=== PATIENT | female | born 1970 | race Caucasian/White ===

== ENCOUNTER 2019-04-15 13:41 | Emergency (ER) | payer MEDICAID ==
[2019-04-15] MEDS ORDERED: Sodium Chloride 0.9% 1,000 ML IV SCH (14:30)
[2019-04-15] MEDS ORDERED: Ondansetron 4 MG/2 ML SDV IVPUSH ONE (14:30)
[2019-04-15] MEDS ORDERED: LORazepam 2 MG/ML SDV IVPUSH ONE (14:31)
--- NOTE | 2019-04-15 14:42 | EDM.PDOC ---
ED HPI GENERAL MEDICAL PROBLEM - General Chief Complaint: Abdominal Pain Time Seen by Provider: 04/15/19 14:20 Source of Information: Reports: Patient, EMS, EMS Notes Reviewed History Limitations: Reports: No Limitations, Intoxication - History of Present Illness INITIAL COMMENTS - FREE TEXT/NARRATIVE: This patient presents to the ED via EMS for evaluation of abdominal pain and vomiting. EMS was called to the residence for an unresponsive patient; however, upon arrival the patient was not unresponsive. She states she has been drinking heavily and daily since February. She states that she drank 1 pint of vodka yesterday and has been vomiting. Vomiting started yesterday and has gotten much worse today. She is also complaining of right upper quadrant abdominal pain with nausea. She states she started drinking when she woke up this morning because she "was in so much pain." She does not know how much alcohol she has drank today. She has vomited countless times today. She is unsure if she had any urine output this morning or not. She is also complaining of a headache, denies chest pain. Onset: Gradual Onset Date: 04/12/19 Duration: Getting Worse Location: Reports: Abdomen Quality: Reports: Burning, Stabbing Severity: Severe Improves with: Reports: None Worsens with: Reports: None Associated Symptoms: Reports: Diaphoresis, Headaches, Nausea/Vomiting. Denies: Chest Pain, Fever/Chills - Related Data Allergies Allergy/AdvReac Type Severity Reaction Status Date / Time hydrocodone Allergy Rash Unverified 11/20/13 21:14 oxycodone [Oxycodone] Allergy Hives Unverified 11/20/13 21:14 Home Meds: Home Meds Escitalopram [Lexapro] 10 mg PO DAILY 05/10/13 [History] Gabapentin [Gralise] 300 mg PO TID 05/10/13 [History] Omeprazole 20 mg PO DAILY 05/10/13 [History] Ondansetron HCl [Zofran] 4 mg PO Q6HR 05/10/13 [History] Potassium Chloride 10 meq PO DAILY 05/10/13 [History] amLODIPine Besylate [Norvasc] 10 mg PO 05/10/13 [History] busPIRone HCl [busPIRone] 15 mg PO BID 05/10/13 [History] Methocarbamol [Robaxin] 1,500 mg PO QID 04/24/14 [History] SUMAtriptan Succinate [Imitrex] 50 mg PO PRN 12/21/13 [History] Social & Family History - Living Situation & Occupation Living situation: Reports: Occupation: Unemployed ED ROS GENERAL - Review of Systems Review Of Systems: See Below Constitutional: Reports: Diaphoresis, Other (Patient intoxicated) HEENT: Reports: No Symptoms Respiratory: Reports: No Symptoms Cardiovascular: Reports: No Symptoms GI/Abdominal: Reports: Abdominal Pain, Decreased Appetite, Melena (some blood in emesis yesterday), Nausea, Vomiting. Denies: Diarrhea Musculoskeletal: Reports: No Symptoms Skin: Reports: Diaphoresis Neurological: Reports: Change in Speech (mildly slurred speech) ED EXAM, GI/ABD - Physical Exam Exam: See Below Exam Limited By: Intoxication General Appearance: Alert, No Apparent Distress Eyes: Bilateral: Normal Appearance Ears: Normal External Exam Nose: Normal Inspection Throat/Mouth: Normal Inspection, Normal Oropharynx, No Airway Compromise Head: Atraumatic, Normocephalic Neck: Normal Inspection, Non-Tender, Full Range of Motion Respiratory/Chest: Lungs Clear, Normal Breath Sounds, Chest Non-Tender Cardiovascular: Regular Rate, Rhythm GI/Abdominal Exam: Distended, Tender (exquisite tenderness in RUQ; moderate tenderness in all other quadrants), Abnormal Bowel Sounds (hyperactive) Extremities: Normal Inspection Neurological: Alert, Other (intoxicated) Skin Exam: Warm, Dry Course - Vital Signs Last Recorded V/S: Last Vital Signs Temp 37.1 C 04/15/19 16:02 Pulse 103 H 04/15/19 16:02 Resp 16 04/15/19 16:02 BP 122/67 04/15/19 16:02 Pulse Ox 88 L 04/15/19 16:02 - Orders/Labs/Meds Orders: Active Orders 24 hr Category Date Time Status Abdomen Pelvis w Cont [CT] Stat Exams 04/15/19 14:29 Taken MVI, Adult with Vitamin K [Infuvite Adult] 10 ml Med 04/15/19 14:45 Active Thiamine [Vitamin B-1] 100 mg Folic Acid 1 mg Magnesium Sulfate [Magnesium Sulfate 50%] 3 gm Sodium Chloride 0.9% [Normal Saline] 1,000 ml IV ASDIRECTED Ondansetron [Zofran] Med 08/17/19 18:17 Active 4 mg IVPUSH Q4H PRN Sodium Chloride 0.9% [Normal Saline] 1,000 ml Med 04/15/19 14:30 Active IV ASDIRECTED Medication Orders Sodium Chloride (Normal Saline) 1,000 mls @ 1,000 mls/hr IV ASDIRECTED KELLEY Last Admin: 04/15/19 14:35 Dose: 1,000 mls/hr Multivitamins/Minerals 10 ml/Thiamine HCl 100 mg/ Folic Acid 1 mg/ Magnesium Sulfate 3 gm/ Sodium Chloride 1,017.2 mls @ 500 mls/hr IV ASDIRECTED KELLEY Last Admin: 04/15/19 15:36 Dose: 500 mls/hr Ondansetron HCl (Zofran) 4 mg IVPUSH Q4H PRN PRN Reason: Nausea/Vomiting Last Admin: 04/15/19 18:18 Dose: 4 mg Labs: Laboratory Tests 04/15/19 04/15/19 04/15/19 Range/Units 14:30 14:30 16:45 WBC 4.4 D (4.0-11.0) K/uL RBC 4.74 (3.80-5.80) M/uL Hgb 13.9 (11.5-16.5) g/dL Hct 42.4 (37.0-47.0) % MCV 90 (76-96) fL MCH 29.3 (27.0-32.0) pg MCHC 32.8 (31.0-35.0) g/dL RDW 17.3 H (11.0-16.0) % Plt Count 160 D (150-500) K/uL MPV 10.1 H (6.0-10.0) fL Neut % (Auto) 35.1 L (45.0-70.0) % Lymph % (Auto) 52.3 H (20.0-40.0) % [place] % (Auto) 10.7 H (3.0-10.0) % Eos % (Auto) 1.4 (1.0-5.0) % Baso % (Auto) 0.5 (0.0-0.5) % Neut # (Auto) 1.54 L (2.00-7.50) K/uL Lymph # (Auto) 2.29 (1.50-4.00) K/uL [place] # (Auto) 0.47 (0.20-0.80) K/uL Eos # (Auto) 0.06 (0.04-0.40) K/uL Baso # (Auto) 0.02 (0.02-0.10) K/uL Sodium 143 (136-145) mmol/L Potassium 4.6 (3.5-5.1) mmol/L Chloride 101 (98-107) mmol/L Carbon Dioxide 24.4 (21.0-32.0) mmol/L Anion Gap 22.2 H (5.0-15.0) mmol/L BUN 8 D (8-26) mg/dL Creatinine 0.85 (0.55-1.02) mg/dL Est Cr Clr Drug Dosing TNP Estimated GFR (MDRD) > 60 (>60) MLS/MIN BUN/Creatinine Ratio 9.4 (6-25) Glucose 60 L D (74-100) mg/dL Calcium 8.8 (8.5-10.1) mg/dL Total Bilirubin 0.8 (0.0-1.0) mg/dL AST 343 H (15-37) U/L ALT 216 H (12-78) U/L Alkaline Phosphatase 63 (46-116) U/L Total Protein 7.7 (6.4-8.2) g/dL Albumin 3.9 (3.4-5.0) g/dL Globulin 3.8 (2.2-4.2) g/dL Albumin/Globulin Ratio 1.0 (0.8-2.0) Urine Opiates Screen Negative (NEGATIVE) Ur Oxycodone Screen Negative (NEGATIVE) Urine Methadone Screen Negative (NEGATIVE) Ur Barbiturates Screen Negative (NEGATIVE) Ur Tricyclics Screen Negative (NEGATIVE) Ur Phencyclidine Scrn Negative (NEGATIVE) Ur Amphetamine Screen Negative (NEGATIVE) U Methamphetamines Scrn Negative (NEGATIVE) Urine MDMA Screen Negative (NEGATIVE) U Benzodiazepines Scrn Positive H (NEGATIVE) U Cocaine Metab Screen Negative (NEGATIVE) U Marijuana (THC) Screen Negative (NEGATIVE) Ethyl Alcohol 291.0 H (0.0-0.0) mg/dL Meds: Medications Generic Name Dose Route Start Last Admin Trade Name Freq PRN Reason Stop Dose Admin Sodium Chloride 1,000 mls @ 1,000 mls/hr 04/15/19 14:30 04/15/19 14:35 Normal Saline IV 1,000 mls/hr ASDIRECTED KELLEY Administration Multivitamins/Minerals 10 ml/ 1,017.2 mls @ 500 mls/hr 04/15/19 14:45 15:36 Thiamine HCl 100 mg/ Folic IV 500 mls/hr Acid 1 mg/ Magnesium Sulfate 3 ASDIRECTED KELLEY Administration gm/ Sodium Chloride Ondansetron HCl 4 mg 04/15/19 18:17 04/15/19 18:18 Zofran IVPUSH 4 mg Q4H PRN Administration Nausea/Vomiting Discontinued Medications Generic Name Dose Route Start Last Admin Trade Name Freq PRN Reason Stop Dose Admin Fentanyl 50 mcg 04/15/19 15:11 04/15/19 15:41 Sublimaze IVPUSH 04/15/19 15:12 Not Given ONETIME ONE Fentanyl Confirm 04/15/19 15:38 04/15/19 15:38 Sublimaze Administered 04/15/19 15:39 100 mcg Dose Administration 100 mcg .ROUTE .STK-MED ONE Lorazepam 1 mg 04/15/19 14:31 04/15/19 14:40 Ativan IVPUSH 04/15/19 14:32 1 mg ONETIME ONE Administration Lorazepam Confirm 04/15/19 14:46 04/15/19 16:33 Ativan Administered 04/15/19 14:47 Not Given Dose 2 mg .ROUTE .STK-MED ONE Ondansetron HCl 8 mg 04/15/19 14:30 04/15/19 14:43 Zofran IVPUSH 04/15/19 14:31 8 mg ONETIME ONE Administration Ondansetron HCl Confirm 04/15/19 14:46 04/15/19 16:34 Zofran Administered 04/15/19 14:47 Not Given Dose 4 mg .ROUTE .STK-MED ONE Ondansetron HCl Confirm 04/15/19 14:48 04/15/19 16:34 Zofran Administered 04/15/19 14:49 Not Given Dose 4 mg .ROUTE .STK-MED ONE Ondansetron HCl Confirm 04/15/19 18:19 Zofran Administered 04/15/19 18:20 Dose 4 mg .ROUTE .STK-MED ONE - Re-Assessments/Exams Free Text/Narrative Re-Assessment/Exam: 04/15/19 15:55 Patient improved with nausea resolved and decreased abdominal pain to a "tolerable" level. Discussed lab and CT results with patient. Questions answered. Patient wants to go to detox and addiction treatment. Contact made with [facility] in [place]. They do have a bed available and will accept this patient's transfer to their facility. Patient agreed with this plan. 04/15/19 18:34 Arrangements made for transfer of this patient to the [facility] in [place] via EMS. Patient is cooperative and willing to be transferred. Departure - Departure Time of Disposition: 18:40 Disposition: DC/Tfer to Other 70 Condition: Fair Clinical Impression: Alcohol intoxication - Discharge Information *PRESCRIPTION DRUG MONITORING PROGRAM REVIEWED*: Not Applicable *COPY OF PRESCRIPTION DRUG MONITORING REPORT IN PATIENT TRINO: Not Applicable Referrals: PCP,None [Primary Care Provider] - Forms: ED Department Discharge, ED Return to Work/School Form, Interfacility Transfer EMTALA - My Orders Last 24 Hours: My Active Orders 04/15/19 14:29 Abdomen Pelvis w Cont [CT] Stat 04/15/19 14:30 Sodium Chloride 0.9% [Normal Saline] 1,000 ml IV ASDIRECTED 04/15/19 14:45 MVI, Adult with Vitamin K [Infuvite Adult] 10 ml Thiamine [Vitamin B-1] 100 mg Folic Acid 1 mg Magnesium Sulfate [Magnesium Sulfate 50%] 3 gm Sodium Chloride 0.9% [Normal Saline] 1,000 ml IV ASDIRECTED - Assessment/Plan Last 24 Hours: My Active Orders 04/15/19 14:29 Abdomen Pelvis w Cont [CT] Stat 04/15/19 14:30 Sodium Chloride 0.9% [Normal Saline] 1,000 ml IV ASDIRECTED 04/15/19 14:45 MVI, Adult with Vitamin K [Infuvite Adult] 10 ml Thiamine [Vitamin B-1] 100 mg Folic Acid 1 mg Magnesium Sulfate [Magnesium Sulfate 50%] 3 gm Sodium Chloride 0.9% [Normal Saline] 1,000 ml IV ASDIRECTED
[2019-04-15] MEDS ORDERED: MVI, Adult with Vitamin K 10 ML, Thiamine 100 MG, Folic Acid 1 MG, Magnesium Sulfate 3 ... IV SCH ×5 (14:45)
[2019-04-15] MEDS ORDERED: LORazepam 2 MG/ML SDV ONE (14:46)
[2019-04-15] MEDS ORDERED: Ondansetron 4 MG/2 ML SDV ONE ×3 (14:46→18:19)
[2019-04-15] MEDS ORDERED: fentaNYL 250 MCG/5 ML SDV IVPUSH ONE (15:11)
[2019-04-15] MEDS ORDERED: fentaNYL 100 MCG/2 ML SDV ONE (15:38)
[2019-04-15 16:04] VITALS: BP 122/67; PULSE 103
[2019-04-15] MEDS ORDERED: Ondansetron 4 MG/2 ML SDV IVPUSH PRN (18:17)
--- NOTE | 2019-04-16 18:00 | CRLCT ---
DATE OF SERVICE: 04/15/19 CLINICAL DATA: vomiting, abd distention ENHANCED ABDOMEN AND PELVIC CT: Comparison is made to a prior exam dated 10/27/2013. The lung bases are clear. There is diffuse fatty infiltration of the liver. No focal hepatic lesions. the gallbladder is mildly distended. No calcified gallstones. No pericholecystic fluid. No biliary duct dilatation. The spleen appears normal. The pancreas appears normal. The right and left adrenals appear normal. The right and left kidneys appear normal and enhance symmetrically. No hydronephrosis or hydroureter. The bladder is partially fluid filled. It appears normal. The appendix is not dilated. No evidence of appendicitis. There is mild mural thickening within the hepatic flexure of the colon. This is probably related to nondistention. Colitis should be considered. No free air. No free fluid. No dilated loops of bowel. No adenopathy. No aortic aneurysm or dissection. The patient is status post hysterectomy. There is a small umbilical hernia containing fat. There is a 2.0 cm fluid density lesion in the left ovary, consistent with a cyst. [id number] [facility]
== END 2019-04-15 18:47 | disposition other institution (70) ==
LOC: LB.ED 13:41
DX: F10.129 Alcohol abuse with intoxication, unspecified (principal); R10.11 Right upper quadrant pain; R10.12 Left upper quadrant pain; R10.31 Right lower quadrant pain; R10.32 Left lower quadrant pain; Z79.899 Other long term (current) drug therapy; Y90.8 Blood alcohol level of 240 mg/100 ml or more
CPT/HCPCS: 36415; 74177; 80053; 80307; 85025; 96361; 96365; 96366; 96375; 96376; 99285; G0480; J2060; J2405; J3010; J3411; J3475; J7030; A0425; A0429; J3490

== ENCOUNTER 2019-08-11 08:50 | Emergency (ER) | payer MEDICAID ==
[2019-08-11 09:09] VITALS: BP 122/79; PULSE 108
--- NOTE | 2019-08-11 09:21 | EDM.PDOC ---
ED HPI GENERAL MEDICAL PROBLEM - General Chief Complaint: Headache Stated Complaint: MIGRAINE Time Seen by Provider: 08/11/19 09:15 Source of Information: Reports: Patient, RN History Limitations: Reports: No Limitations - History of Present Illness INITIAL COMMENTS - FREE TEXT/NARRATIVE: 48 yo female presents with migraine for a couple days. She has tried taking her Sumatriptan without relief. She did try taking the Zofran without relief. She tried going to work today and the pain worsened and she came to the ER, eye are sensitive to light and she nauseated and holding her head and bending slightly forward protecting her eyes and holding her head. States she hasn't had a severe migraine like this for quite some time. 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 Head Pain Score (Numeric/FACES): 8 - Related Data Allergies Allergy/AdvReac Type Severity Reaction Status Date / Time hydrocodone Allergy Rash Verified 08/11/19 17:43 oxycodone [Oxycodone] Allergy Hives Verified 08/11/19 17:43 Home Meds: Home Meds Gabapentin [Gralise] 300 mg PO TID 05/10/13 [History] Ondansetron HCl [Zofran] 4 mg PO Q6HR PRN 05/10/13 [History] busPIRone HCl [busPIRone] 15 mg PO BID 05/10/13 [History] Methocarbamol [Robaxin] 1,500 mg PO QID 12/21/13 [History] SUMAtriptan Succinate [Imitrex] 50 mg PO BID PRN 12/21/13 [History] Albuterol [Ventolin HFA] 2 sprays IN DAILY PRN 08/11/19 [History] Amoxicillin/Clavulanate K [Augmentin 875-125 MG] 1 tab PO BID #20 tablet [Rx] Baclofen 10 mg PO TID 08/11/19 [History] Famotidine 40 mg PO BID 08/11/19 [History] Fluticasone Propionate [Flovent] 2 spray INH DAILY PRN 08/11/19 [History] Multivitamin [Daily Chente] 1 tab PO DAILY 08/11/19 [History] traZODone HCl [Trazodone HCl] 100 mg PO DAILY 08/11/19 [History] Social & Family History - Living Situation & Occupation Living situation: Reports: Occupation: Unemployed ED ROS GENERAL - Review of Systems Review Of Systems: See Below Constitutional: Reports: Weakness, Decreased Appetite HEENT: Reports: Glasses, Other (migraine headache). Denies: Ear Pain, Eye Pain , Throat Pain Respiratory: Reports: No Symptoms Cardiovascular: Reports: No Symptoms GI/Abdominal: Reports: Nausea (Took zofran at home yesterday). Denies: Abdominal Pain, Diarrhea, Vomiting Musculoskeletal: Reports: No Symptoms Skin: Reports: No Symptoms Neurological: Reports: Headache. Denies: Confusion, Dizziness, Trouble Speaking , Difficulty Walking Psychiatric: Reports: No Symptoms - Physical Exam Exam: See Below Exam Limited By: No Limitations General Appearance: Alert, No Apparent Distress Eye Exam: Bilateral Eye: Vision Changes (photophobia and some blurred vision) Ears: Normal External Exam, Hearing Grossly Normal Nose: Normal Inspection Throat/Mouth: Normal Inspection, Normal Lips, Normal Voice, No Airway Compromise Head Exam: Atraumatic, Normocephalic, Sinus Tenderness Neck: Normal Inspection, Supple, Full Range of Motion Respiratory/Chest: No Respiratory Distress, Lungs Clear, Normal Breath Sounds Cardiovascular: Normal Peripheral Pulses, Regular Rate, Rhythm, No Edema GI/Abdominal: Normal Bowel Sounds, Soft, Non-Tender Neuro Exam (Abbreviated): Alert, Oriented, Normal Cognition Extremities: Normal Inspection, Normal Range of Motion, No Pedal Edema, Normal Capillary Refill Psychiatric: Normal Affect, Normal Mood Skin Exam: Warm, Dry, Normal Color Course - Vital Signs Last Recorded V/S: Last Vital Signs Temp 97 F 08/11/19 09:05 Pulse 108 H 08/11/19 09:05 Resp 20 08/11/19 09:05 BP 122/79 08/11/19 09:05 Pulse Ox 97 08/11/19 09:05 - Orders/Labs/Meds Meds: Medications Discontinued Medications Generic Name Dose Route Start Last Admin Trade Name Freq PRN Reason Stop Dose Admin Acetaminophen 1,000 mg 08/11/19 09:30 08/11/19 10:04 Tylenol Extra Strength PO 08/11/19 09:31 1,000 mg ONETIME ONE Administration Acetaminophen Confirm 08/11/19 10:10 08/11/19 10:12 Tylenol Administered 08/11/19 10:11 Not Given Dose 975 mg .ROUTE .STK-MED ONE Sodium Chloride 1,000 mls @ 999 mls/hr 08/11/19 09:30 08/11/19 09:34 Normal Saline IV 999 mls/hr ASDIRECTED KELLEY Administration Ketorolac Tromethamine 15 mg 08/11/19 09:23 08/11/19 09:37 Toradol IVPUSH 08/11/19 09:24 15 mg ONETIME ONE Administration Ketorolac Tromethamine Confirm 08/11/19 09:44 08/11/19 10:03 Toradol Administered 08/11/19 09:45 Not Given Dose 30 mg .ROUTE .STK-MED ONE Ondansetron HCl 4 mg 08/11/19 09:29 08/11/19 09:40 Zofran IVPUSH 08/11/19 09:30 4 mg ONETIME ONE Administration Ondansetron HCl Confirm 08/11/19 09:44 08/11/19 10:03 Zofran Administered 08/11/19 09:45 Not Given Dose 4 mg .ROUTE .STK-MED ONE - Re-Assessments/Exams Free Text/Narrative Re-Assessment/Exam: 08/11/19 10:06 400-500 IN fluids infused, Ketorolac and Zofran IV given. Pt states relief of severe pain and now some pressure continues to forehead. Continue with IV fluids and Tylenol 1,000 mg PO X 1. 08/11/19 11:13 sinus pressure continues, but migraine is improved. Will start Augmentin bid X 10 days. Recommend increase water daily and RTC in 1-2 weeks. Departure - Departure Time of Disposition: 11:20 Disposition: Home, Self-Care 01 Condition: Good Clinical Impression: Migraine, Acute sinus infection - Discharge Information *PRESCRIPTION DRUG MONITORING PROGRAM REVIEWED*: Not Applicable *COPY OF PRESCRIPTION DRUG MONITORING REPORT IN PATIENT TRINO: Not Applicable Prescriptions: Amoxicillin/Clavulanate K [Augmentin 875-125 MG] 1 tab PO BID #20 tablet Instructions: Steps to Quit Smoking, [id number], Amoxicillin; Clavulanic Acid tablets, Sinusitis, Adult, [id number], Migraine Headache Referrals: PCP,None [Primary Care Provider] - Forms: ED Department Discharge Care Plan Goals: Take augmentin 2 x day for 10 days. Drink plenty of fluids. Follow up in clinic when done with medicine Sepsis Event Note - Evaluation Sepsis Screening Result: No Definite Risk - Focused Exam Vital Signs: Vital Signs Temp Pulse Resp BP Pulse Ox 08/11/19 09:05 97 F 108 H 20 122/79 97 Date Exam was Performed: 08/11/19 Time Exam was Performed: 17:48 - Assessment/Plan Plan: Sinus pressure continues, but migraine is improved after one liter of Nacl, Zofran 4 mg IV and Toradol 15 mg IV.. Will start Augmentin bid X 10 days for acute sinustitis. Recommend increase water daily and RTC in 1-2 weeks or return to ER if symptoms worsen.
[2019-08-11] MEDS ORDERED: Ketorolac 60 MG/2 ML SDV IVPUSH ONE (09:23)
[2019-08-11] MEDS ORDERED: Ondansetron 4 MG/2 ML SDV IVPUSH ONE (09:29)
[2019-08-11] MEDS ORDERED: Sodium Chloride 0.9% 1,000 ML IV SCH (09:30)
[2019-08-11] MEDS ORDERED: Acetaminophen 500 MG Tab PO ONE (09:30)
[2019-08-11] MEDS ORDERED: Ondansetron 4 MG/2 ML SDV ONE (09:44)
[2019-08-11] MEDS ORDERED: Ketorolac 30 MG/ML SDV ONE (09:44)
[2019-08-11] MEDS ORDERED: Acetaminophen 325 MG Tab ONE (10:10)
== END 2019-08-11 11:20 | disposition home or self-care (01) ==
LOC: LB.ED 08:50
DX: G43.909 Migraine, unspecified, not intractable, without status migrainosus (principal); J01.90 Acute sinusitis, unspecified; Z88.5 Allergy status to narcotic agent
CPT/HCPCS: 96361; 96374; 96375; 99284; A9270; J1885; J2405; J7030

== ENCOUNTER 2019-08-13 11:30 | Emergency (ER) | payer MEDICAID ==
[2019-08-13] MEDS ORDERED: traMADol 50 MG Tab ONE (12:30)
[2019-08-13] MEDS ORDERED: Ketorolac 60 MG/2 ML SDV IVPUSH ONE (12:30)
[2019-08-13] MEDS ORDERED: Ondansetron 4 MG/2 ML SDV IVPUSH ONE (12:30)
[2019-08-13] MEDS ORDERED: diphenhydrAMINE 50 MG/ML SDV IVPUSH ONE (12:31)
[2019-08-13] MEDS ORDERED: Sodium Chloride 0.9% 1,000 ML IV ONE (12:37)
[2019-08-13] MEDS ORDERED: Ondansetron 4 MG/2 ML SDV ONE (12:40)
[2019-08-13] MEDS ORDERED: Ketorolac 60 MG/2 ML SDV ONE (12:49)
[2019-08-13] MEDS ORDERED: diphenhydrAMINE 50 MG/ML SDV ONE (12:50)
[2019-08-13 13:59] VITALS: PULSE 96
[2019-08-13] MEDS ORDERED: Morphine 2 MG/ML Syringe IVPUSH PRN (14:25)
[2019-08-13] MEDS ORDERED: Morphine 2 MG/ML Syringe ONE (14:27)
[2019-08-13] MEDS ORDERED: Sodium Chloride 0.9% 50 ML SDV FLUSH ONE (14:59)
[2019-08-13] MEDS ORDERED: Diatrizoate Meglumine/Diatrizoate Sodium 37% 30 ML Bottle PO SCH (15:00)
[2019-08-13] MEDS ORDERED: Iodixanol 652 MG/ML 100 ML Bottle IV SCH (15:00)
[2019-08-13 15:26] VITALS: BP 147/101
[2019-08-13] MEDS ORDERED: Sodium Chloride 0.9% 500 ML IV SCH (15:30)
--- NOTE | 2019-08-13 19:31 | CT ---
DATE OF SERVICE: 08/13/2019 CLINICAL DATA: Hx of pancreatitis, abd pain. ENHANCED ABDOMEN AND PELVIS CT: Multislice acquisition through the abdomen and pelvis with IV and oral contrast was performed. Comparison is made to a prior abdomen and pelvis CT dated 04/15/2019. The lung bases are clear. There is diffuse fatty infiltration of the liver. No focal hepatic lesions. The gallbladder appears normal. The spleen appears normal. The pancreas appears normal. The right and left adrenals appear normal. The right and left kidneys appear normal and enhance symmetrically. No hydronephrosis or hydroureter. There is a small amount of fluid within the bladder. It appears normal. The patient is status post hysterectomy. No evidence of appendicitis. No free air. No free fluid. No dilated loops of bowel. No adenopathy. No aortic aneurysm or dissection. There is degenerative disc disease throughout the lower thoracic and lumbar spine. IMPRESSION: No acute abnormalities. Other findings as discussed above. [id number] [facility]
--- NOTE | 2019-08-13 23:15 | ER ---
REASON FOR EMERGENCY ROOM VISIT: Headache and abdominal pain. HISTORY OF PRESENT ILLNESS: This is a 49-year-old woman who comes in with what she describes as a migraine that started 2 days ago at work. She had been seen 2 days ago as well with what was thought to be sinusitis by Leticia Chandler and placed on amoxicillin and clavulanate for that. Since she has been taking that amoxicillin and clavulanate, she has had some nausea and her headache has increased, particularly when blowing her nose and so forth. She did have some bloody mucus with blowing her nose yesterday. Yesterday evening, she began to have some nausea and vomiting x2. This was accompanied by some epigastric pain that moved over toward the right upper quadrant area. She states the pain has been steady, but it does tend to wax and wane somewhat. She had 3 loose stools on Wednesday, but none yesterday. She states she was sweating last evening, but has not had any documented fever. One week ago, she had "flu" manifested by aches, runny nose, and cough. She thinks that the Augmentin has caused much of her GI upset. She does state that the headache is in the frontal area more to the right of the midline and has not had any "thunderclap" characteristics. She does have an aversion to light and loud noises. The patient readily admits "I am an alcoholic" and states that she has failed inpatient treatment on 4 occasions. The last inpatient treatment being 1-1/2 years ago and that lasted 3 months. She does admit that approximately 5 days ago, she drank about 6 hard liquor drinks, but none since then. She does admit that she still smokes. She is active user of marijuana. PAST MEDICAL HISTORY: Significant for, 1. Multiple admissions related to alcohol abuse or dependence. 2. History of drug dependence. 3. History of seizure. 4. History of back pain. 5. History of migraines. 6. Sinus infection as described above. MEDICATIONS: Reviewed. Please see electronic medical record. They include the following; famotidine 40 mg p.o. b.i.d., multivitamins, gabapentin 300 mg p.o. t.i.d., baclofen 10 mg p.o. t.i.d., Augmentin 875 one b.i.d., Zofran, Robaxin, fluticasone inhaler, buspirone HCL, sumatriptan (Imitrex), trazodone, and albuterol inhaler. ALLERGIES: TO HYDROCODONE AND OXYCODONE (HIVES). REVIEW OF SYSTEMS: Pertinent positives and negatives as listed in the HPI. PHYSICAL EXAMINATION: GENERAL: She is somewhat uncomfortable in appearance. VITAL SIGNS: She is afebrile. Her pulse was 120 when she came in, but came down to 92 one hour later. Blood pressure 152/103, O2 sats 100% on room air, respiratory rate 20. HEENT: Head is normocephalic. TMs are normal. No conjunctivitis. No scleral icterus is noted. Oropharynx is normal. Nasal mucosa does appear to be slightly erythematous and edematous. NECK: Supple. No adenopathy. No JVD. CHEST: Good air exchange bilaterally with no wheezes, rhonchi, or rales. CARDIAC: Regular rate without murmur. ABDOMEN: Obese, it is soft. She has mild tenderness to deep palpation in the epigastrium, primarily. There is no rebound or guarding and no percussion tenderness. No palpable masses are noted. There is no hepatosplenomegaly. EXTREMITIES: Normal pulses. No edema. SKIN: No rashes. LABORATORY DATA: Her CBC is normal with a white count of 5.4 and hemoglobin of 15.6. Her CMP showed that her electrolytes are normal. She does have a borderline low CO2 content and her anion gap is 21. Her creatinine is normal with an estimated GFR of 60. Her total bilirubin is elevated at 3.0 with mild elevation of AST at 44. Her alkaline phosphatase and ALT are normal. Her amylase and lipase are normal. A CT scan with contrast was obtained with no remarkable findings apart from a fatty liver. No stones were noted. No abnormalities of the pancreas were noted. IMPRESSION: 1. Headache, possibly migraine versus sinus related. 2. Gastrointestinal upset with epigastric pain and mildly elevated bilirubin and fatty liver, uncertain etiology. 3. Alcoholism. 4. History of illicit drug use. EMERGENCY ROOM COURSE: She was given Toradol 60 mg IV x1 as well as Benadryl 50 mg IV and Zofran 4 mg IV. She also received 2 mg of morphine couple of hours later as her pain tended to persist. In addition to this, she received 1 L of normal saline IV. Gradually, she felt some considerable improvement, but was still having some epigastric discomfort at the time of discharge. PLAN: The results of the blood work and the CT findings were discussed with her as well as my impression. What remains to be determined is whether or not her epigastric discomfort is due to gallstones, although the CT scan does not reveal anything. An ultrasound probably would be the next step in her evaluation unless all of this passes overnight. I did discuss with her the role of continued alcohol use in all of this and she seems to know this very well. She also seems to be very resigned to her alcoholism at this point in time. We did discuss possible treatment again and she did not seem to be very receptive to the idea. I told her to discontinue taking the Augmentin at least this evening's dose and see how she feels tomorrow and to check in with her provider, Leticia Chandler, in the morning to see if something ought to be given as an alternative. I am not sure antibiotics are necessary for her sinus problems at this point anyway. I recommended she continue with her Prilosec that she is taking at home and to perhaps add some antacids. We did give her tramadol 50 mg dispensed #10 one q.4 hours p.r.n. pain. She understands and agrees with this plan. All questions were answered. MARK /[id number]
== END 2019-08-13 16:50 | disposition home or self-care (01) ==
LOC: LB.ED 11:30
DX: R51 Headache (principal); K30 Functional dyspepsia; R74.8 Abnormal levels of other serum enzymes; K76.0 Fatty (change of) liver, not elsewhere classified; F10.20 Alcohol dependence, uncomplicated; Y90.0 Blood alcohol level of less than 20 mg/100 ml; Z86.59 Personal history of other mental and behavioral disorders; Z88.5 Allergy status to narcotic agent
CPT/HCPCS: 36415; 74177; 80053; 82150; 83690; 85025; 87804; 87804-59; 96361; 96374; 96375; 99284-25; A9270-GY; G0480; J1200; J1885; J2270; J2405; J7030; Q9963

== ENCOUNTER 2019-09-04 12:13 | Emergency (ER) | payer MEDICAID ==
[2019-09-04] MEDS ORDERED: Sodium Chloride 0.9% 1,000 ML IV SCH (12:45)
[2019-09-04] MEDS: Ondansetron 4 MG/2 ML SDV IVPUSH ONE ×2 (13:00→14:14)
[2019-09-04] MEDS ORDERED: LORazepam 2 MG/ML SDV IVPUSH ONE (13:00)
[2019-09-04] MEDS ORDERED: LORazepam 0.5 MG Tab PO PRN (13:02)
[2019-09-04] MEDS ORDERED: Ondansetron 4 MG/2 ML SDV ONE ×2 (13:06→14:18)
--- NOTE | 2019-09-04 13:11 | EDM.PDOC ---
ED HPI GENERAL MEDICAL PROBLEM - General Chief Complaint: Abdominal Pain Stated Complaint: THROWING UP BLOOD Time Seen by Provider: 09/04/19 12:40 Source of Information: Reports: Patient, RN History Limitations: Reports: No Limitations - History of Present Illness INITIAL COMMENTS - FREE TEXT/NARRATIVE: 49 yo female presents with abdominal pain, vomiting blood and had her last alcohol 3pm yesterday. She did take her acid reflux medication and thinks it stayed down. She presents via EMS. She is alert, and oriented and continues with dry heaves. She is having pain, in general and not feeling well. No hematemesis noted in ER. - Related Data Allergies Allergy/AdvReac Type Severity Reaction Status Date / Time hydrocodone Allergy Rash Verified 09/04/19 13:46 oxycodone [Oxycodone] Allergy Hives Verified 09/04/19 13:46 Home Meds: Home Meds Gabapentin [Gralise] 300 mg PO TID 05/10/13 [History] busPIRone HCl [busPIRone] 15 mg PO Q6HR 05/10/13 [History] SUMAtriptan Succinate [Imitrex] 50 mg PO BID PRN 12/21/13 [History] Albuterol [Ventolin HFA] 2 sprays IN DAILY PRN 08/11/19 [History] Baclofen 10 mg PO TID 08/11/19 [History] Fluticasone Propionate [Flovent] 2 spray INH DAILY PRN 08/11/19 [History] Multivitamin [Daily Chente] 1 tab PO DAILY 08/11/19 [History] traZODone HCl [Trazodone HCl] 100 mg PO DAILY 08/11/19 [History] Ondansetron [Zofran Odt] 1 tab SL TID 09/04/19 [History] Pantoprazole 1 tab PO DAILY 09/04/19 [History] Past Medical History HEENT 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: Sinusitis Cardiovascular 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: Hypertension Respiratory 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: Asthma Gastrointestinal 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: GERD, Pancreatitis, Other (See Below) Other Gastrointestinal History: hx ulcers several years ago 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: 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 JEWELSMITH History: hysterectomy - cysts Musculoskeletal 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: Arthritis, Back Pain, Chronic Neurological 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: Migraines Psychiatric 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: Addiction, Anxiety, Depression Dermatologic 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: Eczema - Infectious Disease History Infectious Disease 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: Chicken Pox Social & Family History - Family History Family Medical History: Noncontributory - Caffeine Use Caffeine Use: Reports: Coffee - Living Situation & Occupation Living situation: Reports: Occupation: Unemployed ED ROS GENERAL - Review of Systems Review Of Systems: See Below Constitutional: Reports: Weakness, Decreased Appetite HEENT: Reports: No Symptoms Respiratory: Reports: No Symptoms. Denies: Shortness of Breath, Wheezing, Cough Cardiovascular: Reports: No Symptoms. Denies: Chest Pain, Dyspnea on Exertion, Edema GI/Abdominal: Reports: Abdominal Pain, Decreased Appetite, Nausea, Vomiting : Reports: No Symptoms Musculoskeletal: Reports: Other (achiness all over.) Skin: Reports: No Symptoms Neurological: Reports: Headache. Denies: Dizziness, Trouble Speaking, Difficulty Walking Psychiatric: Reports: Anxiety Hematologic/Lymphatic: Reports: No Symptoms Immunologic: Reports: No Symptoms ED EXAM, GI/ABD - Physical Exam Exam: See Below Exam Limited By: No Limitations General Appearance: Alert, Anxious, Mild Distress Eyes: Bilateral: Normal Appearance Ears: Hearing Grossly Normal Nose: Normal Inspection, Normal Mucosa Throat/Mouth: Normal Inspection, Normal Voice, No Airway Compromise Head: Atraumatic, Normocephalic Neck: Normal Inspection, Supple, Non-Tender Respiratory/Chest: No Respiratory Distress, Lungs Clear, Normal Breath Sounds. No: Decreased Breath Sounds, Crackles Cardiovascular: No Edema, No JVD, No Murmur, Tachycardia GI/Abdominal Exam: Normal Bowel Sounds, Soft, No Distention, No Mass, Tender Back Exam: No: Paraspinal Tenderness, Vertebral Tenderness Extremities: Normal Inspection, No Pedal Edema, Normal Capillary Refill. No: Arm Pain, Leg Pain, Increased Warmth Neurological: Alert, Oriented, Normal Cognition Psychiatric: Anxious Skin Exam: Warm, Dry, Normal Color Lymphatic: No Adenopathy EKG INTERPRETATION EKG Date: 09/04/19 Time: 12:45 Rate (Beats/Min): 149 P-Wave: Present QRS: Normal ST-T: Normal Course - Vital Signs Last Recorded V/S: Last Vital Signs Temp 98.7 F 09/04/19 16:55 Pulse 141 H 09/04/19 16:55 Resp 20 09/04/19 16:55 BP 146/82 H 09/04/19 16:55 Pulse Ox 100 09/04/19 16:55 - Orders/Labs/Meds Orders: Active Orders 24 hr Category Date Time Status Cardiac Monitoring [RC] .As Directed Care 09/04/19 12:40 Active EKG Documentation Completion [RC] ASDIRECTED Care 09/04/19 12:39 Active GLUCOSE POC LAB TO COLLECT [POC] Stat Lab 09/04/19 14:56 Ordered Labs: Laboratory Tests 09/04/19 09/04/19 09/04/19 Range/Units 12:55 12:55 12:55 WBC 6.1 (4.0-11.0) K/uL RBC 5.75 (3.80-5.80) M/uL Hgb 15.9 (11.5-16.5) g/dL Hct 49.0 H (37.0-47.0) % MCV 85 (76-96) fL MCH 27.7 (27.0-32.0) pg MCHC 32.4 (31.0-35.0) g/dL RDW 14.9 (11.0-16.0) % Plt Count 111 L D (150-500) K/uL MPV 10.6 H (6.0-10.0) fL Neut % (Auto) 72.9 H (45.0-70.0) % Lymph % (Auto) 19.8 L (20.0-40.0) % [place] % (Auto) 6.3 (3.0-10.0) % Eos % (Auto) 0.7 L (1.0-5.0) % Baso % (Auto) 0.3 (0.0-0.5) % Neut # (Auto) 4.41 (2.00-7.50) K/uL Lymph # (Auto) 1.20 L (1.50-4.00) K/uL [place] # (Auto) 0.38 (0.20-0.80) K/uL Eos # (Auto) 0.04 (0.04-0.40) K/uL Baso # (Auto) 0.02 (0.02-0.10) K/uL VBG pH (7.31-7.41) Sodium 136 (136-145) mmol/L Potassium 4.8 D (3.5-5.1) mmol/L Chloride 96 L (98-107) mmol/L Carbon Dioxide 9.4 L* D (21.0-32.0) mmol/L Anion Gap 35.4 H (5.0-15.0) mmol/L BUN 17 D (8-26) mg/dL Creatinine 0.98 (0.55-1.02) mg/dL Est Cr Clr Drug Dosing 68.27 mL/min Estimated GFR (MDRD) > 60 (>60) MLS/MIN BUN/Creatinine Ratio 17.3 (6-25) Glucose 59 L D (74-100) mg/dL POC Glucose (74-110) mg/dL Lactic Acid 8.52 H (0.90-1.70) mmol/L Calcium 8.7 (8.5-10.1) mg/dL Total Bilirubin 1.0 D (0.0-1.0) mg/dL AST 46 H (15-37) U/L ALT 44 (12-78) U/L Alkaline Phosphatase 72 (46-116) U/L Troponin I < 0.017 (0.000-0.060) ng/mL Total Protein 8.7 H (6.4-8.2) g/dL Albumin 4.3 (3.4-5.0) g/dL Globulin 4.4 H (2.2-4.2) g/dL Albumin/Globulin Ratio 1.0 (0.8-2.0) Lipase (73-393) U/L TSH, Ultra Sensitive (0.358-3.740) uIU/mL Urine Color Urine Appearance (CLEAR) Urine pH (5.0-8.0) Ur Specific Pyrites (1.003-1.030) Urine Protein (NEGATIVE) mg/dL Urine Glucose (UA) (NEGATIVE) mg/dL Urine Ketones (NEGATIVE) mg/dL Urine Occult Blood (NEGATIVE) Urine Nitrite (NEGATIVE) Urine Bilirubin (NEGATIVE) Urine Urobilinogen (0.2-1.0) E.U./dL Ur Leukocyte Esterase (NEGATIVE) Urine RBC /HPF Urine WBC /HPF Ur Squamous Epith Cells /HPF Urine Bacteria /HPF Hyaline Casts /HPF Urine Opiates Screen (NEGATIVE) Ur Oxycodone Screen (NEGATIVE) Urine Methadone Screen (NEGATIVE) Ur Barbiturates Screen (NEGATIVE) Ur Tricyclics Screen (NEGATIVE) Ur Phencyclidine Scrn (NEGATIVE) Ur Amphetamine Screen (NEGATIVE) U Methamphetamines Scrn (NEGATIVE) Urine MDMA Screen (NEGATIVE) U Benzodiazepines Scrn (NEGATIVE) U Cocaine Metab Screen (NEGATIVE) U Marijuana (THC) Screen (NEGATIVE) Ethyl Alcohol (<3.0) mg/dL 09/04/19 09/04/19 09/04/19 Range/Units 13:05 13:06 13:48 WBC (4.0-11.0) K/uL RBC (3.80-5.80) M/uL Hgb (11.5-16.5) g/dL Hct (37.0-47.0) % MCV (76-96) fL MCH (27.0-32.0) pg MCHC (31.0-35.0) g/dL RDW (11.0-16.0) % Plt Count (150-500) K/uL MPV (6.0-10.0) fL Neut % (Auto) (45.0-70.0) % Lymph % (Auto) (20.0-40.0) % Blackford % (Auto) (3.0-10.0) % Eos % (Auto) (1.0-5.0) % Baso % (Auto) (0.0-0.5) % Neut # (Auto) (2.00-7.50) K/uL Lymph # (Auto) (1.50-4.00) K/uL Blackford # (Auto) (0.20-0.80) K/uL Eos # (Auto) (0.04-0.40) K/uL Baso # (Auto) (0.02-0.10) K/uL VBG pH (7.31-7.41) Sodium (136-145) mmol/L Potassium (3.5-5.1) mmol/L Chloride (98-107) mmol/L Carbon Dioxide (21.0-32.0) mmol/L Anion Gap (5.0-15.0) mmol/L BUN (8-26) mg/dL Creatinine (0.55-1.02) mg/dL Est Cr Clr Drug Dosing mL/min Estimated GFR (MDRD) (>60) MLS/MIN BUN/Creatinine Ratio (6-25) Glucose (74-100) mg/dL POC Glucose 46 L* (74-110) mg/dL Lactic Acid (0.90-1.70) mmol/L Calcium (8.5-10.1) mg/dL Total Bilirubin (0.0-1.0) mg/dL AST (15-37) U/L ALT (12-78) U/L Alkaline Phosphatase (46-116) U/L Troponin I (0.000-0.060) ng/mL Total Protein (6.4-8.2) g/dL Albumin (3.4-5.0) g/dL Globulin (2.2-4.2) g/dL Albumin/Globulin Ratio (0.8-2.0) Lipase (73-393) U/L TSH, Ultra Sensitive 1.651 (0.358-3.740) uIU/mL Urine Color Urine Appearance (CLEAR) Urine pH (5.0-8.0) Ur Specific Pyrites (1.003-1.030) Urine Protein (NEGATIVE) mg/dL Urine Glucose (UA) (NEGATIVE) mg/dL Urine Ketones (NEGATIVE) mg/dL Urine Occult Blood (NEGATIVE) Urine Nitrite (NEGATIVE) Urine Bilirubin (NEGATIVE) Urine Urobilinogen (0.2-1.0) E.U./dL Ur Leukocyte Esterase (NEGATIVE) Urine RBC /HPF Urine WBC /HPF Ur Squamous Epith Cells /HPF Urine Bacteria /HPF Hyaline Casts /HPF Urine Opiates Screen (NEGATIVE) Ur Oxycodone Screen (NEGATIVE) Urine Methadone Screen (NEGATIVE) Ur Barbiturates Screen (NEGATIVE) Ur Tricyclics Screen (NEGATIVE) Ur Phencyclidine Scrn (NEGATIVE) Ur Amphetamine Screen (NEGATIVE) U Methamphetamines Scrn (NEGATIVE) Urine MDMA Screen (NEGATIVE) U Benzodiazepines Scrn (NEGATIVE) U Cocaine Metab Screen (NEGATIVE) U Marijuana (THC) Screen (NEGATIVE) Ethyl Alcohol 140.0 H (<3.0) mg/dL 09/04/19 09/04/19 09/04/19 Range/Units 14:56 15:14 15:15 WBC (4.0-11.0) K/uL RBC (3.80-5.80) M/uL Hgb (11.5-16.5) g/dL Hct (37.0-47.0) % MCV (76-96) fL MCH (27.0-32.0) pg MCHC (31.0-35.0) g/dL RDW (11.0-16.0) % Plt Count (150-500) K/uL MPV (6.0-10.0) fL Neut % (Auto) (45.0-70.0) % Lymph % (Auto) (20.0-40.0) % [place] % (Auto) (3.0-10.0) % Eos % (Auto) (1.0-5.0) % Baso % (Auto) (0.0-0.5) % Neut # (Auto) (2.00-7.50) K/uL Lymph # (Auto) (1.50-4.00) K/uL [place] # (Auto) (0.20-0.80) K/uL Eos # (Auto) (0.04-0.40) K/uL Baso # (Auto) (0.02-0.10) K/uL VBG pH 7.26 L (7.31-7.41) Sodium (136-145) mmol/L Potassium (3.5-5.1) mmol/L Chloride (98-107) mmol/L Carbon Dioxide (21.0-32.0) mmol/L Anion Gap (5.0-15.0) mmol/L BUN (8-26) mg/dL Creatinine (0.55-1.02) mg/dL Est Cr Clr Drug Dosing mL/min Estimated GFR (MDRD) (>60) MLS/MIN BUN/Creatinine Ratio (6-25) Glucose 104 H D (74-100) mg/dL POC Glucose 145 H (74-110) mg/dL Lactic Acid (0.90-1.70) mmol/L Calcium (8.5-10.1) mg/dL Total Bilirubin (0.0-1.0) mg/dL AST (15-37) U/L ALT (12-78) U/L Alkaline Phosphatase (46-116) U/L Troponin I (0.000-0.060) ng/mL Total Protein (6.4-8.2) g/dL Albumin (3.4-5.0) g/dL Globulin (2.2-4.2) g/dL Albumin/Globulin Ratio (0.8-2.0) Lipase (73-393) U/L TSH, Ultra Sensitive (0.358-3.740) uIU/mL Urine Color Urine Appearance (CLEAR) Urine pH (5.0-8.0) Ur Specific Pyrites (1.003-1.030) Urine Protein (NEGATIVE) mg/dL Urine Glucose (UA) (NEGATIVE) mg/dL Urine Ketones (NEGATIVE) mg/dL Urine Occult Blood (NEGATIVE) Urine Nitrite (NEGATIVE) Urine Bilirubin (NEGATIVE) Urine Urobilinogen (0.2-1.0) E.U./dL Ur Leukocyte Esterase (NEGATIVE) Urine RBC /HPF Urine WBC /HPF Ur Squamous Epith Cells /HPF Urine Bacteria /HPF Hyaline Casts /HPF Urine Opiates Screen (NEGATIVE) Ur Oxycodone Screen (NEGATIVE) Urine Methadone Screen (NEGATIVE) Ur Barbiturates Screen (NEGATIVE) Ur Tricyclics Screen (NEGATIVE) Ur Phencyclidine Scrn (NEGATIVE) Ur Amphetamine Screen (NEGATIVE) U Methamphetamines Scrn (NEGATIVE) Urine MDMA Screen (NEGATIVE) U Benzodiazepines Scrn (NEGATIVE) U Cocaine Metab Screen (NEGATIVE) U Marijuana (THC) Screen (NEGATIVE) Ethyl Alcohol (<3.0) mg/dL 09/04/19 09/04/19 09/04/19 Range/Units 15:30 16:00 16:00 WBC (4.0-11.0) K/uL RBC (3.80-5.80) M/uL Hgb (11.5-16.5) g/dL Hct (37.0-47.0) % MCV (76-96) fL MCH (27.0-32.0) pg MCHC (31.0-35.0) g/dL RDW (11.0-16.0) % Plt Count (150-500) K/uL MPV (6.0-10.0) fL Neut % (Auto) (45.0-70.0) % Lymph % (Auto) (20.0-40.0) % [place] % (Auto) (3.0-10.0) % Eos % (Auto) (1.0-5.0) % Baso % (Auto) (0.0-0.5) % Neut # (Auto) (2.00-7.50) K/uL Lymph # (Auto) (1.50-4.00) K/uL [place] # (Auto) (0.20-0.80) K/uL Eos # (Auto) (0.04-0.40) K/uL Baso # (Auto) (0.02-0.10) K/uL VBG pH (7.31-7.41) Sodium (136-145) mmol/L Potassium (3.5-5.1) mmol/L Chloride (98-107) mmol/L Carbon Dioxide (21.0-32.0) mmol/L Anion Gap (5.0-15.0) mmol/L BUN (8-26) mg/dL Creatinine (0.55-1.02) mg/dL Est Cr Clr Drug Dosing mL/min Estimated GFR (MDRD) (>60) MLS/MIN BUN/Creatinine Ratio (6-25) Glucose (74-100) mg/dL POC Glucose (74-110) mg/dL Lactic Acid (0.90-1.70) mmol/L Calcium (8.5-10.1) mg/dL Total Bilirubin (0.0-1.0) mg/dL AST (15-37) U/L ALT (12-78) U/L Alkaline Phosphatase (46-116) U/L Troponin I (0.000-0.060) ng/mL Total Protein (6.4-8.2) g/dL Albumin (3.4-5.0) g/dL Globulin (2.2-4.2) g/dL Albumin/Globulin Ratio (0.8-2.0) Lipase 89 (73-393) U/L TSH, Ultra Sensitive (0.358-3.740) uIU/mL Urine Color Yellow Urine Appearance Clear (CLEAR) Urine pH 5.0 (5.0-8.0) Ur Specific Pyrites >= 1.030 (1.003-1.030) Urine Protein 30 H (NEGATIVE) mg/dL Urine Glucose (UA) Negative (NEGATIVE) mg/dL Urine Ketones 80 H (NEGATIVE) mg/dL Urine Occult Blood Negative (NEGATIVE) Urine Nitrite Negative (NEGATIVE) Urine Bilirubin Negative (NEGATIVE) Urine Urobilinogen 0.2 (0.2-1.0) E.U./dL Ur Leukocyte Esterase Negative (NEGATIVE) Urine RBC Not seen /HPF Urine WBC Not seen /HPF Ur Squamous Epith Cells Moderate /HPF Urine Bacteria Not seen /HPF Hyaline Casts Few /HPF Urine Opiates Screen Positive H (NEGATIVE) Ur Oxycodone Screen Negative (NEGATIVE) Urine Methadone Screen Negative (NEGATIVE) Ur Barbiturates Screen Negative (NEGATIVE) Ur Tricyclics Screen Negative (NEGATIVE) Ur Phencyclidine Scrn Negative (NEGATIVE) Ur Amphetamine Screen Negative (NEGATIVE) U Methamphetamines Scrn Negative (NEGATIVE) Urine MDMA Screen Negative (NEGATIVE) U Benzodiazepines Scrn Negative (NEGATIVE) U Cocaine Metab Screen Negative (NEGATIVE) U Marijuana (THC) Screen Negative (NEGATIVE) Ethyl Alcohol (<3.0) mg/dL Meds: Medications Discontinued Medications Generic Name Dose Route Start Last Admin Trade Name Freq PRN Reason Stop Dose Admin Dextrose/Water 50 ml 09/04/19 15:40 09/04/19 15:53 Dextrose 50% In Water IVPUSH 09/04/19 15:41 50 ml ONETIME ONE Administration Dextrose/Water Confirm 09/04/19 15:48 09/04/19 19:11 Dextrose 50% In Water Administered 09/04/19 15:49 Not Given Dose 50 ml .ROUTE .STK-MED ONE Sodium Chloride 1,000 mls @ 125 mls/hr 09/04/19 12:45 09/04/19 15:05 Normal Saline IV 125 mls/hr ASDIRECTED KELLEY Infusion Pantoprazole Sodium 80 mg/ 100 mls @ 200 mls/hr 09/04/19 13:12 09/04/19 13:36 Sodium Chloride IV 09/04/19 13:41 200 mls/hr .BOLUS ONE Administration Dextrose/Sodium Chloride 1,000 mls @ 500 mls/hr 09/04/19 15:00 09/04/19 15:53 Dextrose 5%-Normal Saline IV 500 mls/hr ASDIRECTED KELLEY Infusion Lactated Ringer's 1,000 mls @ 999 mls/hr 09/04/19 15:41 Ringers, Lactated IV 09/04/19 16:41 BOLUS ONE Lactated Ringer's 1,000 mls @ 999 mls/hr 09/04/19 15:42 Ringers, Lactated IV 09/04/19 16:42 BOLUS ONE Lorazepam 0.5 mg 09/04/19 13:02 09/04/19 15:52 Ativan PO 0.5 mg Q4H PRN Administration Agitation Protocol Lorazepam Confirm 09/04/19 13:20 09/04/19 14:07 Ativan Administered 09/04/19 13:21 Not Given Dose 2 mg .ROUTE .STK-MED ONE Lorazepam 0.5 mg 09/04/19 13:00 09/04/19 13:25 Ativan IVPUSH 09/04/19 13:01 0.5 mg ONETIME ONE Administration Lorazepam Confirm 09/04/19 15:59 09/04/19 19:11 Ativan Administered 09/04/19 16:00 Not Given Dose 0.5 mg .ROUTE .STK-MED ONE Morphine Sulfate 2 mg 09/04/19 13:15 09/04/19 17:00 Morphine IVPUSH 2 mg Q2H PRN Administration Abdominal Pain Morphine Sulfate Confirm 09/04/19 13:28 09/04/19 13:46 Morphine Administered 09/04/19 13:29 Not Given Dose 2 mg .ROUTE .STK-MED ONE Morphine Sulfate Confirm 09/04/19 15:14 09/04/19 16:53 Morphine Administered 09/04/19 15:15 Not Given Dose 2 mg .ROUTE .STK-MED ONE Morphine Sulfate Confirm 09/04/19 17:08 Morphine Administered 09/04/19 17:09 Dose 2 mg .ROUTE .STK-MED ONE Ondansetron HCl 4 mg 09/04/19 12:42 09/04/19 13:00 Zofran IVPUSH 09/04/19 12:43 4 mg ONETIME ONE Administration Ondansetron HCl Confirm 09/04/19 13:06 09/04/19 13:45 Zofran Administered 09/04/19 13:07 Not Given Dose 4 mg .ROUTE .STK-MED ONE Ondansetron HCl 4 mg 09/04/19 14:00 09/04/19 14:11 Zofran IVPUSH 09/04/19 14:01 4 mg ONETIME ONE Administration Ondansetron HCl Confirm 09/04/19 14:18 09/04/19 15:31 Zofran Administered 09/04/19 14:19 Not Given Dose 4 mg .ROUTE .STK-MED ONE Pantoprazole Sodium Confirm 09/04/19 13:28 09/04/19 13:45 Protonix Iv Administered 09/04/19 13:29 Not Given Dose 40 mg .ROUTE .STK-MED ONE Pantoprazole Sodium Confirm 09/04/19 13:44 09/04/19 13:45 Protonix Iv Administered 09/04/19 13:45 Not Given Dose 40 mg .ROUTE .STK-MED ONE Promethazine HCl 25 mg 09/04/19 15:12 09/04/19 15:24 Phenergan IM 09/04/19 15:13 25 mg ONETIME ONE Administration Promethazine HCl Confirm 09/04/19 15:29 09/04/19 15:30 Phenergan Administered 09/04/19 15:30 Not Given Dose 25 mg .ROUTE .STK-MED ONE - Re-Assessments/Exams Free Text/Narrative Re-Assessment/Exam: 09/04/19 15:[address] Hansen with Co2 level 9.4 and Lactic acid 8.52, metabolic acidosis, Creat 0.98 and AST 46, ALT 44, Alk Phos 72. EKG with sinus tachcardia w occasional PVC, WBC 6.1, Hgb 15.9, Plt 111, will transfer to closest accepting facility. Contact [facility] and no available bed, Contact [facility] and consult with Dr Calvillo, order for D50 1 amp, LR IV bolus X 2 Liter. Phenergan 25 mg IM given, MS 2 mg IV given, Ativan 0.5 mg IV and Zofran 4mg IV X 2 given. Pt is starting to be more comfortable. 09/04/19 15:58 CT of abdomen/pelvis with quick read, Diffuse fatty infiltration of liver, no hepatic lesions, gallbladder is moderately distended, no stones no pericholecystic fluid, no biliary duct dilatation. No free air, no free fluid, no dilated loops of bowel, no aortic aneurysm, no adenopathy. Departure - Departure Time of Disposition: 17:00 Disposition: DC/Tfer to Acute Hospital 02 Clinical Impression: Abdominal pain, Vomiting, Hypoglycemia, Alcohol dependence, Metabolic acidosis - Discharge Information Referrals: PCP,None [Primary Care Provider] - Forms: ED Department Discharge, ED Return to Work/School Form Sepsis Event Note - Focused Exam Date Exam was Performed: 09/05/19 Time Exam was Performed: 12:00 - My Orders Last 24 Hours: My Active Orders 09/04/19 12:39 EKG Documentation Completion [RC] ASDIRECTED 09/04/19 12:40 Cardiac Monitoring [RC] .As Directed 09/04/19 14:56 GLUCOSE POC LAB TO COLLECT [POC] Stat - Assessment/Plan Last 24 Hours: My Active Orders 09/04/19 12:39 EKG Documentation Completion [RC] ASDIRECTED 09/04/19 12:40 Cardiac Monitoring [RC] .As Directed 09/04/19 14:56 GLUCOSE POC LAB TO COLLECT [POC] Stat Plan: Reviewed results with patient, will Transfer [facility] ambulance to [facility], with metabolic acidosis, hx of alcoholism and last alcohol intake last night. Lactic acid elevated, Blood sugar 46 and D50 1 amp bolus X 1 given. LR IV X 2 liters, started. Ativan 0.5 mg po and IV given, Morphine 2mg IV, Zofran 4mg IV and Phenergan 25 mg IM. Vomiting improved and pt resting well. Pt states she is interested in going through detox, she reports going through this at home in past and one time in [facility]. Pt remains alert, oriented and in no acute distress. [facility], [place] is the closest, accepting facility.
[2019-09-04] MEDS ORDERED: LORazepam 2 MG/ML SDV ONE (13:20)
[2019-09-04] MEDS: Morphine 2 MG/ML SYRINGE IVPUSH PRN ×3 (13:25→17:00)
[2019-09-04] MEDS ORDERED: Pantoprazole 40 MG Vial ONE ×2 (13:28→13:44)
[2019-09-04] MEDS ORDERED: Morphine 2 MG/ML SYRINGE ONE ×3 (13:28→17:08)
--- NOTE | 2019-09-04 13:34 | CT ---
DATE OF SERVICE: 09/04/2019 CLINICAL DATA: abdominal pain Unenhanced abdomen and pelvic CT: Multislice acquisition through the abdomen and pelvis without IV or oral contrast was performed. Comparison is made to a prior exam dated 08/13/2019. The lung bases are clear. There is diffuse fatty infiltration of the liver. No focal hepatic lesions. The gallbladder is moderately distended. No calcified gallstones. No pericholecystic fluid. No biliary duct dilatation. The spleen appears normal. The pancreas appears normal. The right and left adrenals appear normal. The right left kidneys appear normal. No nephrocalcinosis or nephrolithiasis. No hydronephrosis or hydroureter. There is a small amount of fluid within the bladder. It appears normal. The patient is status post hysterectomy. The appendix appears normal. No free air. No free fluid. No dilated loops of bowel. No adenopathy. No aortic aneurysm. No significant change from the prior study. Thank you for allowing us to participate in the care of your patient. Dictated and Authenticated by: Cam Yun MD 09/04/2019 1:22 PM Central Time ([place]) [facility]
[2019-09-04] MEDS: Pantoprazole 80 MG in Sodium Chloride 0.9% 100 ML IV ONE ×2 (13:36→14:14)
[2019-09-04] MEDS ORDERED: Ondansetron 4 MG/2 ML SDV IVPUSH ONE (14:00)
[2019-09-04] MEDS ORDERED: Dextrose 5%-0.9% NaCl 1,000 ML IV SCH (15:00)
[2019-09-04] MEDS ORDERED: Promethazine 25 MG/ML SDV IM ONE (15:12)
[2019-09-04] MEDS ORDERED: Promethazine 25 MG/ML SDV ONE (15:29)
[2019-09-04] MEDS ORDERED: 50% Dextrose in Water 50 ML Syringe IVPUSH ONE (15:40)
[2019-09-04] MEDS ORDERED: Lactated Ringers 1,000 ML IV ONE ×2 (15:41→15:42)
[2019-09-04] MEDS ORDERED: 50% Dextrose in Water 50 ML Syringe ONE (15:48)
[2019-09-04] MEDS ORDERED: LORazepam 0.5 MG Tab ONE (15:59)
[2019-09-04 19:16] VITALS: BP 146/82; PULSE 141
== END 2019-09-04 17:00 ==
LOC: LB.ED 12:13
DX: R10.9 Unspecified abdominal pain (principal); E87.2 Acidosis; R11.10 Vomiting, unspecified; E16.2 Hypoglycemia, unspecified; F41.9 Anxiety disorder, unspecified; F32.9 Major depressive disorder, single episode, unspecified; G43.909 Migraine, unspecified, not intractable, without status migrainosus; F10.20 Alcohol dependence, uncomplicated; J45.909 Unspecified asthma, uncomplicated; I10 Essential (primary) hypertension; K21.9 Gastro-esophageal reflux disease without esophagitis; Z79.899 Other long term (current) drug therapy; Z88.5 Allergy status to narcotic agent
CPT/HCPCS: 36415; 74176; 80053; 80307; 80320; 81001; 82800; 82947; 82962; 83605; 83690; 84443; 84484; 85025; 93005; 96365; 96372; 96375; 96376; 99285; A0425; A0429; A9270; C9113; J2060; J2270; J2405; J2550; J7030; J7050; G0480

== ENCOUNTER 2019-10-30 06:59 | Emergency (ER) | payer MEDICAID ==
[2019-10-30] MEDS ORDERED: Sodium Chloride 0.9% 10 ML Syringe FLUSH PRN (07:23)
[2019-10-30] MEDS ORDERED: LORazepam 2 MG/ML SDV IVPUSH ONE ×2 (07:23→09:07)
[2019-10-30] MEDS ORDERED: Ondansetron 4 MG/2 ML SDV IVPUSH ONE ×2 (07:24→09:01)
--- NOTE | 2019-10-30 07:26 | EDM.PDOC ---
ED HPI GENERAL MEDICAL PROBLEM - General Chief Complaint: Gastrointestinal Problem Stated Complaint: intoxication Time Seen by Provider: 10/30/19 07:15 Source of Information: Reports: Patient History Limitations: Reports: Intoxication - History of Present Illness INITIAL COMMENTS - FREE TEXT/NARRATIVE: This patient presents to the ED intoxicated requesting assistance with detoxification. She states she has been drinking for a while now and last had a drink at 0200. She was going to go to the liquor store this morning but decided to come here instead. She is requesting hospitalization for detoxification with subsequent treatment. She cannot say how much she has had to drink in the past 24 hours. She is quite tremulous now and is complaining of nausea. She does state that she has had seizures in the past when she has tried to stop drinking. Onset: Today - Related Data Allergies Allergy/AdvReac Type Severity Reaction Status Date / Time hydrocodone Allergy Rash Verified 09/04/19 13:46 oxycodone [Oxycodone] Allergy Hives Verified 09/04/19 13:46 Home Meds: Home Meds Gabapentin [Gralise] 300 mg PO TID 05/10/13 [History] busPIRone HCl [busPIRone] 15 mg PO Q6HR 05/10/13 [History] SUMAtriptan Succinate [Imitrex] 50 mg PO BID PRN 12/21/13 [History] Albuterol [Ventolin HFA] 2 sprays IN DAILY PRN 08/11/19 [History] Baclofen 10 mg PO TID 08/11/19 [History] Fluticasone Propionate [Flovent] 2 spray INH DAILY PRN 08/11/19 [History] Multivitamin [Daily Chente] 1 tab PO DAILY 08/11/19 [History] traZODone HCl [Trazodone HCl] 100 mg PO DAILY 08/11/19 [History] Ondansetron [Zofran Odt] 1 tab SL TID 09/04/19 [History] Pantoprazole 1 tab PO DAILY 09/04/19 [History] Past Medical History HEENT 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: Sinusitis Cardiovascular 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: Hypertension Respiratory 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: Asthma Gastrointestinal 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: GERD, Pancreatitis, Other (See Below) Other Gastrointestinal History: hx ulcers several years ago 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 ELECTRICAL SYSTEMS DRAFTER History: hysterectomy - cysts Musculoskeletal 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: Arthritis, Back Pain, Chronic Neurological 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: Migraines Other Neuro History: when detoxing Psychiatric 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: Addiction, Anxiety, Depression Dermatologic 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: Eczema - Infectious Disease History Infectious Disease 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: Chicken Pox Social & Family History - Family History Family Medical History: Noncontributory - Caffeine Use Caffeine Use: Reports: Coffee - Living Situation & Occupation Living situation: Reports: Occupation: Unemployed ED ROS GENERAL - Review of Systems Review Of Systems: See Below Constitutional: Denies: Fever, Chills HEENT: Denies: Ear Pain, Eye Pain Respiratory: Denies: Shortness of Breath, Cough Cardiovascular: Reports: Blood Pressure Problem, Lightheadedness. Denies: Chest Pain, Dyspnea on Exertion, Syncope GI/Abdominal: Reports: Decreased Appetite, Nausea. Denies: Abdominal Pain, Diarrhea, Distension, Vomiting Musculoskeletal: Reports: No Symptoms Skin: Reports: No Symptoms Neurological: Reports: Headache, Tremors Psychiatric: Reports: Anxiety, Cravings ED EXAM, GENERAL - Physical Exam Exam: See Below Exam Limited By: Intoxication General Appearance: Alert, Moderate Distress Eye Exam: Bilateral Eye: Nystagmus Ears: Normal External Exam Nose: Normal Inspection Throat/Mouth: Normal Inspection Head: Atraumatic, Normocephalic Neck: Normal Inspection, Non-Tender, Full Range of Motion Respiratory/Chest: No Respiratory Distress, Lungs Clear, Normal Breath Sounds, No Accessory Muscle Use Cardiovascular: Tachycardia Back Exam: Normal Inspection Extremities: Normal Inspection, Normal Capillary Refill Neurological: Alert, Oriented, No Motor/Sensory Deficits Psychiatric: Anxious, Flat Affect, Tearful Skin Exam: Warm, Dry Course - Vital Signs Last Recorded V/S: Last Vital Signs Temp 37.4 C 10/30/19 08:22 Pulse 111 H 10/30/19 08:22 Resp 16 10/30/19 08:22 BP 124/85 10/30/19 08:22 Pulse Ox 99 10/30/19 08:22 - Orders/Labs/Meds Orders: Active Orders 24 hr Category Date Time Status DRUG SCREEN, URINE [URCHEM] Stat Lab 10/30/19 07:35 Ordered URINALYSIS W/MICROSCOPIC [UA W/MICROSCOPIC] [URIN] Stat Lab 10/30/19 07:34 Ordered MVI, Adult with Vitamin K [Infuvite Adult] 10 ml Med 10/30/19 07:30 Active Thiamine [Vitamin B-1] 100 mg Folic Acid 1 mg Magnesium Sulfate [Magnesium Sulfate 50%] 3 gm Sodium Chloride 0.9% [Normal Saline] 1,000 ml IV ASDIRECTED Sodium Chloride 0.9% [Normal Saline] 1,000 ml Med 10/30/19 07:30 Active IV ASDIRECTED Sodium Chloride 0.9% [Saline Flush] Med 10/30/19 07:23 Active 10 ml FLUSH ASDIRECTED PRN Saline Lock Insert [OM.PC] Stat Oth 10/30/19 07:23 Ordered Medication Orders Multivitamins/Minerals 10 ml/Thiamine HCl 100 mg/ Folic Acid 1 mg/ Magnesium Sulfate 3 gm/ Sodium Chloride 1,017.2 mls @ 250 mls/hr IV ASDIRECTED KELLEY Sodium Chloride (Normal Saline) 1,000 mls @ 1,000 mls/hr IV ASDIRECTED KELLEY Last Admin: 10/30/19 07:30 Dose: 1,000 mls/hr Sodium Chloride (Saline Flush) 10 ml FLUSH ASDIRECTED PRN PRN Reason: Keep Vein Open Labs: Laboratory Tests 10/30/19 10/30/19 10/30/19 Range/Units 07:45 07:45 07:45 WBC 2.8 L D (4.0-11.0) K/uL RBC 4.95 (3.80-5.80) M/uL Hgb 13.8 (11.5-16.5) g/dL Hct 41.7 (37.0-47.0) % MCV 84 (76-96) fL MCH 27.9 (27.0-32.0) pg MCHC 33.1 (31.0-35.0) g/dL RDW 14.9 (11.0-16.0) % Plt Count 180 D (150-500) K/uL MPV 9.8 (6.0-10.0) fL Neut % (Auto) 36.3 L (45.0-70.0) % Lymph % (Auto) 41.7 H (20.0-40.0) % Bennett % (Auto) 19.1 H (3.0-10.0) % Eos % (Auto) 2.2 (1.0-5.0) % Baso % (Auto) 0.7 H (0.0-0.5) % Neut # (Auto) 1.01 L (2.00-7.50) K/uL Lymph # (Auto) 1.16 L (1.50-4.00) K/uL Bennett # (Auto) 0.53 (0.20-0.80) K/uL Eos # (Auto) 0.06 (0.04-0.40) K/uL Baso # (Auto) 0.02 (0.02-0.10) K/uL Sodium 143 (136-145) mmol/L Potassium 4.0 (3.5-5.1) mmol/L Chloride 105 (98-107) mmol/L Carbon Dioxide 19.1 L D (21.0-32.0) mmol/L Anion Gap 22.9 H (5.0-15.0) mmol/L BUN 15 (8-26) mg/dL Creatinine 0.77 (0.55-1.02) mg/dL Est Cr Clr Drug Dosing TNP Estimated GFR (MDRD) > 60 (>60) MLS/MIN BUN/Creatinine Ratio 19.5 (6-25) Glucose 103 H (74-100) mg/dL Calcium 9.1 (8.5-10.1) mg/dL Total Bilirubin 0.9 (0.0-1.0) mg/dL AST 105 H (15-37) U/L ALT 77 (12-78) U/L Alkaline Phosphatase 71 (46-116) U/L Total Protein 8.1 (6.4-8.2) g/dL Albumin 4.2 (3.4-5.0) g/dL Globulin 3.9 (2.2-4.2) g/dL Albumin/Globulin Ratio 1.1 (0.8-2.0) Ethyl Alcohol 158.0 H (<3.0) mg/dL Meds: Medications Generic Name Dose Route Start Last Admin Trade Name Freq PRN Reason Stop Dose Admin Multivitamins/Minerals 10 ml/ 1,017.2 mls @ 250 mls/hr 10/30/19 07:30 Thiamine HCl 100 mg/ Folic IV Acid 1 mg/ Magnesium Sulfate 3 ASDIRECTED KELLEY gm/ Sodium Chloride Sodium Chloride 1,000 mls @ 1,000 mls/hr 10/30/19 07:30 10/30/19 07:30 Normal Saline IV 1,000 mls/hr ASDIRECTED KELLEY Administration Sodium Chloride 10 ml 10/30/19 07:23 Saline Flush FLUSH ASDIRECTED PRN Keep Vein Open Discontinued Medications Generic Name Dose Route Start Last Admin Trade Name Zandra PRN Reason Stop Dose Admin Lorazepam 2 mg 10/30/19 07:23 10/30/19 07:42 Ativan IVPUSH 10/30/19 07:24 2 mg ONETIME ONE Administration Lorazepam Confirm 10/30/19 07:39 10/30/19 08:31 Ativan Administered 10/30/19 07:40 Not Given Dose 2 mg .ROUTE .STK-MED ONE Ondansetron HCl 4 mg 10/30/19 07:24 10/30/19 07:44 Zofran IVPUSH 10/30/19 07:25 4 mg ONETIME ONE Administration Ondansetron HCl Confirm 10/30/19 07:38 10/30/19 08:31 Zofran Administered 10/30/19 07:39 Not Given Dose 4 mg .ROUTE .STK-MED ONE - Re-Assessments/Exams Free Text/Narrative Re-Assessment/Exam: 10/30/19 08:41 This patient presents to the ED requesting assistance with detoxification from alcohol stating she is ready to go to treatment. She does have a history of seizures with detoxification. Her electrolytes are within normal limits and her blood alcohol level is 158. At this time I believe she does require a medically monitored detoxification; however, does not require an inpatient hospitalization. I contacted several facilities in an attempt to find appropriate placement for this patient. She was accepted for admission to the inpatient unit at [facility] by Dr. Iniguez, the hospitalist. Arrangements were made for her to be transported to their facility by [facility] ground ambulance. The patient was stable at the time of transfer. 10/30/19 08:45 10/30/19 08:50 10/30/19 08:56 Departure - Departure Time of Disposition: 09:30 Disposition: DC/Tfer to Hospice - Home 50 Condition: Poor Clinical Impression: Acute alcohol intoxication - Discharge Information *PRESCRIPTION DRUG MONITORING PROGRAM REVIEWED*: No Referrals: PCP,None [Primary Care Provider] - Forms: ED Department Discharge, Interfacility Transfer EMTALA Sepsis Event Note - Focused Exam Vital Signs: Vital Signs Temp Pulse Resp BP Pulse Ox 10/30/19 08:22 37.4 C 111 H 16 124/85 99 10/30/19 08:16 37.3 C 129 H 18 142/97 H 99 Date Exam was Performed: 10/30/19 Time Exam was Performed: 08:41 - My Orders Last 24 Hours: My Active Orders 10/30/19 07:23 Sodium Chloride 0.9% [Saline Flush] 10 ml FLUSH ASDIRECTED PRN Saline Lock Insert [OM.PC] Stat 10/30/19 07:30 MVI, Adult with Vitamin K [Infuvite Adult] 10 ml Thiamine [Vitamin B-1] 100 mg Folic Acid 1 mg Magnesium Sulfate [Magnesium Sulfate 50%] 3 gm Sodium Chloride 0.9% [Normal Saline] 1,000 ml IV ASDIRECTED Sodium Chloride 0.9% [Normal Saline] 1,000 ml IV ASDIRECTED 10/30/19 07:34 URINALYSIS W/MICROSCOPIC [UA W/MICROSCOPIC] [URIN] Stat 10/30/19 07:35 DRUG SCREEN, URINE [URCHEM] Stat - Assessment/Plan Last 24 Hours: My Active Orders 10/30/19 07:23 Sodium Chloride 0.9% [Saline Flush] 10 ml FLUSH ASDIRECTED PRN Saline Lock Insert [OM.PC] Stat 10/30/19 07:30 MVI, Adult with Vitamin K [Infuvite Adult] 10 ml Thiamine [Vitamin B-1] 100 mg Folic Acid 1 mg Magnesium Sulfate [Magnesium Sulfate 50%] 3 gm Sodium Chloride 0.9% [Normal Saline] 1,000 ml IV ASDIRECTED Sodium Chloride 0.9% [Normal Saline] 1,000 ml IV ASDIRECTED 10/30/19 07:34 URINALYSIS W/MICROSCOPIC [UA W/MICROSCOPIC] [URIN] Stat 10/30/19 07:35 DRUG SCREEN, URINE [URCHEM] Stat
[2019-10-30] MEDS ORDERED: Sodium Chloride 0.9% 1,000 ML IV SCH (07:30)
[2019-10-30] MEDS ORDERED: MVI, Adult with Vitamin K 10 ML, Thiamine 100 MG, Folic Acid 1 MG, Magnesium Sulfate 3 ... IV SCH ×5 (07:30)
[2019-10-30] MEDS ORDERED: Ondansetron 4 MG/2 ML SDV ONE ×2 (07:38→09:00)
[2019-10-30] MEDS ORDERED: LORazepam 2 MG/ML SDV ONE ×2 (07:39→09:11)
[2019-10-30 08:26] VITALS: BP 124/85; PULSE 111
== END 2019-10-30 10:11 | disposition hospice, home (50) ==
LOC: LB.ED 06:59
DX: F10.129 Alcohol abuse with intoxication, unspecified (principal); I10 Essential (primary) hypertension; J45.909 Unspecified asthma, uncomplicated; K21.9 Gastro-esophageal reflux disease without esophagitis; M19.90 Unspecified osteoarthritis, unspecified site; F41.9 Anxiety disorder, unspecified; F32.9 Major depressive disorder, single episode, unspecified; Z88.5 Allergy status to narcotic agent; Z79.899 Other long term (current) drug therapy
CPT/HCPCS: 36415; 80053; 80307; 85025; 96361; 96365; 96375; 96376; 99284; J2060; J2405; J3411; J3475; J7030; J3490

== ENCOUNTER 2020-05-19 09:45 | Emergency (ER) | payer MEDICAID ==
[2020-05-19] MEDS ORDERED: Ondansetron 4 MG/2 ML SDV IVPUSH ONE (11:55)
[2020-05-19] MEDS ORDERED: Sodium Chloride 0.9% 500 ML IV ONE (11:56)
[2020-05-19] MEDS ORDERED: Ondansetron 4 MG/2 ML SDV ONE (12:09)
[2020-05-19] MEDS: Promethazine 12.5 MG in Sodium Chloride 0.9% 50 ML IV PRN ×2 (13:08→14:58)
[2020-05-19] MEDS ORDERED: Promethazine 25 MG/ML SDV ONE ×2 (13:16→15:04)
[2020-05-19] MEDS ORDERED: 50% Dextrose in Water 50 ML Syringe IVPUSH ONE (13:50)
[2020-05-19] MEDS ORDERED: Thiamine 100 MG in Sodium Chloride 0.9% 100 ML IV ONE (14:37)
[2020-05-19] MEDS ORDERED: Lactated Ringers 1,000 ML IV SCH (15:00)
--- NOTE | 2020-05-19 15:17 | EDM.PDOC ---
ED HPI GENERAL MEDICAL PROBLEM - General Chief Complaint: General Stated Complaint: ethoh abuse Time Seen by Provider: 05/19/20 10:53 Source of Information: Reports: Patient, RN History Limitations: Reports: Intoxication - History of Present Illness INITIAL COMMENTS - FREE TEXT/NARRATIVE: Patient has a long history of ETOH abuse. States she has been on a binge x 2 months and drank a liter of Vodka this AM. PMH pancreatitis. C/O abdominal pain, nausea. Denies any SOB,CP, fever, cough, chills. SHe would like to detox and find treatment with home health care social worker assistance. Location: Reports: Abdomen Quality: Reports: Ache, Sharp Severity: Moderate Improves with: Reports: None Worsens with: Reports: None Associated Symptoms: Reports: Nausea/Vomiting - Related Data Allergies Allergy/AdvReac Type Severity Reaction Status Date / Time hydrocodone Allergy Rash Verified 09/04/19 13:46 oxycodone [Oxycodone] Allergy Hives Verified 09/04/19 13:46 Home Meds: Home Meds Gabapentin [Gralise] 300 mg PO TID 05/10/13 [History] busPIRone HCl [busPIRone] 15 mg PO Q6HR 05/10/13 [History] SUMAtriptan succinate [Imitrex] 50 mg PO BID PRN 12/21/13 [History] Albuterol [Ventolin HFA] 2 sprays IN DAILY PRN 08/11/19 [History] Baclofen 10 mg PO TID 08/11/19 [History] Fluticasone Propionate [Flovent] 2 spray INH DAILY PRN 08/11/19 [History] Multivitamin [Daily Chente] 1 tab PO DAILY 08/11/19 [History] traZODone HCl [Trazodone HCl] 100 mg PO DAILY 08/11/19 [History] Ondansetron [Zofran Odt] 1 tab SL TID 09/04/19 [History] Pantoprazole 1 tab PO DAILY 09/04/19 [History] Past Medical History HEENT 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: Sinusitis Cardiovascular 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: Hypertension Respiratory 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: Asthma Gastrointestinal 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: GERD, Pancreatitis, Other (See Below) Other Gastrointestinal History: hx ulcers several years ago 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 Musculoskeletal 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: Arthritis, Back Pain, Chronic Neurological 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: Migraines Other Neuro History: when detoxing Psychiatric 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: Addiction, Anxiety, Depression Other Psychiatric History: alcohol abuse and addiction Dermatologic 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: Eczema - Infectious Disease History Infectious Disease 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: Chicken Pox Social & Family History - Family History Family Medical History: Noncontributory - Tobacco Use Smoking Status *Q: Current Some Day Smoker Years of Tobacco use: 25 Packs/Tins Daily: 0.5 - Caffeine Use Caffeine Use: Reports: Coffee, Soda - Alcohol Use Days Per Week of Alcohol Use: 7 Number of Drinks Per Day: 12 Total Drinks Per Week: 84 Date of Last Drink: 05/19/20 Time of Last Drink: 10:00 - Recreational Drug Use Recreational Drug Use: Yes Drug Use in Last 12 Months: Yes Recreational Drug Type: Reports: Marijuana/Hashish Recreational Drug Use Frequency: Monthly - Living Situation & Occupation Living situation: Reports: Occupation: Unemployed ED ROS GENERAL - Review of Systems Review Of Systems: See Below Constitutional: Reports: No Symptoms HEENT: Reports: No Symptoms Respiratory: Reports: No Symptoms Cardiovascular: Reports: No Symptoms Endocrine: Reports: No Symptoms GI/Abdominal: Reports: Abdominal Pain, Nausea, Vomiting. Denies: Diarrhea : Reports: No Symptoms Musculoskeletal: Reports: No Symptoms Skin: Reports: No Symptoms Neurological: Reports: Other (ETOH intoxication) Psychiatric: Denies: Hallucinations, Homicidal Ideation, Suicidal Ideation Hematologic/Lymphatic: Reports: Easy Bruising (states all her life) ED EXAM, GENERAL - Physical Exam Exam: See Below Exam Limited By: Intoxication General Appearance: Alert, Moderate Distress Eye Exam: Bilateral Eye: PERRL Ears: Normal External Exam Nose: Normal Inspection Throat/Mouth: Normal Inspection, Normal Lips, Normal Gums, Normal Oropharynx, Normal Voice Head: Atraumatic Neck: Normal Inspection, Non-Tender, Full Range of Motion Respiratory/Chest: No Respiratory Distress, Lungs Clear, Normal Breath Sounds Cardiovascular: Normal Peripheral Pulses, No Edema, No JVD, No Murmur, Tachycardia Peripheral Pulses: 3+: Radial (L), Radial (R), Posterior Tibial (L), Posterior Tibial (R) GI/Abdominal: Normal Bowel Sounds, No Organomegaly, Tender (Female) Exam: Deferred Rectal (Female) Exam: Deferred Back Exam: Normal Inspection, Full Range of Motion. No: CVA Tenderness (R), CVA Tenderness (L) Extremities: Normal Inspection, Normal Range of Motion, No Pedal Edema, Normal Capillary Refill Neurological: Alert, Oriented, Other (ETOH intoxication) Psychiatric: Normal Affect Skin Exam: Warm, Dry, Intact Lymphatic: No Adenopathy Course - Vital Signs Last Recorded V/S: Last Vital Signs Temp 98.7 F 05/19/20 16:23 Pulse 117 H 05/19/20 16:23 Resp 28 H 05/19/20 16:23 BP 120/58 L 05/19/20 16:23 Pulse Ox 90 L 05/19/20 16:23 - Orders/Labs/Meds Orders: Active Orders 24 hr Category Date Time Status Abdomen Pelvis wo Cont [CT] Stat Exams 05/19/20 11:42 Taken Labs: Laboratory Tests 05/19/20 05/19/20 05/19/20 Range/Units 11:15 11:20 11:37 WBC Cancelled Corrected WBC Cancelled RBC Cancelled Hgb Cancelled Hct Cancelled MCV Cancelled MCH Cancelled MCHC Cancelled RDW Cancelled Plt Count Cancelled MPV Cancelled Neut % (Auto) Cancelled Lymph % (Auto) Cancelled [place] % (Auto) Cancelled Eos % (Auto) Cancelled Baso % (Auto) Cancelled Neut # (Auto) Cancelled Lymph # (Auto) Cancelled [place] # (Auto) Cancelled Eos # (Auto) Cancelled Baso # (Auto) Cancelled Add Manual Diff Cancelled Neutrophils % (Manual) Cancelled Band Neutrophils % Cancelled Lymphocytes % (Manual) Cancelled Reactive Lymphs % Cancelled Atypical Lymphs % Cancelled Monocytes % (Manual) Cancelled Eosinophils % (Manual) Cancelled Basophils % (Manual) Cancelled Metamyelocytes % Cancelled Myelocytes % Cancelled Promyelocytes % Cancelled Blast Cells % Cancelled Nucleated RBCs Cancelled Differential Comment Cancelled Hypersegmented Neuts Cancelled Vacuolated Monocytes Cancelled Smudge Cells Cancelled Toxic Granulation Cancelled Megakaryocytic Frags Cancelled WBC Morphology Comment Cancelled Platelet Estimate Cancelled Hypogranular Platelets Cancelled Platelet Agranulation Cancelled Clumped Platelets Cancelled Giant Platelets Cancelled Platelet Satelliting Cancelled Bizarre Platelets Cancelled Plt Morphology Comment Cancelled Polychromasia Cancelled Hypochromasia Cancelled Poikilocytosis Cancelled Basophilic Stippling Cancelled Anisocytosis Cancelled Microcytosis Cancelled Macrocytosis Cancelled Spherocytes Cancelled Target Cells Cancelled Tear Drop Cells Cancelled Ovalocytes Cancelled Stomatocytes Cancelled Helmet Cells Cancelled [place] Bodies Cancelled Barker Cells Cancelled Elliptocytes Cancelled Acanthocytes (Spur) Cancelled Rouleaux Cancelled Schistocytes Cancelled RBC Morph Comment Cancelled ABG pH (7.35-7.45) ABG pCO2 (35-45) mmHg ABG pO2 (80-105) mmHg ABG HCO3 (22-26) mmol/L ABG O2 Saturation (95-98) % ABG Base Excess (-2-2) Colin Test O2 Delivery Device Sodium Cancelled Potassium Cancelled Chloride Cancelled Carbon Dioxide Cancelled Anion Gap Cancelled BUN Cancelled Creatinine Cancelled Est Cr Clr Drug Dosing Cancelled Estimated GFR (MDRD) Cancelled BUN/Creatinine Ratio Cancelled Glucose Cancelled Lactic Acid (0.4-2.0) mmol/L Calcium Cancelled Total Bilirubin Cancelled AST Cancelled ALT Cancelled Alkaline Phosphatase Cancelled Total Protein Cancelled Albumin Cancelled Globulin Cancelled Albumin/Globulin Ratio Cancelled Triglycerides (30-150) mg/dL Lipase Cancelled Urine Color Urine Appearance (CLEAR) Urine pH (5.0-8.0) Ur Specific [place] (1.003-1.030) Urine Protein (NEGATIVE) mg/dL Urine Glucose (UA) (NEGATIVE) mg/dL Urine Ketones (NEGATIVE) mg/dL Urine Occult Blood (NEGATIVE) Urine Nitrite (NEGATIVE) Urine Bilirubin (NEGATIVE) Urine Urobilinogen (0.2-1.0) E.U./dL Ur Leukocyte Esterase (NEGATIVE) U Hyaline Cast (Auto) /HPF Urine RBC /HPF Urine WBC Ur Epithelial Cells /HPF Amorphous Sediment /HPF Urine Opiates Screen Negative (NEGATIVE) Ur Oxycodone Screen Negative (NEGATIVE) Urine Methadone Screen Negative (NEGATIVE) Ur Barbiturates Screen Negative (NEGATIVE) Ur Tricyclics Screen Negative (NEGATIVE) Ur Phencyclidine Scrn Negative (NEGATIVE) Ur Amphetamine Screen Negative (NEGATIVE) U Methamphetamines Scrn Negative (NEGATIVE) Urine MDMA Screen Negative (NEGATIVE) U Benzodiazepines Scrn Negative (NEGATIVE) U Cocaine Metab Screen Negative (NEGATIVE) U Marijuana (THC) Screen Negative (NEGATIVE) Ethyl Alcohol Cancelled SARS CoV-2 RNA Rapid ARIN 05/19/20 05/19/20 05/19/20 Range/Units 12:00 12:33 12:45 WBC Corrected WBC RBC Hgb Hct MCV MCH MCHC RDW Plt Count MPV Neut % (Auto) Lymph % (Auto) [place] % (Auto) Eos % (Auto) Baso % (Auto) Neut # (Auto) Lymph # (Auto) [place] # (Auto) Eos # (Auto) Baso # (Auto) Add Manual Diff Neutrophils % (Manual) Band Neutrophils % Lymphocytes % (Manual) Reactive Lymphs % Atypical Lymphs % Monocytes % (Manual) Eosinophils % (Manual) Basophils % (Manual) Metamyelocytes % Myelocytes % Promyelocytes % Blast Cells % Nucleated RBCs Differential Comment Hypersegmented Neuts Vacuolated Monocytes Smudge Cells Toxic Granulation Megakaryocytic Frags WBC Morphology Comment Platelet Estimate Hypogranular Platelets Platelet Agranulation Clumped Platelets Giant Platelets Platelet Satelliting Bizarre Platelets Plt Morphology Comment Polychromasia Hypochromasia Poikilocytosis Basophilic Stippling Anisocytosis Microcytosis Macrocytosis Spherocytes Target Cells Tear Drop Cells Ovalocytes Stomatocytes Helmet Cells [place] Bodies Gayatri Cells Elliptocytes Acanthocytes (Spur) Rouleaux Schistocytes RBC Morph Comment ABG pH 7.31 L (7.35-7.45) ABG pCO2 28.1 L (35-45) mmHg ABG pO2 83 (80-105) mmHg ABG HCO3 14.1 L (22-26) mmol/L ABG O2 Saturation 95 (95-98) % ABG Base Excess -12 L (-2-2) Colin Test Positive O2 Delivery Device Room air Sodium Potassium Chloride Carbon Dioxide Anion Gap BUN Creatinine Est Cr Clr Drug Dosing Estimated GFR (MDRD) BUN/Creatinine Ratio Glucose Lactic Acid (0.4-2.0) mmol/L Calcium Total Bilirubin AST ALT Alkaline Phosphatase Total Protein Albumin Globulin Albumin/Globulin Ratio Triglycerides (30-150) mg/dL Lipase Urine Color Yellow Urine Appearance Slightly cloudy (CLEAR) Urine pH 5.5 (5.0-8.0) Ur Specific [place] >= 1.030 (1.003-1.030) Urine Protein >=300 H (NEGATIVE) mg/dL Urine Glucose (UA) Negative (NEGATIVE) mg/dL Urine Ketones 40 H (NEGATIVE) mg/dL Urine Occult Blood Trace-lysed H (NEGATIVE) Urine Nitrite Negative (NEGATIVE) Urine Bilirubin Moderate H (NEGATIVE) Urine Urobilinogen 0.2 (0.2-1.0) E.U./dL Ur Leukocyte Esterase Negative (NEGATIVE) U Hyaline Cast (Auto) Rare /HPF Urine RBC 0-5 H /HPF Urine WBC Not Reportable Ur Epithelial Cells Few /HPF Amorphous Sediment Moderate /HPF Urine Opiates Screen (NEGATIVE) Ur Oxycodone Screen (NEGATIVE) Urine Methadone Screen (NEGATIVE) Ur Barbiturates Screen (NEGATIVE) Ur Tricyclics Screen (NEGATIVE) Ur Phencyclidine Scrn (NEGATIVE) Ur Amphetamine Screen (NEGATIVE) U Methamphetamines Scrn (NEGATIVE) Urine MDMA Screen (NEGATIVE) U Benzodiazepines Scrn (NEGATIVE) U Cocaine Metab Screen (NEGATIVE) U Marijuana (THC) Screen (NEGATIVE) Ethyl Alcohol SARS CoV-2 RNA Rapid ARIN Negative 05/19/20 05/19/20 05/19/20 Range/Units 12:56 12:56 14:40 WBC 4.8 D Corrected WBC RBC 5.43 Hgb 15.6 Hct 47.1 H MCV 87 MCH 28.7 MCHC 33.1 RDW 15.4 Plt Count 172 MPV 9.5 Neut % (Auto) 53.9 Lymph % (Auto) 36.9 [place] % (Auto) 9.0 Eos % (Auto) 0.0 L Baso % (Auto) 0.2 Neut # (Auto) 2.57 Lymph # (Auto) 1.76 [place] # (Auto) 0.43 Eos # (Auto) 0.00 L Baso # (Auto) 0.01 L Add Manual Diff Neutrophils % (Manual) Band Neutrophils % Lymphocytes % (Manual) Reactive Lymphs % Atypical Lymphs % Monocytes % (Manual) Eosinophils % (Manual) Basophils % (Manual) Metamyelocytes % Myelocytes % Promyelocytes % Blast Cells % Nucleated RBCs Differential Comment Hypersegmented Neuts Vacuolated Monocytes Smudge Cells Toxic Granulation Megakaryocytic Frags WBC Morphology Comment Platelet Estimate Hypogranular Platelets Platelet Agranulation Clumped Platelets Giant Platelets Platelet Satelliting Bizarre Platelets Plt Morphology Comment Polychromasia Hypochromasia Poikilocytosis Basophilic Stippling Anisocytosis Microcytosis Macrocytosis Spherocytes Target Cells Tear Drop Cells Ovalocytes Stomatocytes Helmet Cells [place] Bodies Gayatri Cells Elliptocytes Acanthocytes (Spur) Rouleaux Schistocytes RBC Morph Comment ABG pH (7.35-7.45) ABG pCO2 (35-45) mmHg ABG pO2 (80-105) mmHg ABG HCO3 (22-26) mmol/L ABG O2 Saturation (95-98) % ABG Base Excess (-2-2) Colin Test O2 Delivery Device Sodium 135 L Potassium 5.0 D Chloride 96 L Carbon Dioxide 13.8 L* D Anion Gap 30.2 H BUN 20 D Creatinine 0.99 D Est Cr Clr Drug Dosing 67.58 Estimated GFR (MDRD) 60 BUN/Creatinine Ratio 20.2 Glucose 65 L D Lactic Acid 3.6 H (0.4-2.0) mmol/L Calcium 8.1 L Total Bilirubin 0.7 AST 209 H ALT 115 H Alkaline Phosphatase 77 Total Protein 8.6 H Albumin 4.2 Globulin 4.4 H Albumin/Globulin Ratio 1.0 Triglycerides (30-150) mg/dL Lipase 668 H* D Urine Color Urine Appearance (CLEAR) Urine pH (5.0-8.0) Ur Specific [place] (1.003-1.030) Urine Protein (NEGATIVE) mg/dL Urine Glucose (UA) (NEGATIVE) mg/dL Urine Ketones (NEGATIVE) mg/dL Urine Occult Blood (NEGATIVE) Urine Nitrite (NEGATIVE) Urine Bilirubin (NEGATIVE) Urine Urobilinogen (0.2-1.0) E.U./dL Ur Leukocyte Esterase (NEGATIVE) U Hyaline Cast (Auto) /HPF Urine RBC /HPF Urine WBC Ur Epithelial Cells /HPF Amorphous Sediment /HPF Urine Opiates Screen (NEGATIVE) Ur Oxycodone Screen (NEGATIVE) Urine Methadone Screen (NEGATIVE) Ur Barbiturates Screen (NEGATIVE) Ur Tricyclics Screen (NEGATIVE) Ur Phencyclidine Scrn (NEGATIVE) Ur Amphetamine Screen (NEGATIVE) U Methamphetamines Scrn (NEGATIVE) Urine MDMA Screen (NEGATIVE) U Benzodiazepines Scrn (NEGATIVE) U Cocaine Metab Screen (NEGATIVE) U Marijuana (THC) Screen (NEGATIVE) Ethyl Alcohol 358.0 H* SARS CoV-2 RNA Rapid ARIN 05/19/20 Range/Units 14:48 WBC Corrected WBC RBC Hgb Hct MCV MCH MCHC RDW Plt Count MPV Neut % (Auto) Lymph % (Auto) [place] % (Auto) Eos % (Auto) Baso % (Auto) Neut # (Auto) Lymph # (Auto) [place] # (Auto) Eos # (Auto) Baso # (Auto) Add Manual Diff Neutrophils % (Manual) Band Neutrophils % Lymphocytes % (Manual) Reactive Lymphs % Atypical Lymphs % Monocytes % (Manual) Eosinophils % (Manual) Basophils % (Manual) Metamyelocytes % Myelocytes % Promyelocytes % Blast Cells % Nucleated RBCs Differential Comment Hypersegmented Neuts Vacuolated Monocytes Smudge Cells Toxic Granulation Megakaryocytic Frags WBC Morphology Comment Platelet Estimate Hypogranular Platelets Platelet Agranulation Clumped Platelets Giant Platelets Platelet Satelliting Bizarre Platelets Plt Morphology Comment Polychromasia Hypochromasia Poikilocytosis Basophilic Stippling Anisocytosis Microcytosis Macrocytosis Spherocytes Target Cells Tear Drop Cells Ovalocytes Stomatocytes Helmet Cells [place] Bodies Gayatri Cells Elliptocytes Acanthocytes (Spur) Rouleaux Schistocytes RBC Morph Comment ABG pH (7.35-7.45) ABG pCO2 (35-45) mmHg ABG pO2 (80-105) mmHg ABG HCO3 (22-26) mmol/L ABG O2 Saturation (95-98) % ABG Base Excess (-2-2) Colin Test O2 Delivery Device Sodium Potassium Chloride Carbon Dioxide Anion Gap BUN Creatinine Est Cr Clr Drug Dosing Estimated GFR (MDRD) BUN/Creatinine Ratio Glucose Lactic Acid (0.4-2.0) mmol/L Calcium Total Bilirubin AST ALT Alkaline Phosphatase Total Protein Albumin Globulin Albumin/Globulin Ratio Triglycerides 199 H (30-150) mg/dL Lipase Urine Color Urine Appearance (CLEAR) Urine pH (5.0-8.0) Ur Specific [place] (1.003-1.030) Urine Protein (NEGATIVE) mg/dL Urine Glucose (UA) (NEGATIVE) mg/dL Urine Ketones (NEGATIVE) mg/dL Urine Occult Blood (NEGATIVE) Urine Nitrite (NEGATIVE) Urine Bilirubin (NEGATIVE) Urine Urobilinogen (0.2-1.0) E.U./dL Ur Leukocyte Esterase (NEGATIVE) U Hyaline Cast (Auto) /HPF Urine RBC /HPF Urine WBC Ur Epithelial Cells /HPF Amorphous Sediment /HPF Urine Opiates Screen (NEGATIVE) Ur Oxycodone Screen (NEGATIVE) Urine Methadone Screen (NEGATIVE) Ur Barbiturates Screen (NEGATIVE) Ur Tricyclics Screen (NEGATIVE) Ur Phencyclidine Scrn (NEGATIVE) Ur Amphetamine Screen (NEGATIVE) U Methamphetamines Scrn (NEGATIVE) Urine MDMA Screen (NEGATIVE) U Benzodiazepines Scrn (NEGATIVE) U Cocaine Metab Screen (NEGATIVE) U Marijuana (THC) Screen (NEGATIVE) Ethyl Alcohol SARS CoV-2 RNA Rapid ARIN Meds: Medications Discontinued Medications Generic Name Dose Route Start Last Admin Trade Name Freq PRN Reason Stop Dose Admin Dextrose/Water 50 ml 05/19/20 13:50 05/19/20 13:57 Dextrose 50% In Water IVPUSH 05/19/20 13:51 50 ml ONETIME ONE Administration Sodium Chloride 500 mls @ 500 mls/hr 05/19/20 11:56 05/19/20 12:06 Normal Saline IV 05/19/20 12:55 500 mls/hr .BOLUS ONE Administration Promethazine HCl 12.5 mg/ 50.5 mls @ 200 mls/hr 05/19/20 12:59 05/19/20 14:58 Sodium Chloride IV 200 mls/hr Q6H PRN Administration Nausea/Vomiting Thiamine HCl 100 mg/ Sodium 101 mls @ 202 mls/hr 05/19/20 14:37 05/19/20 15:26 Chloride IV 05/19/20 14:38 202 mls/hr ONETIME ONE Administration Lactated Ringer's 1,000 mls @ 0 mls/hr 05/19/20 15:00 Ringers[facility] mg 05/19/20 15:38 05/19/20 15:50 Ativan IVPUSH 05/19/20 15:39 1 mg ONETIME ONE Administration Lorazepam Confirm 05/19/20 15:58 05/19/20 16:31 Ativan Administered 05/19/20 15:59 Not Given Dose 2 mg .ROUTE .STK-MED ONE Ondansetron HCl 8 mg 05/19/20 11:55 05/19/20 12:06 Zofran IVPUSH 05/19/20 11:56 8 mg ONETIME ONE Administration Ondansetron HCl Confirm 05/19/20 12:09 05/19/20 13:08 Zofran Administered 05/19/20 12:10 Not Given Dose 8 mg .ROUTE .STK-MED ONE Promethazine HCl Confirm 05/19/20 13:16 05/19/20 13:08 Phenergan Administered 05/19/20 13:17 Not Given Dose 25 mg .ROUTE .STK-MED ONE Promethazine HCl Confirm 05/19/20 15:04 05/19/20 15:00 Phenergan Administered 05/19/20 15:05 Not Given Dose 25 mg .ROUTE .STK-MED ONE Departure - Departure Time of Disposition: 17:00 Disposition: DC/Tfer to Acute Hospital 02 Clinical Impression: ETOH abuse, Alcohol dependence Pancreatitis, alcoholic, acute Qualifiers: Acute pancreatitis complication: no infection or necrosis Qualified Code(s): K85.20 - Alcohol induced acute pancreatitis without necrosis or infection - Discharge Information *PRESCRIPTION DRUG MONITORING PROGRAM REVIEWED*: Not Applicable *COPY OF PRESCRIPTION DRUG MONITORING REPORT IN PATIENT TRINO: Not Applicable Instructions: Alcohol Abuse and Dependence Information, Adult, Chronic Pancreatitis Referrals: Carmen Nunez LOGISTICS MANAGER [Primary Care Provider] - Forms: ED Department Discharge Sepsis Event Note (ED) - Evaluation Sepsis Screening Result: No Definite Risk - Focused Exam Vital Signs: Vital Signs Temp Pulse Resp BP Pulse Ox 05/19/20 16:23 98.7 F 117 H 28 H 120/58 L 90 L 05/19/20 14:18 99 F 18 142/84 H 05/19/20 10:53 98.2 F 120 H 18 135/76 96 - Problem List Review Problem List Initiated/Reviewed/Updated: Yes - My Orders Last 24 Hours: My Active Orders 05/19/20 11:42 Abdomen Pelvis wo Cont [CT] Stat - Assessment/Plan Last 24 Hours: My Active Orders 05/19/20 11:42 Abdomen Pelvis wo Cont [CT] Stat Plan: [id number] Choe in [place], he will accept patient. She will need a home health care social worker consult for treatment placement assistance. He would like a triglycerides and lactic acid done prior to transfer.
[2020-05-19] MEDS ORDERED: LORazepam 2 MG/ML SDV IVPUSH ONE (15:38)
[2020-05-19] MEDS ORDERED: LORazepam 2 MG/ML SDV ONE (15:58)
[2020-05-19 16:29] VITALS: BP 120/58; PULSE 117
--- NOTE | 2020-05-20 08:56 | CT ---
DATE OF SERVICE: 05/19/20 CLINICAL DATA: abdominal pain, low platelet UNENHANCED ABDOMEN AND PELVIC CT: Multislice acquisition through the abdomen and pelvis without IV or oral contrast was performed. Comparison is made to a prior exam dated 09/04/19. The lung bases are clear. The heart size is normal. There is diffuse fatty infiltration of the liver. No focal hepatic lesions. The gallbladder is distended. No calcified gallstones. No pericholecystic fluid. The spleen appears normal. The pancreas appears normal. The right and left adrenals appear normal. The right and left kidneys appear normal. No nephrocalcinosis or nephrolithiasis. No hydronephrosis or hydroureter. There is a small amount of fluid within the bladder. It appears normal. The patient is status post hysterectomy. No evidence of appendicitis. No free air. No free fluid. No dilated loops of bowel. No adenopathy. No aortic aneurysm. There is degenerative disc disease at multiple levels in the lower thoracic and lumbar spine. No other significant findings. [id number] [facility]
== END 2020-05-19 17:00 ==
LOC: LB.ED 09:45
DX: K85.20 Alcohol induced acute pancreatitis without necrosis or infection (principal); F15.20 Other stimulant dependence, uncomplicated; F17.210 Nicotine dependence, cigarettes, uncomplicated; I10 Essential (primary) hypertension; J45.909 Unspecified asthma, uncomplicated; K21.9 Gastro-esophageal reflux disease without esophagitis; M19.90 Unspecified osteoarthritis, unspecified site; F41.9 Anxiety disorder, unspecified; F32.9 Major depressive disorder, single episode, unspecified; Z20.828 Contact with and (suspected) exposure to other viral communicable diseases; Z79.899 Other long term (current) drug therapy; Z88.5 Allergy status to narcotic agent
CPT/HCPCS: 36415; 36600; 74176; 80053; 80307; 81001; 82803; 83605; 83690; 84478; 85025; 93005; 96361; 96365; 96366; 96367; 96375; 99283; 99285-25; J2060; J2405; J2550; J3411; J7040; J7050; U0002

== ENCOUNTER 2020-06-18 15:02 | Inpatient (IN) | payer MEDICAID ==
[2020-06-18] MEDS ORDERED: Prochlorperazine 10 MG in Sodium Chloride 0.9% 50 ML IV ONE (15:50)
[2020-06-18] MEDS ORDERED: Morphine 4 MG/ML VIAL IVPUSH ONE ×4 (15:50→19:15)
--- NOTE | 2020-06-18 15:55 | EDM.PDOC ---
ED HPI GENERAL MEDICAL PROBLEM - General Chief Complaint: Drug or Alcohol Abuse Stated Complaint: PANCREAS FLARE Time Seen by Provider: 06/18/20 15:30 - History of Present Illness INITIAL COMMENTS - FREE TEXT/NARRATIVE: PMH pancreatitis and alcoholism. Upper abdominal pain and nausea started yesterday and patient states it is similar pain as previous episodes of pancreatitis with radiation into back. She took oral zofran at home with some relief of the nausea. Patient admits to not taking prescribed medications for several days and just drinking vodka. She was in [facility] last month with same symptoms, pancreatitis. - Related Data Allergies Allergy/AdvReac Type Severity Reaction Status Date / Time hydrocodone Allergy Rash Verified 09/04/19 13:46 oxycodone [Oxycodone] Allergy Hives Verified 09/04/19 13:46 Home Meds: Home Meds Gabapentin [Gralise] 300 mg PO TID 05/10/13 [History] busPIRone HCl [busPIRone] 15 mg PO Q6HR 05/10/13 [History] SUMAtriptan succinate [Imitrex] 50 mg PO BID PRN 12/21/13 [History] Albuterol [Ventolin HFA] 2 sprays IN DAILY PRN 08/11/19 [History] Baclofen 10 mg PO TID 08/11/19 [History] Fluticasone Propionate [Flovent] 2 spray INH DAILY PRN 08/11/19 [History] Multivitamin [Daily Chente] 1 tab PO DAILY 08/11/19 [History] traZODone HCl [Trazodone HCl] 100 mg PO DAILY 08/11/19 [History] Ondansetron [Zofran Odt] 1 tab SL TID 09/04/19 [History] Pantoprazole 1 tab PO DAILY 09/04/19 [History] Past Medical History HEENT 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: Sinusitis Cardiovascular 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: Hypertension Respiratory 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: Asthma Gastrointestinal 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: GERD, Pancreatitis, Other (See Below) Other Gastrointestinal History: hx ulcers several years ago STONE ROUGHER 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: Other STONE ROUGHER History: hysterectomy - cysts Musculoskeletal 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: Arthritis, Back Pain, Chronic Neurological 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: Migraines Other Neuro History: when detoxing Psychiatric 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: Addiction, Anxiety, Depression Other Psychiatric History: alcohol abuse and addiction Dermatologic 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: Eczema - Infectious Disease History Infectious Disease 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: Chicken Pox Social & Family History - Family History Family Medical History: Noncontributory - Caffeine Use Caffeine Use: Reports: Coffee, Soda - Living Situation & Occupation Living situation: Reports: Occupation: Unemployed ED ROS GENERAL - Review of Systems Review Of Systems: See Below Constitutional: Reports: No Symptoms HEENT: Reports: No Symptoms Respiratory: Reports: No Symptoms Cardiovascular: Reports: No Symptoms GI/Abdominal: Reports: Abdominal Pain, Nausea. Denies: Constipation, Diarrhea, Vomiting : Reports: No Symptoms Musculoskeletal: Reports: No Symptoms Skin: Reports: No Symptoms Neurological: Reports: No Symptoms Psychiatric: Reports: Depression ED EXAM, GI/ABD - Physical Exam Exam: See Below Exam Limited By: No Limitations General Appearance: Alert, No Apparent Distress Eyes: Bilateral: Normal Appearance Ears: Normal External Exam, Normal Canal, Hearing Grossly Normal, Normal TMs Nose: Normal Inspection, Normal Mucosa, No Blood Throat/Mouth: Normal Inspection, Normal Lips, Normal Oropharynx, Normal Voice, No Airway Compromise Head: Atraumatic Neck: Normal Inspection, Full Range of Motion Respiratory/Chest: No Respiratory Distress, Lungs Clear, Normal Breath Sounds, No Accessory Muscle Use Cardiovascular: Normal Peripheral Pulses, No Edema, No Murmur, Tachycardia GI/Abdominal Exam: Normal Bowel Sounds, Tender Back Exam: Full Range of Motion Extremities: Normal Inspection, Non-Tender, No Pedal Edema, Normal Capillary Refill Neurological: Alert, Oriented, Normal Cognition, No Motor/Sensory Deficits Psychiatric: Normal Affect, Normal Mood Skin Exam: Warm, Dry, Intact Lymphatic: No Adenopathy Course - Vital Signs Last Recorded V/S: Last Vital Signs Temp 97.5 F 06/18/20 15:28 Pulse 108 H 06/18/20 15:28 Resp 20 06/18/20 15:28 BP 149/89 H 06/18/20 15:28 Pulse Ox 99 06/18/20 15:28 - Orders/Labs/Meds Orders: Active Orders 24 hr Category Date Time Status Patient Status [ADT] Routine ADT 06/18/20 18:04 Active CIWAA Assessment [RC] Q30M Care 06/18/20 15:54 Active Up With Assistance [RC] ASDIRECTED Care 06/18/20 18:03 Active Vital Signs [RC] Q4H Care 06/18/20 18:04 Active NPO [Nothing Per Oral Diet] [DIET] Diet 06/18/20 Dinner Ordered LACTIC ACID [CHEM] Stat Lab 06/18/20 19:00 Ordered MVI, Adult with Vitamin K [Infuvite Adult] 10 ml Med 06/18/20 16:00 Active Thiamine [Vitamin B-1] 100 mg Folic Acid 1 mg Magnesium Sulfate [Magnesium Sulfate 50%] 3 gm Sodium Chloride 0.9% [Normal Saline] 1,000 ml IV ASDIRECTED Medication Orders Multivitamins/Minerals 10 ml/Thiamine HCl 100 mg/ Folic Acid 1 mg/ Magnesium Sulfate 3 gm/ Sodium Chloride 1,017.2 mls @ 1,000 mls/hr IV ASDIRECTED KELLEY Last Admin: 06/18/20 16:40 Dose: 1,000 mls/hr Documented by: ADALGISA Labs: Laboratory Tests 06/18/20 06/18/20 06/18/20 Range/Units 15:22 15:53 16:30 WBC 3.2 L D (4.0-11.0) K/uL RBC 4.70 (3.80-5.80) M/uL Hgb 13.8 (11.5-16.5) g/dL Hct 41.8 (37.0-47.0) % MCV 89 (76-96) fL MCH 29.4 (27.0-32.0) pg MCHC 33.0 (31.0-35.0) g/dL RDW 17.1 H (11.0-16.0) % Plt Count 144 L (150-500) K/uL MPV 10.0 (6.0-10.0) fL Neut % (Auto) 48.2 (45.0-70.0) % Lymph % (Auto) 40.8 H (20.0-40.0) % Kerr % (Auto) 10.7 H (3.0-10.0) % Eos % (Auto) 0.0 L (1.0-5.0) % Baso % (Auto) 0.3 (0.0-0.5) % Neut # (Auto) 1.54 L (2.00-7.50) K/uL Lymph # (Auto) 1.30 L (1.50-4.00) K/uL Kerr # (Auto) 0.34 (0.20-0.80) K/uL Eos # (Auto) 0.00 L (0.04-0.40) K/uL Baso # (Auto) 0.01 L (0.02-0.10) K/uL ABG pH (7.35-7.45) ABG pCO2 (35-45) mmHg ABG pO2 (80-105) mmHg ABG HCO3 (22-26) mmol/L ABG O2 Saturation (95-98) % ABG Base Excess (-2-2) Colin Test O2 Delivery Device Sodium 142 (136-145) mmol/L Potassium 4.6 (3.5-5.1) mmol/L Chloride 102 (98-107) mmol/L Carbon Dioxide 16.8 L D (21.0-32.0) mmol/L Anion Gap 27.8 H (5.0-15.0) mmol/L BUN 9 D (8-26) mg/dL Creatinine 0.78 D (0.55-1.02) mg/dL Est Cr Clr Drug Dosing TNP Estimated GFR (MDRD) > 60 (>60) MLS/MIN BUN/Creatinine Ratio 11.5 (6-25) Glucose 59 L (74-100) mg/dL Lactic Acid 6.1 H (0.4-2.0) mmol/L Calcium 7.7 L (8.5-10.1) mg/dL Total Bilirubin 0.5 (0.0-1.0) mg/dL AST 102 H (15-37) U/L ALT 91 H (12-78) U/L Alkaline Phosphatase 62 (46-116) U/L Total Protein 7.5 (6.4-8.2) g/dL Albumin 3.6 (3.4-5.0) g/dL Globulin 3.9 (2.2-4.2) g/dL Albumin/Globulin Ratio 0.9 (0.8-2.0) Lipase 85 D (73-393) U/L Ethyl Alcohol 313.0 H* (<3.0) mg/dL 06/18/20 Range/Units 17:35 WBC (4.0-11.0) K/uL RBC (3.80-5.80) M/uL Hgb (11.5-16.5) g/dL Hct (37.0-47.0) % MCV (76-96) fL MCH (27.0-32.0) pg MCHC (31.0-35.0) g/dL RDW (11.0-16.0) % Plt Count (150-500) K/uL MPV (6.0-10.0) fL Neut % (Auto) (45.0-70.0) % Lymph % (Auto) (20.0-40.0) % Kerr % (Auto) (3.0-10.0) % Eos % (Auto) (1.0-5.0) % Baso % (Auto) (0.0-0.5) % Neut # (Auto) (2.00-7.50) K/uL Lymph # (Auto) (1.50-4.00) K/uL Kerr # (Auto) (0.20-0.80) K/uL Eos # (Auto) (0.04-0.40) K/uL Baso # (Auto) (0.02-0.10) K/uL ABG pH 7.29 L (7.35-7.45) ABG pCO2 38.1 D (35-45) mmHg ABG pO2 67.4 L (80-105) mmHg ABG HCO3 18.1 L (22-26) mmol/L ABG O2 Saturation 90.8 L (95-98) % ABG Base Excess -8.5 L (-2-2) Colin Test Positive O2 Delivery Device Room air Sodium (136-145) mmol/L Potassium (3.5-5.1) mmol/L Chloride (98-107) mmol/L Carbon Dioxide (21.0-32.0) mmol/L Anion Gap (5.0-15.0) mmol/L BUN (8-26) mg/dL Creatinine (0.55-1.02) mg/dL Est Cr Clr Drug Dosing Estimated GFR (MDRD) (>60) MLS/MIN BUN/Creatinine Ratio (6-25) Glucose (74-100) mg/dL Lactic Acid (0.4-2.0) mmol/L Calcium (8.5-10.1) mg/dL Total Bilirubin (0.0-1.0) mg/dL AST (15-37) U/L ALT (12-78) U/L Alkaline Phosphatase (46-116) U/L Total Protein (6.4-8.2) g/dL Albumin (3.4-5.0) g/dL Globulin (2.2-4.2) g/dL Albumin/Globulin Ratio (0.8-2.0) Lipase (73-393) U/L Ethyl Alcohol (<3.0) mg/dL Meds: Medications Generic Name Dose Route Start Last Admin Trade Name Zandra PRN Reason Stop Dose Admin Multivitamins/Minerals 10 ml/ 1,017.2 mls @ 1,000 mls/hr 06/18/20 16:00 06/18/20 16:40 Thiamine HCl 100 mg/ Folic IV 1,000 mls/hr Acid 1 mg/ Magnesium Sulfate 3 ASDIRECTED KELLEY Administration gm/ Sodium Chloride Discontinued Medications Generic Name Dose Route Start Last Admin Trade Name Zandra PRN Reason Stop Dose Admin Dextrose/Water Confirm 06/18/20 16:34 06/18/20 16:40 Dextrose 50% In Water Administered 06/18/20 16:35 25 ml Dose Administration 50 ml .ROUTE .STK-MED ONE Prochlorperazine Edisylate 10 52 mls @ 150 mls/hr 06/18/20 15:50 06/18/20 16 :00 mg/ Sodium Chloride IV 06/18/20 16:10 150 mls/hr ONETIME ONE Administration Metoclopramide HCl 10 mg 06/18/20 16:55 06/18/20 17:08 Reglan IV 06/18/20 16:56 10 mg ONETIME ONE Administration Metoclopramide HCl Confirm 06/18/20 17:10 Reglan Administered 06/18/20 17:11 Dose 10 mg .ROUTE .STK-MED ONE Morphine Sulfate 4 mg 06/18/20 15:50 06/18/20 15:56 Morphine IVPUSH 06/18/20 15:51 4 mg ONETIME ONE Administration Morphine Sulfate Confirm 06/18/20 16:04 Morphine Administered 06/18/20 16:05 Dose 4 mg .ROUTE .STK-MED ONE Morphine Sulfate 4 mg 06/18/20 16:51 06/18/20 17:08 Morphine IVPUSH 06/18/20 16:52 4 mg ONETIME ONE Administration Morphine Sulfate Confirm 06/18/20 17:10 Morphine Administered 06/18/20 17:11 Dose 4 mg .ROUTE .STK-MED ONE Morphine Sulfate Confirm 06/18/20 18:05 Morphine Administered 06/18/20 18:06 Dose 4 mg .ROUTE .STK-MED ONE Prochlorperazine Edisylate Confirm 06/18/20 16:04 Compazine Administered 06/18/20 16:05 Dose 10 mg .ROUTE .STK-MED ONE Departure - Departure Time of Disposition: 18:10 Disposition: Admitted As Inpatient 67 Clinical Impression: Metabolic acidosis Alcohol withdrawal syndrome Qualifiers: Complication of substance-induced condition: with unspecified complication Qualified Code(s): F10.239 - Alcohol dependence with withdrawal, unspecified Abdominal pain Qualifiers: Abdominal location: epigastric Qualified Code(s): R10.13 - Epigastric pain - Discharge Information *PRESCRIPTION DRUG MONITORING PROGRAM REVIEWED*: Not Applicable *COPY OF PRESCRIPTION DRUG MONITORING REPORT IN PATIENT TRINO: Not Applicable Referrals: PCP,None [Primary Care Provider] - Forms: ED Department Discharge Sepsis Event Note (ED) - Evaluation Sepsis Screening Result: No Definite Risk - Focused Exam Vital Signs: Vital Signs Temp Pulse Resp BP Pulse Ox 06/18/20 15:28 97.5 F 108 H 20 149/89 H 99 - My Orders Last 24 Hours: My Active Orders 06/18/20 15:54 CIWAA Assessment [RC] Q30M 06/18/20 16:00 MVI, Adult with Vitamin K [Infuvite Adult] 10 ml Thiamine [Vitamin B-1] 100 mg Folic Acid 1 mg Magnesium Sulfate [Magnesium Sulfate 50%] 3 gm Sodium Chloride 0.9% [Normal Saline] 1,000 ml IV ASDIRECTED 06/18/20 Dinner NPO [Nothing Per Oral Diet] [DIET] 06/18/20 18:03 Up With Assistance [RC] ASDIRECTED 06/18/20 18:04 Patient Status [ADT] Routine Vital Signs [RC] Q4H 06/18/20 19:00 LACTIC ACID [CHEM] Stat - Assessment/Plan Last 24 Hours: My Active Orders 06/18/20 15:54 CIWAA Assessment [RC] Q30M 06/18/20 16:00 MVI, Adult with Vitamin K [Infuvite Adult] 10 ml Thiamine [Vitamin B-1] 100 mg Folic Acid 1 mg Magnesium Sulfate [Magnesium Sulfate 50%] 3 gm Sodium Chloride 0.9% [Normal Saline] 1,000 ml IV ASDIRECTED 06/18/20 Dinner NPO [Nothing Per Oral Diet] [DIET] 06/18/20 18:03 Up With Assistance [RC] ASDIRECTED 06/18/20 18:04 Patient Status [ADT] Routine Vital Signs [RC] Q4H 06/18/20 19:00 LACTIC ACID [CHEM] Stat Plan: We will medicate the patient for pain and nausea. IV fluids/banana bag. CIWWA scale. NPO
[2020-06-18] MEDS ORDERED: MVI, Adult with Vitamin K 10 ML, Thiamine 100 MG, Folic Acid 1 MG, Magnesium Sulfate 3 ... IV SCH ×5 (16:00)
[2020-06-18] MEDS ORDERED: Morphine 4 MG/ML VIAL ONE ×4 (16:04→22:48)
[2020-06-18] MEDS ORDERED: Prochlorperazine 10 MG/2 ML SDV ONE (16:04)
[2020-06-18] MEDS ORDERED: 50% Dextrose in Water 50 ML Syringe ONE (16:34)
[2020-06-18] MEDS ORDERED: Metoclopramide 10 MG/2 ML SDV IV ONE (16:55)
[2020-06-18] MEDS ORDERED: Metoclopramide 10 MG/2 ML SDV ONE (17:10)
[2020-06-18] MEDS ORDERED: SUMAtriptan 25 MG Tab PO PRN (19:26)
[2020-06-18] MEDS ORDERED: Albuterol 8 GM Inhaler INH PRN (19:26)
[2020-06-18] MEDS ORDERED: Mometasone Furoate Powder 220 MCG/Puff 14 Dose Inhaler INH PRN (19:26)
[2020-06-18] MEDS: LORazepam 2 MG/ML SDV IVPUSH PRN ×3 (19:30→23:58)
[2020-06-18] MEDS ORDERED: LORazepam 2 MG/ML SDV ONE (19:33)
[2020-06-18] MEDS ORDERED: GABAPENTIN 300 MG PO SCH (20:00)
[2020-06-18] MEDS ORDERED: ONDANSETRON SL SCH (20:00)
[2020-06-18] MEDS ORDERED: Promethazine 6.25 MG in Sodium Chloride 0.9% 50 ML IV PRN (20:58)
[2020-06-18] MEDS ORDERED: Acetaminophen 325 MG Tab PO PRN (20:58)
[2020-06-18] MEDS: Sodium Chloride 0.9% 1,000 ML IV ONE (21:07)
[2020-06-18] MEDS ORDERED: Morphine 10 MG/ML Syringe IVPUSH PRN (21:12)
[2020-06-18] MEDS: chlordiazePOXIDE 25 MG Cap PO ONE (21:35)
[2020-06-18] MEDS: Baclofen 10 MG Tab PO SCH (21:36)
[2020-06-18] MEDS: Nicotine 21 MG/24 Hr Patch TRDERM SCH (22:04)
[2020-06-18] MEDS: Sodium Chloride 0.9% 1,000 ML IV SCH (22:21)
--- NOTE | 2020-06-18 22:36 | PCM.CONS ---
H&P History of Present Illness - General Date of Service: 06/18/20 Admit Problem/Dx: Admission Diagnosis/Problem Admission Diagnosis/Problem Alcohol abuse Source of Information: Patient - History of Present Illness Initial Comments - Free Text/Narative: The patient presents with complaints of abdominal pain. She states that for the past few days she has had intermittent right upper quadrant abdominal pain that radiates to her back, 10/10 intensity at its worse however currently 4/10 intensity after being given pain medications. The pain is stabbing in quality and worse after she drinks alcohol is associated with nausea vomiting. Review of systems other emergency room is negative. - Related Data Allergies/Adverse Reactions: Allergies Allergy/AdvReac Type Severity Reaction Status Date / Time hydrocodone Allergy Rash Verified 09/04/19 13:46 oxycodone [Oxycodone] Allergy Hives Verified 09/04/19 13:46 Home Medications: Home Meds Gabapentin [Gralise] 300 mg PO TID 05/10/13 [History] busPIRone HCl [busPIRone] 15 mg PO Q6HR 05/10/13 [History] SUMAtriptan succinate [Imitrex] 50 mg PO BID PRN 12/21/13 [History] Albuterol [Ventolin HFA] 2 sprays IN DAILY PRN 08/11/19 [History] Baclofen 10 mg PO TID 08/11/19 [History] Fluticasone Propionate [Flovent] 2 spray INH DAILY PRN 08/11/19 [History] Multivitamin [Daily Chente] 1 tab PO DAILY 08/11/19 [History] traZODone HCl [Trazodone HCl] 100 mg PO DAILY 08/11/19 [History] Ondansetron [Zofran Odt] 1 tab SL TID 09/04/19 [History] Pantoprazole 1 tab PO DAILY 09/04/19 [History] Past Medical History HEENT 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: Sinusitis Other HEENT History: wears glasses Cardiovascular 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: Hypertension Respiratory 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: Asthma Gastrointestinal 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: GERD, Pancreatitis, Other (See Below) Other Gastrointestinal History: hx ulcers several years ago 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 OB/BYN History: hysterectomy - cysts Musculoskeletal 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: Arthritis, Back Pain, Chronic Neurological 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: Migraines Other Neuro History: when detoxing Psychiatric 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: Addiction, Anxiety, Depression Other Psychiatric History: alcohol abuse and addiction Dermatologic 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: Eczema - Infectious Disease History Infectious Disease 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: Chicken Pox - Past Surgical History Other GI Surgeries/Procedures: pancreatitis Social & Family History - Family History Family Medical History: Noncontributory - Tobacco Use Tobacco Use Status *Q: Current Every Day Tobacco User Years of Tobacco use: 30 Packs/Tins Daily: 0.5 Used Tobacco, but Quit: Yes Month/Year Tobacco Last Used: 2019 Tobacco Use Comment: She smokes half a pack per day on and off for the past 30 years - Caffeine Use Caffeine Use: Reports: Soda - Alcohol Use Days Per Week of Alcohol Use: 7 Number of Drinks Per Day: 20 Total Drinks Per Week: 140 Date of Last Drink: 06/18/20 Time of Last Drink: 14:00 Alcohol Use Comment: She drinks a liter of vodka daily, last drink was this morning - Recreational Drug Use Recreational Drug Use: Yes Drug Use in Last 12 Months: Yes Recreational Drug Type: Reports: Marijuana/Hashish Recreational Drug Use Frequency: Rarely - Living Situation & Occupation Living situation: Reports: Occupation: Unemployed H&P Review of Systems - Review of Systems: Review Of Systems: See Below Exam - Exam Exam: See Below - Vital Signs Vital Signs: Last Vital Signs Temp 37.3 C 06/18/20 19:35 Pulse 119 H 06/18/20 19:35 Resp 20 06/18/20 19:35 BP 146/96 H 06/18/20 19:35 Pulse Ox 93 L 06/18/20 20:59 Weight: 99.065 kg - Exam Physical Exam Comments:: Exam (performed via interactive video with assistance of bedside nurse): General: Alert, cooperative, no acute distress HEENT: Oral mucosa pink and moist without erythema Lungs: Clear to auscultation bilaterally without crackle or wheeze CV: Tachycardic rate and regular rhythm without loud murmur rub or gallop Abd: Bowel sounds present but hypoactive, does exhibit signs of pain with palpation in right upper quadrant with voluntary guarding done by bedside nurse Ext: No pitting edema noted Skin: Bruising on abdomen from previous pharmacologic DVT prophylaxis Neuro: Alert, oriented x 3. CN III -VII, XI, XII grossly intact, moves all extremities without any significant focal deficit Psych: Judgment and insight intact - Patient Data Lab Results Last 24 hrs: Laboratory Results - last 24 hr 06/18/20 06/18/20 06/18/20 Range/Units 15:22 15:53 16:30 WBC 3.2 L D (4.0-11.0) K/uL RBC 4.70 (3.80-5.80) M/uL Hgb 13.8 (11.5-16.5) g/dL Hct 41.8 (37.0-47.0) % MCV 89 (76-96) fL MCH 29.4 (27.0-32.0) pg MCHC 33.0 (31.0-35.0) g/dL RDW 17.1 H (11.0-16.0) % Plt Count 144 L (150-500) K/uL MPV 10.0 (6.0-10.0) fL Neut % (Auto) 48.2 (45.0-70.0) % Lymph % (Auto) 40.8 H (20.0-40.0) % [place] % (Auto) 10.7 H (3.0-10.0) % Eos % (Auto) 0.0 L (1.0-5.0) % Baso % (Auto) 0.3 (0.0-0.5) % Neut # (Auto) 1.54 L (2.00-7.50) K/uL Lymph # (Auto) 1.30 L (1.50-4.00) K/uL [place] # (Auto) 0.34 (0.20-0.80) K/uL Eos # (Auto) 0.00 L (0.04-0.40) K/uL Baso # (Auto) 0.01 L (0.02-0.10) K/uL ABG pH (7.35-7.45) ABG pCO2 (35-45) mmHg ABG pO2 (80-105) mmHg ABG HCO3 (22-26) mmol/L ABG O2 Saturation (95-98) % ABG Base Excess (-2-2) Colin Test VBG pH (7.31-7.41) VBG pCO2 (41-51) mm/Hg VBG pO2 (30-50) mm/Hg VBG HCO3 (23.0-28.0) mmol/L VBG O2 Saturation (60-85) % VBG Base Excess (-2-3) mm/L O2 Delivery Device Sodium 142 (136-145) mmol/L Potassium 4.6 (3.5-5.1) mmol/L Chloride 102 (98-107) mmol/L Carbon Dioxide 16.8 L D (21.0-32.0) mmol/L Anion Gap 27.8 H (5.0-15.0) mmol/L BUN 9 D (8-26) mg/dL Creatinine 0.78 D (0.55-1.02) mg/dL Est Cr Clr Drug Dosing TNP Estimated GFR (MDRD) > 60 (>60) MLS/MIN BUN/Creatinine Ratio 11.5 (6-25) Glucose 59 L (74-100) mg/dL Lactic Acid 6.1 H (0.4-2.0) mmol/L Calcium 7.7 L (8.5-10.1) mg/dL Total Bilirubin 0.5 (0.0-1.0) mg/dL AST 102 H (15-37) U/L ALT 91 H (12-78) U/L Alkaline Phosphatase 62 (46-116) U/L Total Protein 7.5 (6.4-8.2) g/dL Albumin 3.6 (3.4-5.0) g/dL Globulin 3.9 (2.2-4.2) g/dL Albumin/Globulin Ratio 0.9 (0.8-2.0) Lipase 85 D (73-393) U/L Ethyl Alcohol 313.0 H* (<3.0) mg/dL 06/18/20 06/18/20 06/18/20 Range/Units 17:35 19:08 22:14 WBC (4.0-11.0) K/uL RBC (3.80-5.80) M/uL Hgb (11.5-16.5) g/dL Hct (37.0-47.0) % MCV (76-96) fL MCH (27.0-32.0) pg MCHC (31.0-35.0) g/dL RDW (11.0-16.0) % Plt Count (150-500) K/uL MPV (6.0-10.0) fL Neut % (Auto) (45.0-70.0) % Lymph % (Auto) (20.0-40.0) % [place] % (Auto) (3.0-10.0) % Eos % (Auto) (1.0-5.0) % Baso % (Auto) (0.0-0.5) % Neut # (Auto) (2.00-7.50) K/uL Lymph # (Auto) (1.50-4.00) K/uL [place] # (Auto) (0.20-0.80) K/uL Eos # (Auto) (0.04-0.40) K/uL Baso # (Auto) (0.02-0.10) K/uL ABG pH 7.29 L (7.35-7.45) ABG pCO2 38.1 D (35-45) mmHg ABG pO2 67.4 L (80-105) mmHg ABG HCO3 18.1 L (22-26) mmol/L ABG O2 Saturation 90.8 L (95-98) % ABG Base Excess -8.5 L (-2-2) Colin Test Positive VBG pH 7.32 (7.31-7.41) VBG pCO2 36.8 L (41-51) mm/Hg VBG pO2 65.5 H (30-50) mm/Hg VBG HCO3 19.1 L (23.0-28.0) mmol/L VBG O2 Saturation 91.1 H (60-85) % VBG Base Excess -7.0 L (-2-3) mm/L O2 Delivery Device Room air Room air Sodium (136-145) mmol/L Potassium (3.5-5.1) mmol/L Chloride (98-107) mmol/L Carbon Dioxide (21.0-32.0) mmol/L Anion Gap (5.0-15.0) mmol/L BUN (8-26) mg/dL Creatinine (0.55-1.02) mg/dL Est Cr Clr Drug Dosing Estimated GFR (MDRD) (>60) MLS/MIN BUN/Creatinine Ratio (6-25) Glucose (74-100) mg/dL Lactic Acid 6.1 H (0.4-2.0) mmol/L Calcium (8.5-10.1) mg/dL Total Bilirubin (0.0-1.0) mg/dL AST (15-37) U/L ALT (12-78) U/L Alkaline Phosphatase (46-116) U/L Total Protein (6.4-8.2) g/dL Albumin (3.4-5.0) g/dL Globulin (2.2-4.2) g/dL Albumin/Globulin Ratio (0.8-2.0) Lipase (73-393) U/L Ethyl Alcohol (<3.0) mg/dL Result Diagrams: 06/18/20 15:53 06/18/20 22:30 Sepsis Event Note - Evaluation Sepsis Screening Result: No Definite Risk - Focused Exam Vital Signs: Vital Signs Temp Pulse Resp BP Pulse Ox 06/18/20 20:59 93 L 06/18/20 19:35 37.3 C 119 H 20 146/96 H 94 L 06/18/20 15:28 36.4 C 108 H 20 149/89 H 99 *Q Meaningful Use (ADM) - VTE *Q VTE Criteria *Q: 05 VTE Mechanical Contraindications *Q: At Risk for Falls - VTE Risk Assess *Q Each Risk Factor Represents 1 Point: Age 41 - 59 years Total Score 1 Point Risk Factors: 1 Each Risk Factor Represents 2 Points: None Total Score 2 Point Risk Factors: 0 Each Risk Factor Represents 3 Points: None Total Score 3 Point Risk Factors: 0 - Stroke *Q Stroke Criteria *Q: not needed Aspirin Contraindications Stroke *Q: Other (Use Special Inst) - AMI *Q AMI Criteria *Q: not needed Aspirin Contraindications AMI *Q: Alternative TX Request PT Statin Contraindications AMI *Q: Alternative TX Request PT Consult PN Assessment/Plan Procedures: Procedures ASSAY GLUCOSE BLOOD QUANT (09/04/19) ASSAY OF AMYLASE (08/13/19) ASSAY OF ETHANOL (12/21/13) ASSAY OF LACTIC ACID (05/19/20) ASSAY OF LIPASE (05/19/20) ASSAY OF SERUM POTASSIUM (10/27/13) ASSAY OF TRIGLYCERIDES (05/19/20) ASSAY OF TROPONIN QUANT (09/04/19) ASSAY THYROID STIM HORMONE (09/04/19) BLOOD GASES ANY COMBINATION (05/19/20) BLOOD PH (09/04/19) COMPLETE CBC AUTOMATED (05/10/13) COMPLETE CBC W/AUTO DIFF WBC (05/19/20) COMPREHEN METABOLIC PANEL (05/19/20) CT ABD & PELV 1/> REGNS (10/27/13) CT ABD & PELV W/CONTRAST (08/13/19) CT ABD & PELVIS W/O CONTRAST (05/19/20) DRUG SCREEN QUANTALCOHOLS (09/04/19) DRUG SCRN 1+ CLASS NONCHROMO (05/10/13) DRUG TEST PRSMV CHEM ANLYZR (05/19/20) ELECTROCARDIOGRAM TRACING (05/19/20) EMERGENCY DEPT VISIT (05/19/20) EMERGENCY DEPT VISIT (10/30/19) EMERGENCY DEPT VISIT (09/04/19) EMERGENCY DEPT VISIT (08/13/19) EMERGENCY DEPT VISIT (08/13/19) EMERGENCY DEPT VISIT (04/15/19) GLUCOSE BLOOD TEST (09/04/19) HYDRATE IV INFUSION ADD-ON (05/19/20) INFLUENZA ASSAY W/OPTIC (08/13/19) METABOLIC PANEL TOTAL CA (09/14/19) ROUTINE VENIPUNCTURE (05/19/20) SARS-COV2 COVID-19 AMP PRB (05/19/20) SCR MAMMO BI INCL CAD (05/12/19) THER/PROPH/DIAG INJ IV PUSH (08/13/19) THER/PROPH/DIAG INJ SC/IM (09/04/19) THER/PROPH/DIAG IV INF ADDON (05/19/20) THER/PROPH/DIAG IV INF INIT (05/19/20) TRANSVAGINAL US NON-OB (10/27/13) TX/PRO/DX INJ NEW DRUG ADDON (05/19/20) TX/PRO/DX INJ SAME DRUG 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 (10/30/19) TX/PROPH/DG ADDL SEQ IV INF (05/19/20) URINALYSIS AUTO W/O SCOPE (11/15/13) URINALYSIS AUTO W/SCOPE (05/19/20) URINE BACTERIA CULTURE (11/15/13) US EXAM ABDOM COMPLETE (08/17/19) US EXAM PELVIC COMPLETE (10/27/13) WITHDRAWAL OF ARTERIAL BLOOD (05/19/20) X-RAY EXAM OF ANKLE (06/02/13) X-RAY EXAM OF KNEE 1 OR 2 (06/02/13) Problem List Initiated/Reviewed/Updated: Yes My Orders Last 24 Hours: My Active Orders 06/18/20 Breakfast Nothing per Oral Now Diet [DIET] 06/18/20 20:58 Height and Weight [RC] DAILY Oxygen Therapy [RC] 10 Up ad Sarah [RC] ASDIRECTED Vital Signs [RC] 00,04,08,12,16,20 Acetaminophen [TylenoL] 650 mg PO Q4H PRN Ondansetron [Zofran] 4 mg IV Q4H PRN Promethazine [Phenergan] 6.25 mg Sodium Chloride 0.9% [Normal Saline] 50 ml IV Q6H Resuscitation Status Routine 06/18/20 20:59 Cardiac Monitoring [RC] CONTINUOUS Intake and Output [RC] 06,18 Notify Provider Vital Signs [RC] ASDIRECTED Pulse Oximetry [RC] CONTINUOUS 06/18/20 21:00 Nicotine [Habitrol] 21 mg TRDERM DAILY 06/18/20 21:12 Morphine 4 mg IVPUSH Q4H PRN 06/18/20 22:00 Sodium Chloride 0.9% [Normal Saline] 1,000 ml IV ASDIRECTED 06/18/20 22:30 COMPREHENSIVE METABOLIC PN,CMP [CHEM] Routine LACTIC ACID [CHEM] Routine 06/19/20 08:00 Enoxaparin [Lovenox] 40 mg SUBCUT DAILY Folic Acid 1 mg PO DAILY chlordiazePOXIDE [Librium] 50 mg PO TID 06/19/20 20:00 Thiamine [Vitamin B-1] 100 mg PO BEDTIME Plan: 1. Acute pancreatitis-secondary to EtOH abuse. N.p.o. IVF. Pain control with IV morphine 2. EtOH abuse-the patient consumes at least a liter of vodka daily. Her last drink was this morning. On CIWA with Ativan IV as needed. Given her significant alcohol intake I have scheduled Librium 50 mg 3 times daily. Continue thiamine and folic acid. High risk for worsening symptoms. 3. Metabolic acidosis-this improved with additional 1L IVF bolus. IVF increased to 150 cc/h. Continue to trend BMP 4. Elevated lactic acid-improving with IVF. Continue to trend 5. Asthma-stable as needed albuterol 6. GERD/PUD-stable on Protonix 7. HTN-stable for now monitor. The patient is not adherent with blood pressure medications. She does not remember the name of the medication she has been prescribed. As needed hydralazine for SBP greater than 190, DBP greater than 100 8. Anxiety/depression-stable on BuSpar 9. Smoking habituation-nicotine patch 10. Chronic neck and back pain-on Neurontin 11. Migraines-as needed sumatriptan 12. DVT prophylaxis Lovenox 13. CODE STATUS full code discussed with patient Chart review was performed as well as evaluation of the patient via video. Thank you for involving ehospitalist. Please contact [phone] if further assistance is needed.
[2020-06-18] MEDS: Morphine 4 MG/ML VIAL IVPUSH PRN (22:45)
[2020-06-18] MEDS ORDERED: Morphine 2 MG/ML SYRINGE IVPUSH ONE (23:37)
[2020-06-18] MEDS ORDERED: Morphine 2 MG/ML SYRINGE ONE (23:44)
[2020-06-18] MEDS: busPIRone 10 MG Tab ONE (23:53)
[2020-06-19] MEDS: busPIRone 15 MG Tab PO SCH ×3 (00:01→13:53)
[2020-06-19] MEDS: Ibuprofen 200 MG Tab PO PRN (01:11)
[2020-06-19] MEDS ORDERED: hydrALAZINE 20 MG/ML SDV IVPUSH PRN (01:44)
[2020-06-19] MEDS: LORazepam 2 MG/ML SDV IVPUSH PRN ×6 (01:48→16:55)
[2020-06-19] MEDS: Morphine 4 MG/ML VIAL IVPUSH PRN ×5 (01:50→19:29)
[2020-06-19] MEDS ORDERED: LORazepam 2 MG/ML SDV ONE ×3 (03:45→07:57)
[2020-06-19] MEDS: Sodium Chloride 0.9% 1,000 ML IV SCH ×2 (04:16→20:47)
[2020-06-19] MEDS ORDERED: Sodium Chloride 0.9% 500 ML IV ONE (04:35)
[2020-06-19] MEDS: Ondansetron 4 MG/2 ML SDV IV PRN ×2 (06:00→19:30)
[2020-06-19] MEDS ORDERED: busPIRone 10 MG Tab ONE ×3 (06:20→13:52)
[2020-06-19] MEDS: Pantoprazole 40 MG Tab.CR PO SCH (07:27)
[2020-06-19] MEDS: Multivitamins with Iron/Calcium/Folic Acid/Minerals Tab PO SCH (07:27)
[2020-06-19] MEDS: Baclofen 10 MG Tab PO SCH ×3 (07:27→19:33)
[2020-06-19] MEDS: Gabapentin 300 MG Cap PO SCH ×3 (07:27→19:34)
[2020-06-19] MEDS: Ondansetron 4 MG Tab.DIS PO SCH ×3 (07:27→19:35)
[2020-06-19] MEDS: Folic Acid 1 MG Tab PO SCH (07:27)
[2020-06-19] MEDS: chlordiazePOXIDE 25 MG Cap PO SCH ×3 (07:28→19:34)
[2020-06-19] MEDS: Enoxaparin 40 MG/0.4 ML Syringe SUBCUT SCH (07:29)
[2020-06-19] MEDS ORDERED: traZODone 100 MG Tab PO SCH (08:00)
[2020-06-19] MEDS: busPIRone 10 MG Tab ONE (13:48)
[2020-06-19] MEDS: chlordiazePOXIDE 25 MG Cap PO ONE (13:49)
[2020-06-19] MEDS: Sodium Chloride 0.9% 1,000 ML IV ONE (13:55)
--- NOTE | 2020-06-19 14:47 | PCM.PN ---
- General Info Date of Service: 06/19/20 - Patient Data Vitals - Most Recent: Last Vital Signs Temp 36.6 C 06/19/20 08:00 Pulse 98 06/19/20 12:00 Resp 16 06/19/20 08:00 BP 124/73 06/19/20 08:00 Pulse Ox 98 06/19/20 09:30 Weight - Most Recent: 101.151 kg I&O - Last 24 Hours: Intake & Output 06/18/20 06/19/20 06/19/20 22:59 06:59 14:59 Intake Total 2852 Output Total 900 Balance 1952 Lab Results Last 24 Hours: Laboratory Results - last 24 hr 06/18/20 06/18/20 06/18/20 Range/Units 15:22 15:53 16:30 WBC 3.2 L D (4.0-11.0) K/uL RBC 4.70 (3.80-5.80) M/uL Hgb 13.8 (11.5-16.5) g/dL Hct 41.8 (37.0-47.0) % MCV 89 (76-96) fL MCH 29.4 (27.0-32.0) pg MCHC 33.0 (31.0-35.0) g/dL RDW 17.1 H (11.0-16.0) % Plt Count 144 L (150-500) K/uL MPV 10.0 (6.0-10.0) fL Neut % (Auto) 48.2 (45.0-70.0) % Lymph % (Auto) 40.8 H (20.0-40.0) % [place] % (Auto) 10.7 H (3.0-10.0) % Eos % (Auto) 0.0 L (1.0-5.0) % Baso % (Auto) 0.3 (0.0-0.5) % Neut # (Auto) 1.54 L (2.00-7.50) K/uL Lymph # (Auto) 1.30 L (1.50-4.00) K/uL [place] # (Auto) 0.34 (0.20-0.80) K/uL Eos # (Auto) 0.00 L (0.04-0.40) K/uL Baso # (Auto) 0.01 L (0.02-0.10) K/uL ABG pH (7.35-7.45) ABG pCO2 (35-45) mmHg ABG pO2 (80-105) mmHg ABG HCO3 (22-26) mmol/L ABG O2 Saturation (95-98) % ABG Base Excess (-2-2) Colin Test VBG pH (7.31-7.41) VBG pCO2 (41-51) mm/Hg VBG pO2 (30-50) mm/Hg VBG HCO3 (23.0-28.0) mmol/L VBG O2 Saturation (60-85) % VBG Base Excess (-2-3) mm/L O2 Delivery Device Sodium 142 (136-145) mmol/L Potassium 4.6 (3.5-5.1) mmol/L Chloride 102 (98-107) mmol/L Carbon Dioxide 16.8 L D (21.0-32.0) mmol/L Anion Gap 27.8 H (5.0-15.0) mmol/L BUN 9 D (8-26) mg/dL Creatinine 0.78 D (0.55-1.02) mg/dL Est Cr Clr Drug Dosing TNP Estimated GFR (MDRD) > 60 (>60) MLS/MIN BUN/Creatinine Ratio 11.5 (6-25) Glucose 59 L (74-100) mg/dL Lactic Acid 6.1 H (0.4-2.0) mmol/L Calcium 7.7 L (8.5-10.1) mg/dL Phosphorus (2.5-4.9) mg/dL Magnesium (1.8-2.4) mg/dL Total Bilirubin 0.5 (0.0-1.0) mg/dL AST 102 H (15-37) U/L ALT 91 H (12-78) U/L Alkaline Phosphatase 62 (46-116) U/L Total Protein 7.5 (6.4-8.2) g/dL Albumin 3.6 (3.4-5.0) g/dL Globulin 3.9 (2.2-4.2) g/dL Albumin/Globulin Ratio 0.9 (0.8-2.0) Lipase 85 D (73-393) U/L Ethyl Alcohol 313.0 H* (<3.0) mg/dL SARS CoV-2 RNA Rapid ARIN 06/18/20 06/18/20 06/18/20 Range/Units 17:35 19:08 22:14 WBC (4.0-11.0) K/uL RBC (3.80-5.80) M/uL Hgb (11.5-16.5) g/dL Hct (37.0-47.0) % MCV (76-96) fL MCH (27.0-32.0) pg MCHC (31.0-35.0) g/dL RDW (11.0-16.0) % Plt Count (150-500) K/uL MPV (6.0-10.0) fL Neut % (Auto) (45.0-70.0) % Lymph % (Auto) (20.0-40.0) % [place] % (Auto) (3.0-10.0) % Eos % (Auto) (1.0-5.0) % Baso % (Auto) (0.0-0.5) % Neut # (Auto) (2.00-7.50) K/uL Lymph # (Auto) (1.50-4.00) K/uL [place] # (Auto) (0.20-0.80) K/uL Eos # (Auto) (0.04-0.40) K/uL Baso # (Auto) (0.02-0.10) K/uL ABG pH 7.29 L (7.35-7.45) ABG pCO2 38.1 D (35-45) mmHg ABG pO2 67.4 L (80-105) mmHg ABG HCO3 18.1 L (22-26) mmol/L ABG O2 Saturation 90.8 L (95-98) % ABG Base Excess -8.5 L (-2-2) Colin Test Positive VBG pH 7.32 (7.31-7.41) VBG pCO2 36.8 L (41-51) mm/Hg VBG pO2 65.5 H (30-50) mm/Hg VBG HCO3 19.1 L (23.0-28.0) mmol/L VBG O2 Saturation 91.1 H (60-85) % VBG Base Excess -7.0 L (-2-3) mm/L O2 Delivery Device Room air Room air Sodium (136-145) mmol/L Potassium (3.5-5.1) mmol/L Chloride (98-107) mmol/L Carbon Dioxide (21.0-32.0) mmol/L Anion Gap (5.0-15.0) mmol/L BUN (8-26) mg/dL Creatinine (0.55-1.02) mg/dL Est Cr Clr Drug Dosing Estimated GFR (MDRD) (>60) MLS/MIN BUN/Creatinine Ratio (6-25) Glucose (74-100) mg/dL Lactic Acid 6.1 H (0.4-2.0) mmol/L Calcium (8.5-10.1) mg/dL Phosphorus (2.5-4.9) mg/dL Magnesium (1.8-2.4) mg/dL Total Bilirubin (0.0-1.0) mg/dL AST (15-37) U/L ALT (12-78) U/L Alkaline Phosphatase (46-116) U/L Total Protein (6.4-8.2) g/dL Albumin (3.4-5.0) g/dL Globulin (2.2-4.2) g/dL Albumin/Globulin Ratio (0.8-2.0) Lipase (73-393) U/L Ethyl Alcohol (<3.0) mg/dL SARS CoV-2 RNA Rapid ARIN 06/18/20 06/18/20 06/19/20 Range/Units 22:15 22:30 08:00 WBC (4.0-11.0) K/uL RBC (3.80-5.80) M/uL Hgb (11.5-16.5) g/dL Hct (37.0-47.0) % MCV (76-96) fL MCH (27.0-32.0) pg MCHC (31.0-35.0) g/dL RDW (11.0-16.0) % Plt Count (150-500) K/uL MPV (6.0-10.0) fL Neut % (Auto) (45.0-70.0) % Lymph % (Auto) (20.0-40.0) % [place] % (Auto) (3.0-10.0) % Eos % (Auto) (1.0-5.0) % Baso % (Auto) (0.0-0.5) % Neut # (Auto) (2.00-7.50) K/uL Lymph # (Auto) (1.50-4.00) K/uL [place] # (Auto) (0.20-0.80) K/uL Eos # (Auto) (0.04-0.40) K/uL Baso # (Auto) (0.02-0.10) K/uL ABG pH (7.35-7.45) ABG pCO2 (35-45) mmHg ABG pO2 (80-105) mmHg ABG HCO3 (22-26) mmol/L ABG O2 Saturation (95-98) % ABG Base Excess (-2-2) Colin Test VBG pH (7.31-7.41) VBG pCO2 (41-51) mm/Hg VBG pO2 (30-50) mm/Hg VBG HCO3 (23.0-28.0) mmol/L VBG O2 Saturation (60-85) % VBG Base Excess (-2-3) mm/L O2 Delivery Device Sodium 143 (136-145) mmol/L Potassium 4.2 (3.5-5.1) mmol/L Chloride 108 H (98-107) mmol/L Carbon Dioxide 17.4 L (21.0-32.0) mmol/L Anion Gap 21.8 H (5.0-15.0) mmol/L BUN 5 L D (8-26) mg/dL Creatinine 0.62 D (0.55-1.02) mg/dL Est Cr Clr Drug Dosing 107.91 Estimated GFR (MDRD) > 60 (>60) MLS/MIN BUN/Creatinine Ratio 8.1 (6-25) Glucose 64 L (74-100) mg/dL Lactic Acid 4.2 H 0.8 (0.4-2.0) mmol/L Calcium 6.6 L (8.5-10.1) mg/dL Phosphorus (2.5-4.9) mg/dL Magnesium (1.8-2.4) mg/dL Total Bilirubin 0.5 (0.0-1.0) mg/dL AST 72 H (15-37) U/L ALT 71 (12-78) U/L Alkaline Phosphatase 49 (46-116) U/L Total Protein 6.2 L (6.4-8.2) g/dL Albumin 3.0 L (3.4-5.0) g/dL Globulin 3.2 (2.2-4.2) g/dL Albumin/Globulin Ratio 0.9 (0.8-2.0) Lipase (73-393) U/L Ethyl Alcohol (<3.0) mg/dL SARS CoV-2 RNA Rapid ARIN 06/19/20 06/19/20 06/19/20 Range/Units 08:00 08:00 09:10 WBC 3.6 L (4.0-11.0) K/uL RBC 4.00 (3.80-5.80) M/uL Hgb 11.7 (11.5-16.5) g/dL Hct 36.8 L (37.0-47.0) % MCV 92 (76-96) fL MCH 29.3 (27.0-32.0) pg MCHC 31.8 (31.0-35.0) g/dL RDW 16.9 H (11.0-16.0) % Plt Count 101 L D (150-500) K/uL MPV 9.1 (6.0-10.0) fL Neut % (Auto) 50.3 (45.0-70.0) % Lymph % (Auto) 30.3 (20.0-40.0) % [place] % (Auto) 18.3 H (3.0-10.0) % Eos % (Auto) 0.8 L (1.0-5.0) % Baso % (Auto) 0.3 (0.0-0.5) % Neut # (Auto) 1.81 L (2.00-7.50) K/uL Lymph # (Auto) 1.09 L (1.50-4.00) K/uL [place] # (Auto) 0.66 (0.20-0.80) K/uL Eos # (Auto) 0.03 L (0.04-0.40) K/uL Baso # (Auto) 0.01 L (0.02-0.10) K/uL ABG pH (7.35-7.45) ABG pCO2 (35-45) mmHg ABG pO2 (80-105) mmHg ABG HCO3 (22-26) mmol/L ABG O2 Saturation (95-98) % ABG Base Excess (-2-2) Colin Test VBG pH (7.31-7.41) VBG pCO2 (41-51) mm/Hg VBG pO2 (30-50) mm/Hg VBG HCO3 (23.0-28.0) mmol/L VBG O2 Saturation (60-85) % VBG Base Excess (-2-3) mm/L O2 Delivery Device Sodium 141 (136-145) mmol/L Potassium 4.0 (3.5-5.1) mmol/L Chloride 104 (98-107) mmol/L Carbon Dioxide 23.0 D (21.0-32.0) mmol/L Anion Gap 18.0 H (5.0-15.0) mmol/L BUN 5 L (8-26) mg/dL Creatinine 0.63 (0.55-1.02) mg/dL Est Cr Clr Drug Dosing 106.20 Estimated GFR (MDRD) > 60 (>60) MLS/MIN BUN/Creatinine Ratio 7.9 (6-25) Glucose 71 L (74-100) mg/dL Lactic Acid (0.4-2.0) mmol/L Calcium 6.9 L (8.5-10.1) mg/dL Phosphorus 1.5 L (2.5-4.9) mg/dL Magnesium 1.3 L (1.8-2.4) mg/dL Total Bilirubin 1.1 H D (0.0-1.0) mg/dL AST 87 H (15-37) U/L ALT 75 (12-78) U/L Alkaline Phosphatase 49 (46-116) U/L Total Protein 6.3 L (6.4-8.2) g/dL Albumin 3.1 L (3.4-5.0) g/dL Globulin 3.2 (2.2-4.2) g/dL Albumin/Globulin Ratio 1.0 (0.8-2.0) Lipase 74 (73-393) U/L Ethyl Alcohol (<3.0) mg/dL SARS CoV-2 RNA Rapid ARIN Negative Med Orders - Current: Current Medications Albuterol (Ventolin Hfa) 0 gm INH DAILY PRN PRN Reason: Dyspnea Stop: 06/20/20 23:59 Baclofen (Lioresal) 10 mg PO TID [facility] Last Admin: 06/19/20 13:49 Dose: 10 mg Documented by: Buspirone HCl (Buspar) 15 mg PO Q6HR [facility] Last Admin: 06/19/20 13:53 Dose: 15 mg Documented by: Chlordiazepoxide HCl (Librium) 50 mg PO TID [facility] Last Admin: 06/19/20 14:40 Dose: 50 mg Documented by: Enoxaparin Sodium (Lovenox) 40 mg SUBCUT DAILY [facility] Last Admin: 06/19/20 07:29 Dose: 40 mg Documented by: Folic Acid (Folic Acid) 1 mg PO DAILY [facility] Last Admin: 06/19/20 07:27 Dose: 1 mg Documented by: Gabapentin (Neurontin) 300 mg PO TID [facility] Last Admin: 06/19/20 13:49 Dose: 300 mg Documented by: Hydralazine HCl (Apresoline) 10 mg IVPUSH Q8H PRN PRN Reason: SBP>190, DBP>100 Multivitamins/Minerals 10 ml/Thiamine HCl 100 mg/ Folic Acid 1 mg/ Magnesium Sulfate 3 gm/ Sodium Chloride 1,017.2 mls @ 1,000 mls/hr IV ASDIRECTED [facility] Last Admin: 06/18/20 16:40 Dose: 1,000 mls/hr Documented by: Sodium Chloride (Normal Saline) 1,000 mls @ 150 mls/hr IV ASDIRECTED [facility] Last Admin: 06/19/20 04:16 Dose: 125 mls/hr Documented by: Promethazine HCl 6.25 mg/ (Sodium Chloride) 50.25 mls @ 200 mls/hr IV Q6H PRN PRN Reason: Nausea/Vomiting Ibuprofen (Motrin) 200 mg PO Q6H PRN PRN Reason: mild pain/fever Last Admin: 06/19/20 01:11 Dose: 200 mg Documented by: Lorazepam (Ativan) 0 mg IVPUSH Q1H PRN; Protocol PRN Reason: Anxiety Last Admin: 06/19/20 10:53 Dose: 1 mg Documented by: Mometasone Furoate (Asmanex 220 Mcg) 0 puff INH DAILY PRN PRN Reason: Allergies Morphine Sulfate (Morphine) 4 mg IVPUSH Q3H PRN PRN Reason: Pain (severe 7-10) Last Admin: 06/19/20 10:46 Dose: 4 mg Documented by: Multivitamins/Minerals (Thera M Plus) 1 tab PO DAILY [facility] Last Admin: 06/19/20 07:27 Dose: 1 tab Documented by: Nicotine (Habitrol) 21 mg TRDERM DAILY [facility] Last Admin: 06/18/20 22:04 Dose: 21 mg Documented by: Ondansetron HCl (Zofran) 4 mg IV Q4H PRN PRN Reason: Nausea/Vomiting Last Admin: 06/19/20 06:00 Dose: 4 mg Documented by: Ondansetron HCl (Zofran Odt) 4 mg PO TID [facility] Last Admin: 06/19/20 13:49 Dose: 4 mg Documented by: Pantoprazole Sodium (Protonix) 40 mg PO DAILY [facility] Last Admin: 06/19/20 07:27 Dose: 40 mg Documented by: Sumatriptan Succinate (Imitrex) 50 mg PO BID PRN PRN Reason: headache Thiamine HCl (Vitamin B-1) 100 mg PO BEDTIME [facility] Trazodone HCl (Trazodone) 100 mg PO DAILY [facility] Last Admin: 06/19/20 07:29 Dose: 100 mg Documented by: Discontinued Medications Acetaminophen (Tylenol) 650 mg PO Q4H PRN PRN Reason: Pain (Mild 1-3)/fever Buspirone HCl (Buspar) Confirm Administered Dose 20 mg .ROUTE .STK-MED ONE Stop: 06/18/20 23:44 Last Admin: 06/19/20 13:48 Dose: 20 mg Documented by: Buspirone HCl (Buspar) Confirm Administered Dose 20 mg .ROUTE .STK-MED ONE Stop: 06/19/20 06:21 Buspirone HCl (Buspar) Confirm Administered Dose 10 mg .ROUTE .STK-MED ONE Stop: 06/19/20 13:45 Buspirone HCl (Buspar) Confirm Administered Dose 10 mg .ROUTE .STK-MED ONE Stop: 06/19/20 13:53 Chlordiazepoxide HCl (Librium) 50 mg PO ONETIME ONE Stop: 06/18/20 21:07 Last Admin: 06/19/20 13:49 Dose: 50 mg Documented by: Dextrose/Water (Dextrose 50% In Water) Confirm Administered Dose 50 ml .ROUTE .STK-MED ONE Stop: 06/18/20 16:35 Last Admin: 06/18/20 16:40 Dose: 25 ml Documented by: Prochlorperazine Edisylate 10 (mg/ Sodium Chloride) 52 mls @ 150 mls/hr IV ONETIME ONE Stop: 06/18/20 16:10 Last Admin: 06/18/20 16:00 Dose: 150 mls/hr Documented by: Sodium Chloride (Normal Saline) 1,000 mls @ 1,000 mls/hr IV .BOLUS ONE Stop: 06/18/20 21:00 Last Admin: 06/19/20 13:55 Dose: 150 mls/hr Documented by: Sodium Chloride (Normal Saline) 500 mls @ 500 mls/hr IV .BOLUS ONE Stop: 06/19/20 05:34 Last Admin: 06/19/20 04:45 Dose: 500 mls/hr Documented by: Lorazepam (Ativan) Confirm Administered Dose 2 mg .ROUTE .STK-MED ONE Stop: 06/18/20 19:34 Last Admin: 06/18/20 20:23 Dose: Not Given Documented by: Lorazepam (Ativan) Confirm Administered Dose 2 mg .ROUTE .STK-MED ONE Stop: 06/19/20 03:46 Last Admin: 06/19/20 04:42 Dose: Not Given Documented by: Lorazepam (Ativan) Confirm Administered Dose 2 mg .ROUTE .STK-MED ONE Stop: 06/19/20 05:52 Last Admin: 06/19/20 06:18 Dose: Not Given Documented by: Lorazepam (Ativan) Confirm Administered Dose 2 mg .ROUTE .STK-MED ONE Stop: 06/19/20 07:58 Metoclopramide HCl (Reglan) 10 mg IV ONETIME ONE Stop: 06/18/20 16:56 Last Admin: 06/18/20 17:08 Dose: 10 mg Documented by: Metoclopramide HCl (Reglan) Confirm Administered Dose 10 mg .ROUTE .STK-MED ONE Stop: 06/18/20 17:11 Last Admin: 06/18/20 18:24 Dose: Not Given Documented by: Morphine Sulfate (Morphine) 4 mg IVPUSH ONETIME ONE Stop: 06/18/20 15:51 Last Admin: 06/18/20 15:56 Dose: 4 mg Documented by: Morphine Sulfate (Morphine) Confirm Administered Dose 4 mg .ROUTE .STK-MED ONE Stop: 06/18/20 16:05 Last Admin: 06/18/20 18:25 Dose: Not Given Documented by: Morphine Sulfate (Morphine) 4 mg IVPUSH ONETIME ONE Stop: 06/18/20 16:52 Last Admin: 06/18/20 17:08 Dose: 4 mg Documented by: Morphine Sulfate (Morphine) Confirm Administered Dose 4 mg .ROUTE .STK-MED ONE Stop: 06/18/20 17:11 Last Admin: 06/18/20 18:24 Dose: Not Given Documented by: Morphine Sulfate (Morphine) Confirm Administered Dose 4 mg .ROUTE .STK-MED ONE Stop: 06/18/20 18:06 Last Admin: 06/18/20 18:10 Dose: 4 mg Documented by: Morphine Sulfate (Morphine) 4 mg IVPUSH ONETIME ONE Stop: 06/18/20 18:25 Last Admin: 06/18/20 19:21 Dose: 4 mg Documented by: Morphine Sulfate (Morphine) 4 mg IVPUSH ONETIME ONE Stop: 06/18/20 19:16 Last Admin: 06/18/20 19:19 Dose: 4 mg Documented by: Morphine Sulfate (Morphine) 4 mg IVPUSH Q4H PRN PRN Reason: Pain (severe 7-10) Morphine Sulfate (Morphine) Confirm Administered Dose 4 mg .ROUTE .STK-MED ONE Stop: 06/18/20 22:49 Last Admin: 06/18/20 23:11 Dose: Not Given Documented by: Morphine Sulfate (Morphine) 2 mg IVPUSH ONETIME ONE Stop: 06/18/20 23:38 Last Admin: 06/18/20 23:56 Dose: 2 mg Documented by: Morphine Sulfate (Morphine) Confirm Administered Dose 2 mg .ROUTE .STK-MED ONE Stop: 06/18/20 23:45 Last Admin: 06/18/20 23:56 Dose: Not Given Documented by: Non-Formulary Medication (Gabapentin [Gralise]) 300 mg PO TID [facility] Last Admin: 06/18/20 21:49 Dose: Not Given Documented by: Non-Formulary Medication (Ondansetron [Zofran Odt]) 1 tab SL TID [facility] Last Admin: 06/18/20 21:50 Dose: Not Given Documented by: Prochlorperazine Edisylate (Compazine) Confirm Administered Dose 10 mg .ROUTE .STK-MED ONE Stop: 06/18/20 16:05 Last Admin: 06/18/20 18:25 Dose: Not Given Documented by: Sepsis Event Note - Evaluation Sepsis Screening Result: No Definite Risk - Focused Exam Vital Signs: Vital Signs Temp Temp Pulse Resp BP Pulse Ox Pulse Ox 06/19/20 12:00 98 06/19/20 09:30 98 06/19/20 08:00 36.6 C 99 16 124/73 98 06/19/20 04:00 36.7 C 124 H 16 133/83 96 - Problem List & Annotations (1) Metabolic acidosis SNOMED Code(s): 43572689 Code(s): E87.2 - ACIDOSIS Status: Acute Priority: High Current Visit: Yes (2) Acute alcohol intoxication SNOMED Code(s): 05704018, 84962605 Code(s): F10.929 - ALCOHOL USE, UNSPECIFIED WITH INTOXICATION, UNSPECIFIED Status: Acute Priority: High Current Visit: Yes - Problem List Review Problem List Initiated/Reviewed/Updated: Yes - My Orders Last 24 Hours: My Active Orders 06/19/20 Dinner Regular Diet [DIET] - Plan Plan:: Plan: 1. Acute pancreatitis-secondary to EtOH abuse. N.p.o. IVF. Pain control with IV morphine 2. EtOH abuse-the patient consumes at least a liter of vodka daily. Her last drink was this morning. On CIWA with Ativan IV as needed. Given her significant alcohol intake I have scheduled Librium 50 mg 3 times daily. Continue thiamine and folic acid. High risk for worsening symptoms. 3. Metabolic acidosis-this improved with additional 1L IVF bolus. IVF increased to 150 cc/h. Continue to trend BMP 4. Elevated lactic acid-improving with IVF. Continue to trend 5. Asthma-stable as needed albuterol 6. GERD/PUD-stable on Protonix 7. HTN-stable for now monitor. The patient is not adherent with blood pressure medications. She does not remember the name of the medication she has been prescribed. As needed hydralazine for SBP greater than 190, DBP greater than 100 8. Anxiety/depression-stable on BuSpar 9. Smoking habituation-nicotine patch 10. Chronic neck and back pain-on Neurontin 11. Migraines-as needed sumatriptan 12. DVT prophylaxis Lovenox 13. CODE STATUS full code discussed with patient 06/19/20 Repeat lipase and monitor liver enzymes in am. Continue Ciwa protocol and f/u inpatient alcohol treatment programs. F/u metabolic acidosis with continue hydration. HTN stable - continue monitoring. F/u labs in am.
[2020-06-19] MEDS: Thiamine 100 MG Tab PO SCH (19:33)
[2020-06-19] MEDS: traZODone 100 MG Tab PO SCH (19:33)
[2020-06-20] MEDS: busPIRone 10 MG Tab PO SCH ×4 (00:28→17:20)
[2020-06-20] MEDS: Morphine 4 MG/ML VIAL IVPUSH PRN ×2 (00:28→06:19)
[2020-06-20] MEDS: Sodium Chloride 0.9% 1,000 ML IV SCH (04:09)
[2020-06-20] MEDS: Enoxaparin 40 MG/0.4 ML Syringe SUBCUT SCH (07:43)
[2020-06-20] MEDS: Nicotine 21 MG/24 Hr Patch TRDERM SCH (07:46)
[2020-06-20] MEDS: Gabapentin 300 MG Cap PO SCH ×3 (07:47→19:50)
[2020-06-20] MEDS: Folic Acid 1 MG Tab PO SCH (07:47)
[2020-06-20] MEDS: Baclofen 10 MG Tab PO SCH ×3 (07:47→19:50)
[2020-06-20] MEDS: chlordiazePOXIDE 25 MG Cap PO SCH ×3 (07:48→19:49)
[2020-06-20] MEDS: Pantoprazole 40 MG Tab.CR PO SCH (07:48)
[2020-06-20] MEDS: Ondansetron 4 MG Tab.DIS PO SCH ×3 (07:48→19:50)
[2020-06-20] MEDS: Multivitamins with Iron/Calcium/Folic Acid/Minerals Tab PO SCH (07:48)
--- NOTE | 2020-06-20 09:47 | PCM.PN ---
- General Info Date of Service: 06/20/20 Subjective Update: Patient sleeping well and does appear improved. Patient has continued Right abdominal pain and discomfort. She notes the morphine has helped. She is willing to go to inpatient rehab. - Review of Systems General: Reports: Weakness HEENT: Reports: No Symptoms Pulmonary: Reports: No Symptoms Cardiovascular: Reports: No Symptoms Gastrointestinal: Reports: No Symptoms Genitourinary: Reports: No Symptoms Musculoskeletal: Reports: No Symptoms Skin: Reports: No Symptoms Neurological: Reports: No Symptoms Psychiatric: Reports: Anxiety, Agitation - Patient Data Vitals - Most Recent: Last Vital Signs Temp 36.6 C 06/20/20 07:30 Pulse 91 06/20/20 07:30 Resp 18 06/20/20 07:30 BP 142/94 H 06/20/20 07:30 Pulse Ox 93 L 06/20/20 07:34 Weight - Most Recent: 101.151 kg I&O - Last 24 Hours: Intake & Output 06/19/20 06/20/20 06/20/20 22:59 06:59 14:59 Intake Total 1800 1800 Balance 1800 1800 Lab Results Last 24 Hours: Laboratory Results - last 24 hr 06/19/20 06/20/20 06/20/20 Range/Units 09:10 07:20 07:20 WBC 3.9 L (4.0-11.0) K/uL RBC 3.88 (3.80-5.80) M/uL Hgb 11.5 (11.5-16.5) g/dL Hct 36.3 L (37.0-47.0) % MCV 94 (76-96) fL MCH 29.6 (27.0-32.0) pg MCHC 31.7 (31.0-35.0) g/dL RDW 16.5 H (11.0-16.0) % Plt Count 76 L D (150-500) K/uL MPV 10.7 H (6.0-10.0) fL Neut % (Auto) 52.5 (45.0-70.0) % Lymph % (Auto) 30.6 (20.0-40.0) % [place] % (Auto) 13.0 H (3.0-10.0) % Eos % (Auto) 3.6 (1.0-5.0) % Baso % (Auto) 0.3 (0.0-0.5) % Neut # (Auto) 2.02 (2.00-7.50) K/uL Lymph # (Auto) 1.18 L (1.50-4.00) K/uL [place] # (Auto) 0.50 (0.20-0.80) K/uL Eos # (Auto) 0.14 (0.04-0.40) K/uL Baso # (Auto) 0.01 L (0.02-0.10) K/uL Sodium 140 (136-145) mmol/L Potassium 3.8 (3.5-5.1) mmol/L Chloride 103 (98-107) mmol/L Carbon Dioxide 23.4 (21.0-32.0) mmol/L Anion Gap 17.4 H (5.0-15.0) mmol/L BUN 3 L D (8-26) mg/dL Creatinine 0.50 L D (0.55-1.02) mg/dL Est Cr Clr Drug Dosing 133.81 mL/min Estimated GFR (MDRD) > 60 (>60) MLS/MIN BUN/Creatinine Ratio 6.0 (6-25) Glucose 74 (74-100) mg/dL Calcium 7.5 L (8.5-10.1) mg/dL Total Bilirubin 0.9 (0.0-1.0) mg/dL AST 57 H (15-37) U/L ALT 61 (12-78) U/L Alkaline Phosphatase 50 (46-116) U/L Total Protein 6.2 L (6.4-8.2) g/dL Albumin 2.9 L (3.4-5.0) g/dL Globulin 3.3 (2.2-4.2) g/dL Albumin/Globulin Ratio 0.9 (0.8-2.0) SARS CoV-2 RNA Rapid ARIN Negative Med Orders - Current: Current Medications Albuterol (Ventolin Hfa) 0 gm INH DAILY PRN PRN Reason: Dyspnea Stop: 06/20/20 23:59 Baclofen (Lioresal) 10 mg PO TID [facility] Last Admin: 06/20/20 07:47 Dose: 10 mg Documented by: Buspirone HCl (Buspar) 15 mg PO Q6HR [facility] Last Admin: 06/20/20 06:18 Dose: 15 mg Documented by: Chlordiazepoxide HCl (Librium) 50 mg PO TID [facility] Last Admin: 06/20/20 07:48 Dose: 50 mg Documented by: Enoxaparin Sodium (Lovenox) 40 mg SUBCUT DAILY [facility] Last Admin: 06/20/20 07:43 Dose: 40 mg Documented by: Folic Acid (Folic Acid) 1 mg PO DAILY [facility] Last Admin: 06/20/20 07:47 Dose: 1 mg Documented by: Gabapentin (Neurontin) 300 mg PO TID [facility] Last Admin: 06/20/20 07:47 Dose: 300 mg Documented by: Hydralazine HCl (Apresoline) 10 mg IVPUSH Q8H PRN PRN Reason: SBP>190, DBP>100 Multivitamins/Minerals 10 ml/Thiamine HCl 100 mg/ Folic Acid 1 mg/ Magnesium Sulfate 3 gm/ Sodium Chloride 1,017.2 mls @ 1,000 mls/hr IV ASDIRECTED [facility] Last Admin: 06/18/20 16:40 Dose: 1,000 mls/hr Documented by: Sodium Chloride (Normal Saline) 1,000 mls @ 150 mls/hr IV ASDIRECTED [facility] Last Admin: 06/20/20 04:09 Dose: 150 mls/hr Documented by: Promethazine HCl 6.25 mg/ (Sodium Chloride) 50.25 mls @ 200 mls/hr IV Q6H PRN PRN Reason: Nausea/Vomiting Ibuprofen (Motrin) 200 mg PO Q6H PRN PRN Reason: mild pain/fever Last Admin: 06/19/20 01:11 Dose: 200 mg Documented by: Lorazepam (Ativan) 0 mg IVPUSH Q1H PRN; Protocol PRN Reason: Anxiety Last Admin: 06/19/20 16:55 Dose: 1 mg Documented by: Miscellaneous Information (Remove Patch) 1 ea TRDERM DAILY@2100 [facility] Last Admin: 06/19/20 21:00 Dose: 1 ea Documented by: Mometasone Furoate (Asmanex 220 Mcg) 0 puff INH DAILY PRN PRN Reason: Allergies Multivitamins/Minerals (Thera M Plus) 1 tab PO DAILY [facility] Last Admin: 06/20/20 07:48 Dose: 1 tab Documented by: Nicotine (Habitrol) 21 mg TRDERM DAILY [facility] Last Admin: 06/20/20 07:46 Dose: 21 mg Documented by: Ondansetron HCl (Zofran) 4 mg IV Q4H PRN PRN Reason: Nausea/Vomiting Last Admin: 06/19/20 19:30 Dose: 4 mg Documented by: Ondansetron HCl (Zofran Odt) 4 mg PO TID [facility] Last Admin: 06/20/20 07:48 Dose: 4 mg Documented by: Pantoprazole Sodium (Protonix) 40 mg PO DAILY [facility] Last Admin: 06/20/20 07:48 Dose: 40 mg Documented by: Sumatriptan Succinate (Imitrex) 50 mg PO BID PRN PRN Reason: headache Thiamine HCl (Vitamin B-1) 100 mg PO BEDTIME [facility] Last Admin: 06/19/20 19:33 Dose: 100 mg Documented by: Trazodone HCl (Trazodone) 100 mg PO BEDTIME [facility] Last Admin: 06/19/20 19:33 Dose: 100 mg Documented by: Discontinued Medications Acetaminophen (Tylenol) 650 mg PO Q4H PRN PRN Reason: Pain (Mild 1-3)/fever Buspirone HCl (Buspar) 15 mg PO Q6HR [facility] Last Admin: 06/19/20 13:53 Dose: 15 mg Documented by: Buspirone HCl (Buspar) Confirm Administered Dose 20 mg .ROUTE .STK-MED ONE Stop: 06/18/20 23:44 Last Admin: 06/19/20 13:48 Dose: 20 mg Documented by: Buspirone HCl (Buspar) Confirm Administered Dose 20 mg .ROUTE .STK-MED ONE Stop: 06/19/20 06:21 Last Admin: 06/19/20 22:19 Dose: Not Given Documented by: Buspirone HCl (Buspar) Confirm Administered Dose 10 mg .ROUTE .STK-MED ONE Stop: 06/19/20 13:45 Last Admin: 06/19/20 22:19 Dose: Not Given Documented by: Buspirone HCl (Buspar) Confirm Administered Dose 10 mg .ROUTE .STK-MED ONE Stop: 06/19/20 13:53 Last Admin: 06/19/20 22:19 Dose: Not Given Documented by: Chlordiazepoxide HCl (Librium) 50 mg PO ONETIME ONE Stop: 06/18/20 21:07 Last Admin: 06/19/20 13:49 Dose: 50 mg Documented by: Dextrose/Water (Dextrose 50% In Water) Confirm Administered Dose 50 ml .ROUTE .STK-MED ONE Stop: 06/18/20 16:35 Last Admin: 06/18/20 16:40 Dose: 25 ml Documented by: Prochlorperazine Edisylate 10 (mg/ Sodium Chloride) 52 mls @ 150 mls/hr IV ONETIME ONE Stop: 06/18/20 16:10 Last Admin: 06/18/20 16:00 Dose: 150 mls/hr Documented by: Sodium Chloride (Normal Saline) 1,000 mls @ 1,000 mls/hr IV .BOLUS ONE Stop: 06/18/20 21:00 Last Admin: 06/19/20 13:55 Dose: 150 mls/hr Documented by: Sodium Chloride (Normal Saline) 500 mls @ 500 mls/hr IV .BOLUS ONE Stop: 06/19/20 05:34 Last Admin: 06/19/20 04:45 Dose: 500 mls/hr Documented by: Lorazepam (Ativan) Confirm Administered Dose 2 mg .ROUTE .STK-MED ONE Stop: 06/18/20 19:34 Last Admin: 06/18/20 20:23 Dose: Not Given Documented by: Lorazepam (Ativan) Confirm Administered Dose 2 mg .ROUTE .STK-MED ONE Stop: 06/19/20 03:46 Last Admin: 06/19/20 04:42 Dose: Not Given Documented by: Lorazepam (Ativan) Confirm Administered Dose 2 mg .ROUTE .STK-MED ONE Stop: 06/19/20 05:52 Last Admin: 06/19/20 06:18 Dose: Not Given Documented by: Lorazepam (Ativan) Confirm Administered Dose 2 mg .ROUTE .STK-MED ONE Stop: 06/19/20 07:58 Last Admin: 06/19/20 22:19 Dose: Not Given Documented by: Metoclopramide HCl (Reglan) 10 mg IV ONETIME ONE Stop: 06/18/20 16:56 Last Admin: 06/18/20 17:08 Dose: 10 mg Documented by: Metoclopramide HCl (Reglan) Confirm Administered Dose 10 mg .ROUTE .STK-MED ONE Stop: 06/18/20 17:11 Last Admin: 06/18/20 18:24 Dose: Not Given Documented by: Morphine Sulfate (Morphine) 4 mg IVPUSH ONETIME ONE Stop: 06/18/20 15:51 Last Admin: 06/18/20 15:56 Dose: 4 mg Documented by: Morphine Sulfate (Morphine) Confirm Administered Dose 4 mg .ROUTE .STK-MED ONE Stop: 06/18/20 16:05 Last Admin: 06/18/20 18:25 Dose: Not Given Documented by: Morphine Sulfate (Morphine) 4 mg IVPUSH ONETIME ONE Stop: 06/18/20 16:52 Last Admin: 06/18/20 17:08 Dose: 4 mg Documented by: Morphine Sulfate (Morphine) Confirm Administered Dose 4 mg .ROUTE .STK-MED ONE Stop: 06/18/20 17:11 Last Admin: 06/18/20 18:24 Dose: Not Given Documented by: Morphine Sulfate (Morphine) Confirm Administered Dose 4 mg .ROUTE .STK-MED ONE Stop: 06/18/20 18:06 Last Admin: 06/18/20 18:10 Dose: 4 mg Documented by: Morphine Sulfate (Morphine) 4 mg IVPUSH ONETIME ONE Stop: 06/18/20 18:25 Last Admin: 06/18/20 19:21 Dose: 4 mg Documented by: Morphine Sulfate (Morphine) 4 mg IVPUSH ONETIME ONE Stop: 06/18/20 19:16 Last Admin: 06/18/20 19:19 Dose: 4 mg Documented by: Morphine Sulfate (Morphine) 4 mg IVPUSH Q4H PRN PRN Reason: Pain (severe 7-10) Morphine Sulfate (Morphine) Confirm Administered Dose 4 mg .ROUTE .STK-MED ONE Stop: 06/18/20 22:49 Last Admin: 06/18/20 23:11 Dose: Not Given Documented by: Morphine Sulfate (Morphine) 4 mg IVPUSH Q3H PRN PRN Reason: Pain (severe 7-10) Last Admin: 06/20/20 06:19 Dose: 4 mg Documented by: Morphine Sulfate (Morphine) 2 mg IVPUSH ONETIME ONE Stop: 06/18/20 23:38 Last Admin: 06/18/20 23:56 Dose: 2 mg Documented by: Morphine Sulfate (Morphine) Confirm Administered Dose 2 mg .ROUTE .STK-MED ONE Stop: 06/18/20 23:45 Last Admin: 06/18/20 23:56 Dose: Not Given Documented by: Non-Formulary Medication (Gabapentin [Gralise]) 300 mg PO TID [facility] Last Admin: 06/18/20 21:49 Dose: Not Given Documented by: Non-Formulary Medication (Ondansetron [Zofran Odt]) 1 tab SL TID [facility] Last Admin: 06/18/20 21:50 Dose: Not Given Documented by: Prochlorperazine Edisylate (Compazine) Confirm Administered Dose 10 mg .ROUTE .STK-MED ONE Stop: 06/18/20 16:05 Last Admin: 06/18/20 18:25 Dose: Not Given Documented by: Trazodone HCl (Trazodone) 100 mg PO DAILY [facility] Last Admin: 06/19/20 07:29 Dose: 100 mg Documented by: - Exam General: Alert, Oriented, Cooperative HEENT: Pupils Equal, Pupils Reactive, EOMI Lungs: Clear to Auscultation, Normal Respiratory Effort Cardiovascular: Regular Rate, Regular Rhythm GI/Abdominal Exam: Normal Bowel Sounds, Soft, Tender (right upper side) Back Exam: Normal Inspection Extremities: Normal Inspection Sepsis Event Note - Evaluation Sepsis Screening Result: No Definite Risk - Focused Exam Vital Signs: Vital Signs Temp Pulse Resp BP Pulse Ox 06/20/20 07:34 93 L 06/20/20 07:30 36.6 C 91 18 142/94 H 93 L 06/20/20 04:00 36.9 C 91 18 126/67 92 L - Problem List & Annotations (1) Metabolic acidosis SNOMED Code(s): 79194202 Code(s): E87.2 - ACIDOSIS Status: Acute Priority: High Current Visit: Yes (2) Acute alcohol intoxication SNOMED Code(s): 74467350, 16194167 Code(s): F10.929 - ALCOHOL USE, UNSPECIFIED WITH INTOXICATION, UNSPECIFIED Status: Acute Priority: High Current Visit: Yes (3) Alcohol withdrawal syndrome SNOMED Code(s): 673692213 Code(s): F10.239 - ALCOHOL DEPENDENCE WITH WITHDRAWAL, UNSPECIFIED Status: Acute Priority: High Current Visit: Yes Qualifiers: Complication of substance-induced condition: with unspecified complication Qualified Code(s): F10.239 - Alcohol dependence with withdrawal, unspecified (4) Pancreatitis, alcoholic, acute SNOMED Code(s): 713146422 Code(s): K85.20 - ALCOHOL INDUCED ACUTE PANCREATITIS WITHOUT NECROSIS OR INFCT Status: Suspected Priority: High Current Visit: Yes Qualifiers: Acute pancreatitis complication: no infection or necrosis Qualified Code(s): K85.20 - Alcohol induced acute pancreatitis without necrosis or infection - Problem List Review Problem List Initiated/Reviewed/Updated: Yes - My Orders Last 24 Hours: My Active Orders 06/19/20 Dinner Regular Diet [DIET] - Plan Plan:: Plan: 1. Acute pancreatitis-secondary to EtOH abuse. N.p.o. IVF. Pain control with IV morphine 2. EtOH abuse-the patient consumes at least a liter of vodka daily. Her last drink was this morning. On CIWA with Ativan IV as needed. Given her significant alcohol intake I have scheduled Librium 50 mg 3 times daily. Continue thiamine and folic acid. High risk for worsening symptoms. 3. Metabolic acidosis-this improved with additional 1L IVF bolus. IVF increased to 150 cc/h. Continue to trend BMP 4. Elevated lactic acid-improving with IVF. Continue to trend 5. Asthma-stable as needed albuterol 6. GERD/PUD-stable on Protonix 7. HTN-stable for now monitor. The patient is not adherent with blood pressure medications. She does not remember the name of the medication she has been prescribed. As needed hydralazine for SBP greater than 190, DBP greater than 100 8. Anxiety/depression-stable on BuSpar 9. Smoking habituation-nicotine patch 10. Chronic neck and back pain-on Neurontin 11. Migraines-as needed sumatriptan 12. DVT prophylaxis Lovenox 13. CODE STATUS full code discussed with patient 06/19/20 Repeat lipase and monitor liver enzymes in am. Continue Ci[facility] protocol and f/u inpatient alcohol treatment programs. F/u metabolic acidosis with continue hydration. HTN stable - continue monitoring. F/u labs in am. 06/20/20 F/u labs in am. Continue CIWAA. Planning for discharge to inpatient alcohol rehab - [place]. HTN stable but need monitoring due to recent isolated elevation.
[2020-06-20] MEDS: Ibuprofen 200 MG Tab PO PRN (10:30)
[2020-06-20] MEDS ORDERED: busPIRone 10 MG Tab ONE (13:03)
[2020-06-20] MEDS: traZODone 100 MG Tab PO SCH (19:50)
[2020-06-20] MEDS: Thiamine 100 MG Tab PO SCH (19:50)
[2020-06-20] MEDS ORDERED: chlordiazePOXIDE 25 MG Cap ONE (19:52)
[2020-06-20] MEDS: LORazepam 2 MG/ML SDV IVPUSH PRN (20:07)
[2020-06-21] MEDS: busPIRone 10 MG Tab PO SCH ×2 (06:53→12:29)
[2020-06-21] MEDS: Nicotine 21 MG/24 Hr Patch TRDERM SCH (07:38)
[2020-06-21] MEDS: chlordiazePOXIDE 25 MG Cap PO SCH ×2 (07:39→14:11)
[2020-06-21] MEDS: Baclofen 10 MG Tab PO SCH ×2 (07:39→14:10)
[2020-06-21] MEDS: Enoxaparin 40 MG/0.4 ML Syringe SUBCUT SCH (07:39)
[2020-06-21] MEDS: Folic Acid 1 MG Tab PO SCH (07:39)
[2020-06-21] MEDS: Ondansetron 4 MG Tab.DIS PO SCH ×2 (07:40→14:11)
[2020-06-21] MEDS: Gabapentin 300 MG Cap PO SCH ×2 (07:40→14:11)
[2020-06-21] MEDS: Multivitamins with Iron/Calcium/Folic Acid/Minerals Tab PO SCH (07:40)
[2020-06-21] MEDS: Pantoprazole 40 MG Tab.CR PO SCH (07:40)
[2020-06-21] MEDS: Mupirocin Oint 22 GM Tube TOP SCH ×2 (09:47→14:09)
[2020-06-21] MEDS ORDERED: amLODIPine 10 MG Tab PO SCH (11:00)
[2020-06-21 11:34] VITALS: BP 154/107
[2020-06-21 11:37] VITALS: PULSE 78
--- NOTE | 2020-06-21 14:53 | PCM.DCSUM1 ---
Discharge Summary - Discharge Data Discharge Date: 06/21/20 Discharge Disposition: Home, Self-Care 01 Condition: Good - Referral to Home Health Primary Care Physician: PCP None - Discharge Diagnosis/Problem(s) (1) Metabolic acidosis SNOMED Code(s): 03645970 ICD Code: E87.2 - ACIDOSIS Status: Acute Priority: High (2) Acute alcohol intoxication SNOMED Code(s): 00521296, 73689360 ICD Code: F10.929 - ALCOHOL USE, UNSPECIFIED WITH INTOXICATION, UNSPECIFIED Status: Acute Priority: High (3) Alcohol withdrawal syndrome SNOMED Code(s): 425553089 ICD Code: F10.239 - ALCOHOL DEPENDENCE WITH WITHDRAWAL, UNSPECIFIED Status: Acute Priority: High Qualifiers: Complication of substance-induced condition: with unspecified complication Qualified Code(s): F10.239 - Alcohol dependence with withdrawal, unspecified (4) Pancreatitis, alcoholic, acute SNOMED Code(s): 732322876 ICD Code: K85.20 - ALCOHOL INDUCED ACUTE PANCREATITIS WITHOUT NECROSIS OR INFCT Status: Suspected Priority: High Qualifiers: Acute pancreatitis complication: no infection or necrosis Qualified Code(s): K85.20 - Alcohol induced acute pancreatitis without necrosis or infection - Discharge Plan *PRESCRIPTION DRUG MONITORING PROGRAM REVIEWED*: Not Applicable *COPY OF PRESCRIPTION DRUG MONITORING REPORT IN PATIENT TRINO: Not Applicable Prescriptions/Med Rec: chlordiazePOXIDE [Librium] 50 mg PO BID #20 cap Home Medications: Home Meds Gabapentin [Gralise] 300 mg PO TID 05/10/13 [History] busPIRone HCl [busPIRone] 15 mg PO Q6HR 05/10/13 [History] SUMAtriptan succinate [Imitrex] 50 mg PO BID PRN 12/21/13 [History] Albuterol [Ventolin HFA] 2 sprays IN DAILY PRN 08/11/19 [History] Baclofen 10 mg PO TID 08/11/19 [History] Fluticasone Propionate [Flovent] 2 spray INH DAILY PRN 08/11/19 [History] Multivitamin [Daily Chente] 1 tab PO DAILY 08/11/19 [History] traZODone HCl [Trazodone HCl] 100 mg PO DAILY 08/11/19 [History] Ondansetron [Zofran Odt] 1 tab SL TID 09/04/19 [History] Pantoprazole 1 tab PO DAILY 09/04/19 [History] Folic Acid 1 mg IV ASDIRECTED mdv 06/21/20 [Rx] Folic Acid 1 mg PO DAILY tablet 06/21/20 [Rx] Ibuprofen [Motrin] 200 mg PO Q6H PRN tablet 06/21/20 [Rx] MVI, Adult with Vitamin K [Infuvite Adult] 10 ml IV ASDIRECTED sdv 06/21/20 [Rx] Magnesium Sulfate [Magnesium Sulfate 50%] 3 gm IV ASDIRECTED sdv 06/21/20 [Rx] Mupirocin Oint [Bactroban Oint] 0 gm TOP TID tube 06/21/20 [Rx] Nicotine [Habitrol] 21 mg TRDERM DAILY patch 06/21/20 [Rx] Remove Patch 1 ea TRDERM DAILY@2100 each 06/21/20 [Rx] Thiamine [Vitamin B-1] 100 mg PO BEDTIME tablet 06/21/20 [Rx] busPIRone [Buspar] 15 mg PO Q6HR tablet 06/21/20 [Rx] chlordiazePOXIDE [Librium] 50 mg PO BID #20 cap 06/21/20 [Rx] Patient Handouts: MRSA Infection, Self-Care, Adult, Chlordiazepoxide capsules, Flank Pain, Adult, [id number], Amlodipine tablets Forms: ED Department Discharge Referrals: PCP,None [Primary Care Provider] - - Discharge Summary/Plan Comment DC Time >30 min.: No Discharge Summary/Plan Comment: Patient agrees to follow up and go to inpatient alcohol rehab. Jaye setting up follow up outpatient. Patient to continue on current alcohol cessation and management. F/u in clinic this week. - Patient Data Vitals - Most Recent: Last Vital Signs Temp 36.5 C 06/21/20 11:36 Pulse 78 06/21/20 11:36 Resp 24 H 06/21/20 11:36 BP 154/107 H 06/21/20 11:36 Pulse Ox 96 06/21/20 11:36 Weight - Most Recent: 99.518 kg I&O - Last 24 hours: Intake & Output 06/20/20 06/21/20 06/21/20 22:59 06:59 14:59 Intake Total 1560 Output Total 1400 Balance 160 MCKAY Results - Last 24 hrs: Microbiology 06/18/20 14:30 MRSA Culture - Final Nares, Unspecified (Mrsa) Staphylococcus Aureus Med Orders - Current: Current Medications Amlodipine Besylate (Norvasc) 10 mg PO BEDTIME [facility] Last Admin: 06/21/20 11:30 Dose: 10 mg Documented by: Baclofen (Lioresal) 10 mg PO TID [facility] Last Admin: 06/21/20 14:10 Dose: 10 mg Documented by: Buspirone HCl (Buspar) 15 mg PO Q6HR [facility] Last Admin: 06/21/20 12:29 Dose: 15 mg Documented by: Chlordiazepoxide HCl (Librium) 50 mg PO TID [facility] Last Admin: 06/21/20 14:11 Dose: 50 mg Documented by: Enoxaparin Sodium (Lovenox) 40 mg SUBCUT DAILY [facility] Last Admin: 06/21/20 07:39 Dose: 40 mg Documented by: Folic Acid (Folic Acid) 1 mg PO DAILY [facility] Last Admin: 06/21/20 07:39 Dose: 1 mg Documented by: Gabapentin (Neurontin) 300 mg PO TID [facility] Last Admin: 06/21/20 14:11 Dose: 300 mg Documented by: Hydralazine HCl (Apresoline) 10 mg IVPUSH Q8H PRN PRN Reason: SBP>190, DBP>100 Multivitamins/Minerals 10 ml/Thiamine HCl 100 mg/ Folic Acid 1 mg/ Magnesium Sulfate 3 gm/ Sodium Chloride 1,017.2 mls @ 1,000 mls/hr IV ASDIRECTED [facility] Last Admin: 06/18/20 16:40 Dose: 1,000 mls/hr Documented by: Sodium Chloride (Normal Saline) 1,000 mls @ 150 mls/hr IV ASDIRECTED [facility] Last Admin: 06/20/20 04:09 Dose: 150 mls/hr Documented by: Promethazine HCl 6.25 mg/ (Sodium Chloride) 50.25 mls @ 200 mls/hr IV Q6H PRN PRN Reason: Nausea/Vomiting Ibuprofen (Motrin) 200 mg PO Q6H PRN PRN Reason: mild pain/fever Last Admin: 06/20/20 10:30 Dose: 200 mg Documented by: Lorazepam (Ativan) 0 mg IVPUSH Q1H PRN; Protocol PRN Reason: Anxiety Last Admin: 06/20/20 20:07 Dose: 1 mg Documented by: Miscellaneous Information (Remove Patch) 1 ea TRDERM DAILY@2100 [facility] Last Admin: 06/20/20 20:00 Dose: 1 ea Documented by: Mometasone Furoate (Asmanex 220 Mcg) 0 puff INH DAILY PRN PRN Reason: Allergies Multivitamins/Minerals (Thera M Plus) 1 tab PO DAILY [facility] Last Admin: 06/21/20 07:40 Dose: 1 tab Documented by: Mupirocin (Bactroban Oint) 0 gm TOP TID [facility] Stop: 06/27/20 20:01 Last Admin: 06/21/20 14:09 Dose: 1 applicful Documented by: Nicotine (Habitrol) 21 mg TRDERM DAILY [facility] Last Admin: 06/21/20 07:38 Dose: 21 mg Documented by: Ondansetron HCl (Zofran) 4 mg IV Q4H PRN PRN Reason: Nausea/Vomiting Last Admin: 06/19/20 19:30 Dose: 4 mg Documented by: Ondansetron HCl (Zofran Odt) 4 mg PO TID [facility] Last Admin: 06/21/20 14:11 Dose: 4 mg Documented by: Pantoprazole Sodium (Protonix) 40 mg PO DAILY [facility] Last Admin: 06/21/20 07:40 Dose: 40 mg Documented by: Sumatriptan Succinate (Imitrex) 50 mg PO BID PRN PRN Reason: headache Thiamine HCl (Vitamin B-1) 100 mg PO BEDTIME [facility] Last Admin: 06/20/20 19:50 Dose: 100 mg Documented by: Trazodone HCl (Trazodone) 100 mg PO BEDTIME [facility] Last Admin: 06/20/20 19:50 Dose: 100 mg Documented by: Discontinued Medications Acetaminophen (Tylenol) 650 mg PO Q4H PRN PRN Reason: Pain (Mild 1-3)/fever Albuterol (Ventolin Hfa) 0 gm INH DAILY PRN PRN Reason: Dyspnea Stop: 06/20/20 23:59 Buspirone HCl (Buspar) 15 mg PO Q6HR [facility] Last Admin: 06/19/20 13:53 Dose: 15 mg Documented by: Buspirone HCl (Buspar) Confirm Administered Dose 20 mg .ROUTE .STK-MED ONE Stop: 06/18/20 23:44 Last Admin: 06/19/20 13:48 Dose: 20 mg Documented by: Buspirone HCl (Buspar) Confirm Administered Dose 20 mg .ROUTE .STK-MED ONE Stop: 06/19/20 06:21 Last Admin: 06/19/20 22:19 Dose: Not Given Documented by: Buspirone HCl (Buspar) Confirm Administered Dose 10 mg .ROUTE .STK-MED ONE Stop: 06/19/20 13:45 Last Admin: 06/19/20 22:19 Dose: Not Given Documented by: Buspirone HCl (Buspar) Confirm Administered Dose 10 mg .ROUTE .STK-MED ONE Stop: 06/19/20 13:53 Last Admin: 06/19/20 22:19 Dose: Not Given Documented by: Buspirone HCl (Buspar) Confirm Administered Dose 10 mg .ROUTE .STK-MED ONE Stop: 06/20/20 13:04 Last Admin: 06/20/20 13:05 Dose: Not Given Documented by: Chlordiazepoxide HCl (Librium) 50 mg PO ONETIME ONE Stop: 06/18/20 21:07 Last Admin: 06/19/20 13:49 Dose: 50 mg Documented by: Chlordiazepoxide HCl (Librium) Confirm Administered Dose 25 mg .ROUTE .STK-MED ONE Stop: 06/20/20 19:53 Last Admin: 06/20/20 20:04 Dose: Not Given Documented by: Dextrose/Water (Dextrose 50% In Water) Confirm Administered Dose 50 ml .ROUTE .STK-MED ONE Stop: 06/18/20 16:35 Last Admin: 06/18/20 16:40 Dose: 25 ml Documented by: Prochlorperazine Edisylate 10 (mg/ Sodium Chloride) 52 mls @ 150 mls/hr IV ONETIME ONE Stop: 06/18/20 16:10 Last Admin: 06/18/20 16:00 Dose: 150 mls/hr Documented by: Sodium Chloride (Normal Saline) 1,000 mls @ 1,000 mls/hr IV .BOLUS ONE Stop: 06/18/20 21:00 Last Admin: 06/19/20 13:55 Dose: 150 mls/hr Documented by: Sodium Chloride (Normal Saline) 500 mls @ 500 mls/hr IV .BOLUS ONE Stop: 06/19/20 05:34 Last Admin: 06/19/20 04:45 Dose: 500 mls/hr Documented by: Lorazepam (Ativan) Confirm Administered Dose 2 mg .ROUTE .STK-MED ONE Stop: 06/18/20 19:34 Last Admin: 06/18/20 20:23 Dose: Not Given Documented by: Lorazepam (Ativan) Confirm Administered Dose 2 mg .ROUTE .STK-MED ONE Stop: 06/19/20 03:46 Last Admin: 06/19/20 04:42 Dose: Not Given Documented by: Lorazepam (Ativan) Confirm Administered Dose 2 mg .ROUTE .STK-MED ONE Stop: 06/19/20 05:52 Last Admin: 06/19/20 06:18 Dose: Not Given Documented by: Lorazepam (Ativan) Confirm Administered Dose 2 mg .ROUTE .STK-MED ONE Stop: 06/19/20 07:58 Last Admin: 06/19/20 22:19 Dose: Not Given Documented by: Metoclopramide HCl (Reglan) 10 mg IV ONETIME ONE Stop: 06/18/20 16:56 Last Admin: 06/18/20 17:08 Dose: 10 mg Documented by: Metoclopramide HCl (Reglan) Confirm Administered Dose 10 mg .ROUTE .STK-MED ONE Stop: 06/18/20 17:11 Last Admin: 06/18/20 18:24 Dose: Not Given Documented by: Morphine Sulfate (Morphine) 4 mg IVPUSH ONETIME ONE Stop: 06/18/20 15:51 Last Admin: 06/18/20 15:56 Dose: 4 mg Documented by: Morphine Sulfate (Morphine) Confirm Administered Dose 4 mg .ROUTE .STK-MED ONE Stop: 06/18/20 16:05 Last Admin: 06/18/20 18:25 Dose: Not Given Documented by: Morphine Sulfate (Morphine) 4 mg IVPUSH ONETIME ONE Stop: 06/18/20 16:52 Last Admin: 06/18/20 17:08 Dose: 4 mg Documented by: Morphine Sulfate (Morphine) Confirm Administered Dose 4 mg .ROUTE .STK-MED ONE Stop: 06/18/20 17:11 Last Admin: 06/18/20 18:24 Dose: Not Given Documented by: Morphine Sulfate (Morphine) Confirm Administered Dose 4 mg .ROUTE .STK-MED ONE Stop: 06/18/20 18:06 Last Admin: 06/18/20 18:10 Dose: 4 mg Documented by: Morphine Sulfate (Morphine) 4 mg IVPUSH ONETIME ONE Stop: 06/18/20 18:25 Last Admin: 06/18/20 19:21 Dose: 4 mg Documented by: Morphine Sulfate (Morphine) 4 mg IVPUSH ONETIME ONE Stop: 06/18/20 19:16 Last Admin: 06/18/20 19:19 Dose: 4 mg Documented by: Morphine Sulfate (Morphine) 4 mg IVPUSH Q4H PRN PRN Reason: Pain (severe 7-10) Morphine Sulfate (Morphine) Confirm Administered Dose 4 mg .ROUTE .STK-MED ONE Stop: 06/18/20 22:49 Last Admin: 06/18/20 23:11 Dose: Not Given Documented by: Morphine Sulfate (Morphine) 4 mg IVPUSH Q3H PRN PRN Reason: Pain (severe 7-10) Last Admin: 06/20/20 06:19 Dose: 4 mg Documented by: Morphine Sulfate (Morphine) 2 mg IVPUSH ONETIME ONE Stop: 06/18/20 23:38 Last Admin: 06/18/20 23:56 Dose: 2 mg Documented by: Morphine Sulfate (Morphine) Confirm Administered Dose 2 mg .ROUTE .STK-MED ONE Stop: 06/18/20 23:45 Last Admin: 06/18/20 23:56 Dose: Not Given Documented by: Non-Formulary Medication (Gabapentin [Gralise]) 300 mg PO TID [facility] Last Admin: 06/18/20 21:49 Dose: Not Given Documented by: Non-Formulary Medication (Ondansetron [Zofran Odt]) 1 tab SL TID [facility] Last Admin: 06/18/20 21:50 Dose: Not Given Documented by: Prochlorperazine Edisylate (Compazine) Confirm Administered Dose 10 mg .ROUTE .STK-MED ONE Stop: 06/18/20 16:05 Last Admin: 06/18/20 18:25 Dose: Not Given Documented by: Trazodone HCl (Trazodone) 100 mg PO DAILY [facility] Last Admin: 06/19/20 07:29 Dose: 100 mg Documented by: *Q Meaningful Use (DIS) - VTE *Q VTE Mechanical Contraindications *Q: At Risk for Falls - Stroke *Q Aspirin Contraindications Stroke *Q: Other (Use Special Inst) - AMI *Q Aspirin Contraindications AMI *Q: Alternative [place] Request PT Statin Contraindications AMI *Q: Alternative [place] Request PT
== END 2020-06-21 16:30 | disposition home or self-care (01) | DRG 896 ==
LOC: LB.ED 15:02 → LB.MS 18:03 → UNDOADMIN 18:15 → LB.ED 18:15
PROVIDERS: ADMIT Nurse Practitioner; ATTEND Nurse Practitioner
DX: F10.239 Alcohol dependence with withdrawal, unspecified (principal); K85.20 Alcohol induced acute pancreatitis without necrosis or infection; E87.2 Acidosis; J45.909 Unspecified asthma, uncomplicated; K21.9 Gastro-esophageal reflux disease without esophagitis; I10 Essential (primary) hypertension; Z20.828 Contact with and (suspected) exposure to other viral communicable diseases; K27.9 Peptic ulcer, site unspecified, unspecified as acute or chronic, without hemorrhage or perforation; F41.9 Anxiety disorder, unspecified; F32.9 Major depressive disorder, single episode, unspecified; M54.2 Cervicalgia; M54.9 Dorsalgia, unspecified; G89.29 Other chronic pain; G43.909 Migraine, unspecified, not intractable, without status migrainosus; F10.229 Alcohol dependence with intoxication, unspecified; M19.90 Unspecified osteoarthritis, unspecified site; F17.210 Nicotine dependence, cigarettes, uncomplicated; Y90.8 Blood alcohol level of 240 mg/100 ml or more; Z88.5 Allergy status to narcotic agent; Z79.899 Other long term (current) drug therapy
CPT/HCPCS: 36415; 36600; 80053; 80307; 82803; 83605; 83690; 83735; 84100; 85025; 87070; 87077; 87186; 96365; 96366; 96368; 96375; 99284-25; A9270-GY; J0780; J1650; J2060; J2270; J2405; J2765; J3411; J3475; J3490; J7030; J7040; U0002

== ENCOUNTER 2020-06-28 09:05 | Emergency (ER) | payer MEDICAID, OTHER ==
[2020-06-28 10:34] VITALS: BP 100/81; PULSE 117
--- NOTE | 2020-06-28 11:40 | CR ---
CLINICAL DATA: Fall. LEFT ANKLE, 28 JUNE 2020: Comparison is made to a prior exam dated 03 March 2007. There is soft tissue swelling over the lateral malleolus and anterior to the ankle joint. No acute fracture or dislocation. No lytic or blastic bone lesions. There are plantar and posterior calcaneal spurs. [facility]: [id number] [facility]
--- NOTE | 2020-06-28 12:28 | ER ---
REASON FOR EMERGENCY ROOM VISIT: Right ankle injury. HISTORY: This 49-year-old woman with an extensive history of alcoholism and related complications, comes in following an injury to her right ankle. Last night she was coming down the stairs and suffered a fall during which she twisted her right ankle and felt a popping sensation. She treated this with ice and elevation and still has some swelling and pain this morning and decided she wanted to come in to have a check to rule out a fracture. PAST MEDICAL HISTORY: Significant for: 1. Alcoholism with significant complications including seizures, hyponatremia, and alcoholic pancreatitis as well as alcohol withdrawal syndrome. 2. Back pain. 3. Migraine headaches. 4. Seizure disorder. ALLERGIES: TO HYDROCODONE AND OXYCODONE. PHYSICAL EXAMINATION: Her left ankle reveals some mild swelling particularly medially with a small area of ecchymosis overlying the medial malleolus. She has some pain to passive range of motion with no evidence of joint instability and no bony crepitus. IMAGING: X-rays reveal no evidence of fracture or dislocation. IMPRESSION: Left ankle sprain. PLAN: An ankle brace was applied. She was instructed to continue with ice and elevation for the next day or 2 and to bear weight on this gingerly as she can tolerate it over the next few days. She can go ahead and use crutches and that might be optimal at least for the next couple of days until her pain and swelling subside. She could use ibuprofen or Tylenol as needed for pain. All questions were answered. She understands and agrees with this plan. MARK /[id number]
== END 2020-06-28 11:00 | disposition home or self-care (01) ==
LOC: LB.ED 09:05
DX: S93.402A Sprain of unspecified ligament of left ankle, initial encounter (principal); Z88.5 Allergy status to narcotic agent; X50.1XXA Overexertion from prolonged static or awkward postures, initial encounter
CPT/HCPCS: 73610-LT; 99283

== ENCOUNTER 2020-10-09 13:15 | Emergency (ER) | payer MEDICAID ==
[2020-10-09] MEDS ORDERED: MAGNESIUM SULFATE IV ONE ×5 (13:16)
[2020-10-09] MEDS ORDERED: MVI IV ONE ×5 (13:16)
[2020-10-09] MEDS ORDERED: VITAMIN K IV ONE ×5 (13:16)
[2020-10-09] MEDS ORDERED: THIAMINE IV ONE ×5 (13:16)
[2020-10-09] MEDS ORDERED: [UNRECOGNIZED DRUG - OTHER] IV ONE ×5 (13:16)
[2020-10-09] MEDS ORDERED: GI Cocktail Oral Solution 30 ML PO ONE (14:04)
[2020-10-09] MEDS ORDERED: MVI, Adult with Vitamin K 10 ML, Thiamine 100 MG, Folic Acid 1 MG, Magnesium Sulfate 3 ... IV SCH ×5 (14:15)
[2020-10-09] MEDS: HYDROmorphone 2 MG/ML SDV IVPUSH ONE ×2 (14:42→16:37)
[2020-10-09] MEDS ORDERED: HYDROmorphone 2 MG/ML SDV ONE (14:47)
[2020-10-09 15:39] VITALS: BP 147/100; PULSE 105
[2020-10-09] MEDS ORDERED: Ondansetron 4 MG/2 ML SDV IVPUSH ONE (16:04)
[2020-10-09] MEDS: Ondansetron 4 MG/2 ML SDV ONE ×2 (16:04→16:05)
[2020-10-09] MEDS ORDERED: HYDROmorphone 2 MG/ML SDV IVPUSH ONE (16:36)
[2020-10-09] MEDS: HYDROmorphone 2 MG/ML SDV ONE ×2 (16:38→17:35)
[2020-10-09] MEDS ORDERED: Naloxone 2 MG/2 ML Syringe IVPUSH PRN ×2 (16:59→17:33)
[2020-10-09] MEDS ORDERED: EPINEPHrine 1 MG/ML 30 ML MDV IVPUSH ONE (17:00)
--- NOTE | 2020-10-09 17:45 | CR ---
DATE OF SERVICE: 10/09/2020 CLINICAL DATA: Shortness of breath. AP CHEST: No priors. The heart size is normal. The lungs are clear. No pneumothorax. No pleural effusions. No evidence of acute intrathoracic disease. [id number] [facility]
--- NOTE | 2020-10-09 21:42 | EDM.PDOC ---
ED HPI GENERAL MEDICAL PROBLEM - General Chief Complaint: Abdominal Pain Stated Complaint: ALCOHOL INTOXICATION Time Seen by Provider: 10/09/20 13:40 Source of Information: Reports: Patient - History of Present Illness INITIAL COMMENTS - FREE TEXT/NARRATIVE: 50 year old female bought to ED by ambulance with c/o upper abdominal pain ,Nausea & intractable vomiting & ETOH abuse - The pain was located in upper quadrant ,sharp, diffuse & 8/10 ,No radiating . Nothing makes pain better or worse Patient reports drinking one litter of vodka every day. last drink was at noon today. 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 CLERK: Reports: Other (see below) (zofran) Upper Abdomen Pain Score (Numeric/FACES): 7 - Related Data Allergies Allergy/AdvReac Type Severity Reaction Status Date / Time hydrocodone Allergy Rash Verified 10/09/20 14:30 oxycodone [Oxycodone] Allergy Hives Verified 10/09/20 14:30 Home Meds: Home Meds Gabapentin [Gralise] 300 mg PO TID 05/10/13 [History] busPIRone HCl [busPIRone] 15 mg PO Q6HR 05/10/13 [History] SUMAtriptan succinate [Imitrex] 50 mg PO BID PRN 12/21/13 [History] Albuterol [Ventolin HFA] 2 sprays IN DAILY PRN 08/11/19 [History] Baclofen 10 mg PO TID 08/11/19 [History] Fluticasone Propionate [Flovent] 2 spray INH DAILY PRN 08/11/19 [History] Multivitamin [Daily Chente] 1 tab PO DAILY 08/11/19 [History] traZODone HCl [Trazodone HCl] 100 mg PO DAILY 08/11/19 [History] Ondansetron [Zofran Odt] 1 tab SL TID 09/04/19 [History] Pantoprazole 1 tab PO DAILY 09/04/19 [History] Folic Acid 1 mg IV ASDIRECTED mdv 06/21/20 [Rx] Folic Acid 1 mg PO DAILY tablet 06/21/20 [Rx] Ibuprofen [Motrin] 200 mg PO Q6H PRN tablet 06/21/20 [Rx] MVI, Adult with Vitamin K [Infuvite Adult] 10 ml IV ASDIRECTED sdv 06/21/20 [Rx] Magnesium Sulfate [Magnesium Sulfate 50%] 3 gm IV ASDIRECTED sdv 06/21/20 [Rx] Mupirocin Oint [Bactroban Oint] 0 gm TOP TID tube 06/21/20 [Rx] Nicotine [Habitrol] 21 mg TRDERM DAILY patch 06/21/20 [Rx] Remove Patch 1 ea TRDERM DAILY@2100 each 06/21/20 [Rx] Thiamine [Vitamin B-1] 100 mg PO BEDTIME tablet 06/21/20 [Rx] busPIRone [Buspar] 15 mg PO Q6HR tablet 06/21/20 [Rx] chlordiazePOXIDE [Librium] 50 mg PO BID #20 cap 06/21/20 [Rx] Past Medical History HEENT 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: Sinusitis Other HEENT History: wears glasses Cardiovascular 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: Hypertension Respiratory 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: Asthma Gastrointestinal 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: GERD, Pancreatitis, Other (See Below) Other Gastrointestinal History: hx ulcers several years ago CHARGE AUTHORIZER 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: Other CHARGE AUTHORIZER History: hysterectomy - cysts Musculoskeletal 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: Arthritis, Back Pain, Chronic Neurological 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: Migraines Other Neuro History: when detoxing Psychiatric 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: Addiction, Anxiety, Depression Other Psychiatric History: alcohol abuse and addiction Dermatologic 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: Eczema - Infectious Disease History Infectious Disease 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: Chicken Pox - Past Surgical History Other GI Surgeries/Procedures: pancreatitis Social & Family History - Family History Family Medical History: No Pertinent Family History - Tobacco Use Years of Tobacco use: 30 Packs/Tins Daily: 0.5 - Caffeine Use Caffeine Use: Reports: Soda - Alcohol Use Days Per Week of Alcohol Use: 7 Number of Drinks Per Day: 10 Total Drinks Per Week: 70 Date of Last Drink: 10/09/20 Time of Last Drink: 12:00 - Recreational Drug Use Recreational Drug Use: Yes Drug Use in Last 12 Months: Yes Recreational Drug Type: Reports: Marijuana/Hashish Recreational Drug Use Frequency: Weekly - Living Situation & Occupation Living situation: Reports: Occupation: Unemployed ED ROS GENERAL - Review of Systems Review Of Systems: See Below Constitutional: Reports: No Symptoms HEENT: Reports: No Symptoms Respiratory: Reports: No Symptoms Cardiovascular: Reports: No Symptoms GI/Abdominal: Reports: Abdominal Pain, Vomiting, Other (The patient reports upper abdominal pain & epigastic pain ) Musculoskeletal: Reports: No Symptoms Skin: Reports: No Symptoms Neurological: Reports: No Symptoms, Other Psychiatric: Reports: No Symptoms ED EXAM, GENERAL - Physical Exam Exam: See Below Exam Limited By: No Limitations General Appearance: Alert, WD/WN, No Apparent Distress Nose: Normal Inspection Throat/Mouth: Normal Inspection Head: Atraumatic, Normocephalic Neck: Normal Inspection Respiratory/Chest: No Respiratory Distress, Lungs Clear, Normal Breath Sounds, No Accessory Muscle Use, Chest Non-Tender Cardiovascular: Normal Peripheral Pulses, Regular Rate, Rhythm, No Edema, No Gallop, No JVD, No Murmur, No Rub GI/Abdominal: Normal Bowel Sounds, No Distention, No Mass, Tender, Other (tenderness present on right upper quadrant & epigastic area-) Extremities: Normal Inspection Neurological: Alert, Oriented, CN II-XII Intact Course - Vital Signs Text/Narrative:: 50 year old female (alcoholic) came to ED with abdominal pain & intractable vomiting . After brief history & examination ,Vitals monitored BP= 147/100 pulse =105 temp 99.6 F Labs ordered ETOH level was 258 CXR normal -No gas under diaphragm. want to see kidney function before ordering ct abd I/V line established Multivitamin /mineral 10 ml / mg /folic acid 1mg /Magnesium sulphate 3gm in sodium chloride started at rate of 125 ml per minute inj Zofran 4 mg i/v push Gi cocktail given inj Dilaudid 2mg iv slow push given -The patient was comfortable for some time . She awoke up again & c/o intractable pain & asking for pain medication - inj deluded 2mg was repeated - I went to see the patient ,she was lying on left side & her belly was not moving - I tapped her ,she was unresponsive ,color of lip was blue Shouted for help started CPR - 2nd rescuer took over chest compression ,& I put mask on patient face give her two breath by mouth while waiting for Ambu bag - - As Ambu bag arrived ,I give two breath with ambu bag while chest compression continued .ventilation with mouth & mask &abmu bag was totally ineffective.I decided go for intubation quickly Intubation - I intubated quickly with ETT no 6 & cuff inflated ,intubation done without any gag response -checked intubation placement with stethoscope- ventilation continued with ambu bag IN mean time ,flight crew put Jon -chest compression system for chest compression .patient circulation came back ,saturation was 98 %.Chest compression stopped Ponce system was activated - I did hyperventilation for 1 minute at rate 16-18 breath/minute to eliminate co2 -the Ponce provider advised to slow down the rate to 10-12 breaths per minute . I want to change the tube to wide caliber to prevent passive aspiration, Ponce hospitalist advised not to change it .I did suction,she was responding to my stimuli.Pupils are not dilated But I was not assure regarding response to light . Medication used during resuscitation. 1-[id number] 2-narcan 2mg 3-narcan 2 mg I decided to shift patient to higher level of care .I hand over the patient to flight crew & came out to speak with receiving provider - I called to [facility] reception interviewer ,they do not have bed in ICU . I then reached [address] & spoke with dr Jacob & he accepted the patient . While I was completing the paper work,flight crew was taking care of patient . Last Recorded V/S: Last Vital Signs Temp 99.6 F 10/09/20 13:48 Pulse 105 H 10/09/20 13:48 Resp 18 10/09/20 13:48 BP 147/100 H 10/09/20 13:48 Pulse Ox 99 10/09/20 13:48 - Orders/Labs/Meds Labs: Laboratory Tests 10/09/20 10/09/20 10/09/20 Range/Units 13:48 13:48 13:50 WBC (4.0-11.0) K/uL RBC (3.80-5.80) M/uL Hgb (11.5-16.5) g/dL Hct (37.0-47.0) % MCV (76-96) fL MCH (27.0-32.0) pg MCHC (31.0-35.0) g/dL RDW (11.0-16.0) % Plt Count (150-500) K/uL MPV (6.0-10.0) fL Neut % (Auto) (45.0-70.0) % Lymph % (Auto) (20.0-40.0) % Storey % (Auto) (3.0-10.0) % Eos % (Auto) (1.0-5.0) % Baso % (Auto) (0.0-0.5) % Neut # (Auto) (2.00-7.50) K/uL Lymph # (Auto) (1.50-4.00) K/uL Storey # (Auto) (0.20-0.80) K/uL Eos # (Auto) (0.04-0.40) K/uL Baso # (Auto) (0.02-0.10) K/uL Sodium 137 (136-145) mmol/L Potassium 3.7 (3.5-5.1) mmol/L Chloride 98 (98-107) mmol/L Carbon Dioxide 26.3 (21.0-32.0) mmol/L Anion Gap 16.4 H (5.0-15.0) mmol/L BUN 18 (8-26) mg/dL Creatinine 0.77 (0.55-1.02) mg/dL Est Cr Clr Drug Dosing 85.94 mL/min Estimated GFR (MDRD) > 60 (>60) MLS/MIN BUN/Creatinine Ratio 23.4 (6-25) Glucose 98 (74-100) mg/dL Calcium 8.5 (8.5-10.1) mg/dL Total Bilirubin 0.9 (0.0-1.0) mg/dL AST 31 (15-37) U/L ALT 35 (12-78) U/L Alkaline Phosphatase 73 (46-116) U/L Troponin I < 0.017 (0.000-0.060) ng/mL Total Protein 8.2 (6.4-8.2) g/dL Albumin 4.2 (3.4-5.0) g/dL Globulin 4.0 (2.2-4.2) g/dL Albumin/Globulin Ratio 1.0 (0.8-2.0) Lipase (73-393) U/L Urine Color Yellow Urine Appearance Clear (CLEAR) Urine pH 6.0 (5.0-8.0) Ur Specific Baggs 1.010 (1.003-1.030) Urine Protein Trace H (NEGATIVE) mg/dL Urine Glucose (UA) Negative (NEGATIVE) mg/dL Urine Ketones Trace H (NEGATIVE) mg/dL Urine Occult Blood Negative (NEGATIVE) Urine Nitrite Negative (NEGATIVE) Urine Bilirubin Negative (NEGATIVE) Urine Urobilinogen 0.2 (0.2-1.0) E.U./dL Ur Leukocyte Esterase Negative (NEGATIVE) Urine RBC Not seen /HPF Urine WBC 0-5 H /HPF Ur Squamous Epith Cells Moderate /HPF Urine Bacteria Few /HPF Urine Opiates Screen Negative (NEGATIVE) Ur Oxycodone Screen Negative (NEGATIVE) Urine Methadone Screen Negative (NEGATIVE) Ur Barbiturates Screen Negative (NEGATIVE) Ur Tricyclics Screen Negative (NEGATIVE) Ur Phencyclidine Scrn Negative (NEGATIVE) Ur Amphetamine Screen Negative (NEGATIVE) U Methamphetamines Scrn Negative (NEGATIVE) Urine MDMA Screen Negative (NEGATIVE) U Benzodiazepines Scrn Negative (NEGATIVE) U Cocaine Metab Screen Negative (NEGATIVE) U Marijuana (THC) Screen Negative (NEGATIVE) Ethyl Alcohol (<3.0) mg/dL SARS CoV-2 RNA Rapid ARIN 10/09/20 10/09/20 10/09/20 Range/Units 13:51 13:53 16:00 WBC 6.2 D (4.0-11.0) K/uL RBC 5.39 (3.80-5.80) M/uL Hgb 14.5 D (11.5-16.5) g/dL Hct 43.5 (37.0-47.0) % MCV 81 (76-96) fL MCH 26.9 L (27.0-32.0) pg MCHC 33.3 (31.0-35.0) g/dL RDW 14.2 (11.0-16.0) % Plt Count 262 D (150-500) K/uL MPV 9.4 (6.0-10.0) fL Neut % (Auto) 50.5 (45.0-70.0) % Lymph % (Auto) 38.3 (20.0-40.0) % Storey % (Auto) 10.6 H (3.0-10.0) % Eos % (Auto) 0.3 L (1.0-5.0) % Baso % (Auto) 0.3 (0.0-0.5) % Neut # (Auto) 3.14 (2.00-7.50) K/uL Lymph # (Auto) 2.38 (1.50-4.00) K/uL Storey # (Auto) 0.66 (0.20-0.80) K/uL Eos # (Auto) 0.02 L (0.04-0.40) K/uL Baso # (Auto) 0.02 (0.02-0.10) K/uL Sodium (136-145) mmol/L Potassium (3.5-5.1) mmol/L Chloride (98-107) mmol/L Carbon Dioxide (21.0-32.0) mmol/L Anion Gap (5.0-15.0) mmol/L BUN (8-26) mg/dL Creatinine (0.55-1.02) mg/dL Est Cr Clr Drug Dosing mL/min Estimated GFR (MDRD) (>60) MLS/MIN BUN/Creatinine Ratio (6-25) Glucose (74-100) mg/dL Calcium (8.5-10.1) mg/dL Total Bilirubin (0.0-1.0) mg/dL AST (15-37) U/L ALT (12-78) U/L Alkaline Phosphatase (46-116) U/L Troponin I (0.000-0.060) ng/mL Total Protein (6.4-8.2) g/dL Albumin (3.4-5.0) g/dL Globulin (2.2-4.2) g/dL Albumin/Globulin Ratio (0.8-2.0) Lipase 248 D (73-393) U/L Urine Color Urine Appearance (CLEAR) Urine pH (5.0-8.0) Ur Specific Baggs (1.003-1.030) Urine Protein (NEGATIVE) mg/dL Urine Glucose (UA) (NEGATIVE) mg/dL Urine Ketones (NEGATIVE) mg/dL Urine Occult Blood (NEGATIVE) Urine Nitrite (NEGATIVE) Urine Bilirubin (NEGATIVE) Urine Urobilinogen (0.2-1.0) E.U./dL Ur Leukocyte Esterase (NEGATIVE) Urine RBC /HPF Urine WBC /HPF Ur Squamous Epith Cells /HPF Urine Bacteria /HPF Urine Opiates Screen (NEGATIVE) Ur Oxycodone Screen (NEGATIVE) Urine Methadone Screen (NEGATIVE) Ur Barbiturates Screen (NEGATIVE) Ur Tricyclics Screen (NEGATIVE) Ur Phencyclidine Scrn (NEGATIVE) Ur Amphetamine Screen (NEGATIVE) U Methamphetamines Scrn (NEGATIVE) Urine MDMA Screen (NEGATIVE) U Benzodiazepines Scrn (NEGATIVE) U Cocaine Metab Screen (NEGATIVE) U Marijuana (THC) Screen (NEGATIVE) Ethyl Alcohol 285.0 H (<3.0) mg/dL SARS CoV-2 RNA Rapid ARIN 10/09/20 Range/Units 17:25 WBC (4.0-11.0) K/uL RBC (3.80-5.80) M/uL Hgb (11.5-16.5) g/dL Hct (37.0-47.0) % MCV (76-96) fL MCH (27.0-32.0) pg MCHC (31.0-35.0) g/dL RDW (11.0-16.0) % Plt Count (150-500) K/uL MPV (6.0-10.0) fL Neut % (Auto) (45.0-70.0) % Lymph % (Auto) (20.0-40.0) % Storey % (Auto) (3.0-10.0) % Eos % (Auto) (1.0-5.0) % Baso % (Auto) (0.0-0.5) % Neut # (Auto) (2.00-7.50) K/uL Lymph # (Auto) (1.50-4.00) K/uL Storey # (Auto) (0.20-0.80) K/uL Eos # (Auto) (0.04-0.40) K/uL Baso # (Auto) (0.02-0.10) K/uL Sodium (136-145) mmol/L Potassium (3.5-5.1) mmol/L Chloride (98-107) mmol/L Carbon Dioxide (21.0-32.0) mmol/L Anion Gap (5.0-15.0) mmol/L BUN (8-26) mg/dL Creatinine (0.55-1.02) mg/dL Est Cr Clr Drug Dosing mL/min Estimated GFR (MDRD) (>60) MLS/MIN BUN/Creatinine Ratio (6-25) Glucose (74-100) mg/dL Calcium (8.5-10.1) mg/dL Total Bilirubin (0.0-1.0) mg/dL AST (15-37) U/L ALT (12-78) U/L Alkaline Phosphatase (46-116) U/L Troponin I (0.000-0.060) ng/mL Total Protein (6.4-8.2) g/dL Albumin (3.4-5.0) g/dL Globulin (2.2-4.2) g/dL Albumin/Globulin Ratio (0.8-2.0) Lipase (73-393) U/L Urine Color Urine Appearance (CLEAR) Urine pH (5.0-8.0) Ur Specific Baggs (1.003-1.030) Urine Protein (NEGATIVE) mg/dL Urine Glucose (UA) (NEGATIVE) mg/dL Urine Ketones (NEGATIVE) mg/dL Urine Occult Blood (NEGATIVE) Urine Nitrite (NEGATIVE) Urine Bilirubin (NEGATIVE) Urine Urobilinogen (0.2-1.0) E.U./dL Ur Leukocyte Esterase (NEGATIVE) Urine RBC /HPF Urine WBC /HPF Ur Squamous Epith Cells /HPF Urine Bacteria /HPF Urine Opiates Screen (NEGATIVE) Ur Oxycodone Screen (NEGATIVE) Urine Methadone Screen (NEGATIVE) Ur Barbiturates Screen (NEGATIVE) Ur Tricyclics Screen (NEGATIVE) Ur Phencyclidine Scrn (NEGATIVE) Ur Amphetamine Screen (NEGATIVE) U Methamphetamines Scrn (NEGATIVE) Urine MDMA Screen (NEGATIVE) U Benzodiazepines Scrn (NEGATIVE) U Cocaine Metab Screen (NEGATIVE) U Marijuana (THC) Screen (NEGATIVE) Ethyl Alcohol (<3.0) mg/dL SARS CoV-2 RNA Rapid RAIN Negative Meds: Medications Discontinued Medications Generic Name Dose Route Start Last Admin Trade Name Freq PRN Reason Stop Dose Admin Al Hydroxide/Mg Hydroxide 30 ml 10/09/20 14:04 10/09/20 14:06 Gi Cocktail PO 10/09/20 14:05 30 ml ONETIME ONE Administration Epinephrine HCl 1 mg 10/09/20 17:00 10/09/20 17:00 Adrenalin IVPUSH 10/09/20 17:01 1 mg NOW ONE Administration Hydromorphone HCl 2 mg 10/09/20 14:36 10/09/20 16:37 Dilaudid IVPUSH 10/09/20 14:37 2 mg ONETIME ONE Administration Hydromorphone HCl Confirm 10/09/20 14:47 10/09/20 14:41 Dilaudid Administered 10/09/20 14:48 Not Given Dose 2 mg .ROUTE .STK-MED ONE Hydromorphone HCl Confirm 10/09/20 16:44 10/09/20 17:35 Dilaudid Administered 10/09/20 16:45 Not Given Dose 2 mg .ROUTE .STK-MED ONE Hydromorphone HCl 2 mg 10/09/20 16:36 10/09/20 17:09 Dilaudid IVPUSH 10/09/20 16:37 Not Given ONETIME ONE Multivitamins/Minerals 10 ml/ 1,017.2 mls @ 125 mls/hr 10/09/20 14:15 10/09/20 14:08 Thiamine HCl 100 mg/ Folic IV 125 mls/hr Acid 1 mg/ Magnesium Sulfate 3 ASDIRECTED KELLEY Administration gm/ Sodium Chloride Thiamine HCl 100 mg/ Magnesium 1,017.2 mls @ as directed 10/09/20 13:16 Sulfate 3 gm/ Multivitamins/ IV 10/09/20 13:17 Minerals 10 ml/ Folic Acid 1 .STK-MED ONE mg/ Sodium Chloride Naloxone HCl 2 mg 10/09/20 16:59 10/09/20 17:02 Narcan IVPUSH 2 mg ONETIME PRN Administration Respiratory Depression Naloxone HCl 2 mg 10/09/20 17:33 10/09/20 16:59 Narcan IVPUSH 2 mg ONETIME PRN Administration Respiratory Depression Ondansetron HCl Confirm 10/09/20 16:04 10/09/20 16:04 Zofran Administered 10/09/20 16:05 Not Given Dose 4 mg .ROUTE .STK-MED ONE Ondansetron HCl 4 mg 10/09/20 16:04 10/09/20 16:04 Zofran IVPUSH 10/09/20 16:05 4 mg ONETIME ONE Administration Departure - Departure Time of Disposition: 17:55 Disposition: DC/Tfer to Acute Hospital 02 Condition: Fair Clinical Impression: Cardiac arrest Alcohol intoxication Qualifiers: Complication of substance-induced condition: uncomplicated Qualified Code(s): F10.920 - Alcohol use, unspecified with intoxication, uncomplicated - Discharge Information Referrals: PCP,None [Primary Care Provider] - Forms: ED Department Discharge Sepsis Event Note (ED) - Evaluation Sepsis Screening Result: No Definite Risk - Problem List & Annotations (1) Alcohol intoxication SNOMED Code(s): 25488055 Code(s): F10.929 - ALCOHOL USE, UNSPECIFIED WITH INTOXICATION, UNSPECIFIED Status: Acute Priority: Medium Onset Date: ~10/09/20 Qualifiers: Complication of substance-induced condition: uncomplicated Qualified Code(s): F10.920 - Alcohol use, unspecified with intoxication, uncomplicated (2) Cardiac arrest SNOMED Code(s): 315076134 Code(s): I46.9 - CARDIAC ARREST, CAUSE UNSPECIFIED Status: Acute Priority: High Onset Date: ~10/09/20 Annotation/Comment:: CPR done & tranfer to [facility]tru after stablizing - Assessment/Plan Plan: 1-alcohol intoxication 2-cardiac arrest CPR completed- pt recovered Transfer to higher level of care
--- NOTE | 2020-10-10 09:40 | CR ---
DATE OF SERVICE: 10/09/20 CLINICAL DATA: CHECK INTUBATION AP CHEST: Comparison is made to a prior exam performed on 10/09/20 at 1352 hours. An endotracheal tube has been inserted in the interval. The patient is in apical lordotic position and the tip of the endotracheal tube appears to be just below the thoracic inlet. The marianna is not adequately seen. The heart size is normal. There are increased markings in the perihilar regions bilaterally. No peripheral consolidation or effusions. No pneumothorax. [id number] [facility]
== END 2020-10-09 18:20 ==
LOC: LB.ED 13:15
DX: I46.9 Cardiac arrest, cause unspecified (principal); F10.120 Alcohol abuse with intoxication, uncomplicated; K21.9 Gastro-esophageal reflux disease without esophagitis; J45.909 Unspecified asthma, uncomplicated; I10 Essential (primary) hypertension; Z72.0 Tobacco use; Z20.822 Contact with and (suspected) exposure to COVID-19; Z88.5 Allergy status to narcotic agent; Z79.899 Other long term (current) drug therapy; Y90.8 Blood alcohol level of 240 mg/100 ml or more
CPT/HCPCS: 31500; 36415; 51702; 71045; 80053; 80307; 81001; 83690; 84484; 85025; 92950; 93005; 96365; 96366; 96375; 96376; 99285-25; A0425; A0429; A9270-GY; J0171; J1170; J2310; J2405; J3411; J3475; J3490; J7030; U0002

== ENCOUNTER 2021-09-16 14:12 | Emergency (ER) | payer MEDICAID ==
[2021-09-16] MEDS: Ondansetron 4 MG Tab.DIS PO ONE (14:25)
[2021-09-16] MEDS: Sodium Chloride 0.9% 1,000 ML IV ONE (14:59)
[2021-09-16] MEDS: Morphine 2 MG/ML SYRINGE IVPUSH ONE ×4 (14:59→17:13)
[2021-09-16] MEDS: Morphine 2 MG/ML SYRINGE ONE ×3 (15:00→17:16)
[2021-09-16] MEDS: Ondansetron 4 MG/2 ML SDV IVPUSH ONE ×2 (15:42→17:17)
[2021-09-16] MEDS: Ondansetron 4 MG/2 ML SDV ONE ×2 (15:54→17:16)
[2021-09-16] MEDS ORDERED: Ondansetron 4 MG Tab.DIS ONE (17:00)
[2021-09-16] MEDS ORDERED: traMADol 50 MG Tab ONE (17:00)
[2021-09-16] MEDS: Ketorolac 30 MG/ML SDV ONE (17:00)
[2021-09-16] MEDS: Ketorolac 30 MG/ML SDV IVPUSH ONE (17:01)
[2021-09-16 17:08] VITALS: BP 128/87; PULSE 106
[2021-09-16] MEDS: Pantoprazole 40 MG Vial ONE (17:16)
[2021-09-16] MEDS: Pantoprazole 40 MG Vial IVPUSH ONE (17:20)
== END 2021-09-16 17:55 | disposition home or self-care (01) ==
LOC: LB.ED 14:12
DX: K29.20 Alcoholic gastritis without bleeding (principal); I10 Essential (primary) hypertension; J45.909 Unspecified asthma, uncomplicated; K21.9 Gastro-esophageal reflux disease without esophagitis; Z72.0 Tobacco use; Z88.5 Allergy status to narcotic agent; Z79.899 Other long term (current) drug therapy
CPT/HCPCS: 36415; 80053; 80307; 81001; 82150; 83690; 85025; 96374; 96375; 96376; 99284; A9270; C9113; J1885; J2270; J2405; J7030

== ENCOUNTER 2023-08-12 18:43 | Emergency (ER) | payer MEDICAID ==
[2023-08-12] MEDS ORDERED: diphenhydrAMINE 50 MG/ML SDV IVPUSH ONE (18:51)
[2023-08-12] MEDS ORDERED: methylPREDNISolone Sodium Succinate 125 MG/2 ML SDV IVPUSH ONE (18:51)
[2023-08-12] MEDS ORDERED: Sodium Chloride 0.9% 10 ML Syringe FLUSH PRN (19:52)
[2023-08-12] MEDS ORDERED: predniSONE 10 MG Tab ONE (21:00)
[2023-08-12 21:01] VITALS: BP 157/100; PULSE 84
== END 2023-08-12 21:20 | disposition home or self-care (01) ==
LOC: LB.ED 18:43
DX: L23.2 Allergic contact dermatitis due to cosmetics (principal); I10 Essential (primary) hypertension; J45.909 Unspecified asthma, uncomplicated; Z90.710 Acquired absence of both cervix and uterus; Z88.5 Allergy status to narcotic agent
CPT/HCPCS: 96374; 96375; 99283-25; J1200; J2930; J3490; J7512